=== PATIENT | female | born 1990 | race Caucasian/White ===

== ENCOUNTER 2018-09-30 19:17 | Emergency (ER) | payer MEDICAID, SELFPAY ==
[2018-09-30 19:18] VITALS: BP 129/87; PULSE 98; RESP 17; TEMP 36.6; O2SAT 98; BMI 21.2
--- NOTE | 2018-09-30 20:48 | EKG12_ITS ---
Test Reason : CP Blood Pressure : / mmHG Vent. Rate : 071 BPM Atrial Rate : 071 BPM P-R Int : 156 ms QRS Dur : 088 ms QT Int : 386 ms P-R-T Axes : 008 070 052 degrees QTc Int : 419 ms Normal sinus rhythm Normal ECG Confirmed by CHARLETTE AGUILAR, GIOVANA ([id number]), editor house organ ANA MARIA AGARWAL ([id number]) on 10/04/2018 2:07:14 PM Referred By: Confirmed By:ASHA OVALLES MD
--- NOTE | 2018-09-30 20:55 | RAD_ITS ---
STUDY: X-RAY CHEST REASON FOR EXAM: Female, 28 years old. Increased fatigue TECHNIQUE: Single frontal image. COMPARISON: June 29, 2015 FINDINGS: The lungs are clear and expanded. There is no demonstrated pleural abnormality. Normal size heart. Normal mediastinum and tiffani. Normal visualized pulmonary arteries. Normal visualized aortic arch and descending thoracic aorta. Normal visualized thoracic spine. Normal visualized ribs, clavicles, and shoulders. There is no demonstrated abnormality of the visualized soft tissue structures of the upper abdomen. RAD/Chest 1 View (Portable) IMPRESSION: Normal x-ray examination of the chest. Electronically Signed: Sofia Martel MD at 21:12 EDT Tel , Service support ,
[2018-09-30 21:01] LABS: Mucous, Urine 0 SEEN /hpf (<or=2+); Red Blood Cells-Urine 0 SEEN /hpf (0-5); White Blood Cells 0 SEEN /hpf (0-5)
[2018-09-30 21:06] LABS: Color, Urine Yellow (Yellow); Glucose, Dipstick Normal (Normal); Ketone-Dipstick 5 mg/dl (Negative); Leukocyte Esterase-Dipstick 25 /ul (Negative); Nitrite-Dipstick Negative (Negative); Occult Blood-Urine Negative /ul (Negative); Protein-Dipstick Negative (Negative); Urine Bilirubin Dipstick Negative (Negative); Urine Clarity Sl. Cloudy (Clear); Urine Urobilinogen Normal (Normal)
[2018-09-30 21:14] LABS: Absolute Lymphocyte Count 1.61 X10^3/uL (0.83-4.51); Absolute Neutrophil Count 3.3 X10^3/uL (2.0-7.7); Basophil# 0.02 X10^3/uL; Basophil% 0.4 % (0-1); Eosinophil# 0.05 X10^3/uL; Hematocrit 34.3 % (37-47); Hemoglobin 11.8 g/dL (12.0-15.0); Lymphocyte # 1.61 X10^3/ul (4.0); Lymphocyte % 30.6 % (19-41); Mean Corp Hgb Conc 34.4 g/dL (32-36); Mean Corpuscular Hgb 30.6 pg (27.0-32.0); Mean Corpuscular Volume 89.1 fL (81-99); Mean Platelet Vol. 9.2 fl (6.2-12.0); Monocyte# 0.31 X10^3/uL; Monocyte% 5.9 % (0-10); NRBC Flagged by Analyzer 0 % (0-5); Neutrophil # 3.25 X10^3/uL (2.7-7.7); Neutrophil % 61.7 % (47-70); Platelet Count 139 K/mm3 (150-450); RBC Distribution Width CV 12.3 % (11.6-14.6); RBC Distribution Width SD 40.1 fl (35.1-43.9); Red Blood Count 3.85 M/mm3 (4.2-5.4); White Blood Count 5.3 K/mm3 (4.4-11.0)
[2018-09-30 21:16] LABS: Bacteria 1+ /hpf (None Seen); Squamous Epithelial Cells - UA 5-10 SEEN /hpf (5-10)
[2018-09-30 21:18] VITALS: BP 124/86; PULSE 89; RESP 16; O2SAT 97
[2018-09-30 21:22] LABS: Internal QC Validated? YES +Cl - CLEAR BKGD; Pregnancy, Serum, hCG Quali. NEGATIVE Negative
[2018-09-30] MEDS: 0.9% Normal Saline 1,000 ML 1000 ML IV (21:33)
[2018-09-30 21:38] LABS: Anion Gap 5 (5-15); BUN 14 mg/dL (7-18); BUN/Creat Ratio 17.2 RATIO (10-20); Calcium,Total 9.2 mg/dL (8.5-10.1); Chloride 106 mmol/L (98-107); Creatinine, Serum 0.81 mg/dL (0.55-1.02); EST Glomerular Filtration Rate 89 mL/min (>60); Est Glom Filt Rate - Afr Amer 107 mL/min (>60); Estimated Creatinine Clearance 93.05 ml/min; Glucose 89 mg/dL (74-106); Potassium 3.9 mmol/L (3.5-5.1); Sodium Level 138 mmol/L (136-145); Thyroid Stim Hormone (TSH) 1.53 uIU/mL (0.358-3.74)
--- NOTE | 2018-09-30 22:08 | ED.DCSUM_ITS ---
- ER Visit Summary Date of Service: 09/30/18 Chief Complaint: Fatigue History of Present Illness: The patient is a 28 F presenting with fatigue. Patient states she has felt tired for the past couple of weeks. She states she fell asleep at work today. She denies passing out. She states she just feels very tired and fatigued. She denies fever. She denies chest pain or shortness of breath. Denies abdominal pain, nausea, vomiting, diarrhea. She denies urinary complaints. She denies weakness or numbness. She has a history of anemia while . She is unsure if she could be currently. Physical Examination: Vitals are stable. Patient is afebrile. Alert no acute distress. HEENT exam is unremarkable. Neck is supple. No meningismus Lungs are clear and equal bilaterally. Heart is regular rate and rhythm. Abdomen is soft nontender nondistended. Extremities are unremarkable. Skin is warm and dry. No focal neurologic deficit. Remainder of exam is unremarkable. Emergency Department Course and Treatment: EKG is sinus rhythm rate of 71 with no acute ischemic changes. Chest x-ray shows no acute process. CBC normal except hemoglobin 11.8, platelet 139. Chemistries unremarkable. TSH is normal. Urinalysis unremarkable. Troponin is negative. hCG negative. [place] negative. Patient given IV fluids. On reevaluation she is resting comfortably. She is advised to follow up with primary care physician. Advised return to ED for worsening complaints. Disposition: Discharge home Impression: Fatigue This note was generated with [employer] dictation software. It may contain incorrect words, spelling, and punctuation that were not noted in review of the chart prior to signing ED Disposition - Plan for ED Patient: Referrals: Kwasi Yan III, MD [STAFF PHYSICIAN] - Additional Instructions: You were seen in the ED today for fatigue. There was no emergent cause found. Follow-up with Dr. Yan, primary care physician
[2018-09-30 22:36] LABS: Internal QC Validated? YES +Cl - CLEAR BKGD; Monotest Negative (Negative)
[2018-09-30 23:00] VITALS: BP 128/85; PULSE 85; RESP 16; O2SAT 98
--- NOTE | 2018-09-30 23:14 | ED.DEP ---
ED Disposition - Plan for ED Patient: Referrals: Kwasi Yan III, MD [STAFF PHYSICIAN] - Additional Instructions: You were seen in the ED today for fatigue. There was no emergent cause found. Follow-up with Dr. Yan, primary care physician
--- NOTE | 2018-09-30 23:19 | ED.RN ---
bedside report given to leora mc
[2018-09-30 23:43] VITALS: BP 115/76; PULSE 68; RESP 16; O2SAT 100
== END 2018-09-30 23:44 | disposition home or self-care (01) ==
LOC: ED 20:46
PROVIDERS: Emergency Provider Emergency Medicine
DX: R53.83 Other fatigue (principal)
CPT/HCPCS: 71045; 80048; 81001; 84443; 84484; 84703; 85025; 86308; 93005; 99283; J7030; A4216

== ENCOUNTER 2019-10-06 19:57 | Emergency (ER) | payer MEDICAID, SELFPAY ==
[2019-10-06 19:58] VITALS: BP 150/88; PULSE 80; RESP 18; TEMP 36.3; O2SAT 97; BMI 20.9
--- NOTE | 2019-10-06 20:27 | CT_ITS ---
STUDY: CT BRAIN WITHOUT CONTRAST REASON FOR EXAM: Female, 29 years old. HEADACHE X 2 DAYS. NKI. Not =-pt. shielded RADIATION DOSAGE (If Supplied By Facility): CTDIvol = ( 44.99 ) mGy, DLP = ( 796.11 ) mGycm TECHNIQUE: Transaxial CT imaging of the brain was performed without administration of intravenous contrast material. Individualized dose optimization techniques were used for this CT. COMPARISON: No relevant priors. FINDINGS: Normal soft tissue structures. Normal calvarium. Normal size ventricles and extra-axial spaces for the patient''s age. Normal white matter tracts of the cerebral hemispheres. Normal basal ganglia and thalami. Normal brainstem. Normal cerebellum. There is no intracranial hemorrhage. There are no findings of an acute ischemic infarction. Normal visualized paranasal sinuses. CT/Brain/Head without Contrast IMPRESSION: Normal unenhanced CT scan of the brain. Electronically Signed: Madie Khanna MD at 21:03 EDT Tel , Service support ,
[2019-10-06 20:57] LABS: Absolute Neutrophil Count 2.2 X10^3/uL (2.0-7.7); Basophil# 0.02 X10^3/uL; Basophil% 0.4 % (0-1); Eosinophil# 0.07 X10^3/uL; Eosinophils% 1.6 % (0-5); Hemoglobin 11.7 g/dL (12.0-15.0); Lymphocyte % 40.3 % (19-41); Mean Corp Hgb Conc 33.4 g/dL (32-36); Mean Corpuscular Hgb 30.6 pg (27.0-32.0); Mean Corpuscular Volume 91.6 fL (81-99); Mean Platelet Vol. 9.7 fl (6.2-12.0); Monocyte# 0.39 X10^3/uL; Monocyte% 8.7 % (0-10); NRBC Flagged by Analyzer 0 % (0-5); Neutrophil # 2.18 X10^3/uL (2.7-7.7); Neutrophil % 48.8 % (47-70); Platelet Count 167 K/mm3 (150-450); RBC Distribution Width CV 11.9 % (11.6-14.6); RBC Distribution Width SD 39.5 fl (35.1-43.9); Red Blood Count 3.82 M/mm3 (4.2-5.4); White Blood Count 4.5 K/mm3 (4.4-11.0)
[2019-10-06 21:02] LABS: Internal QC Validated? YES +Cl - CLEAR BKGD; Pregnancy, Serum, hCG Quali. NEGATIVE Negative
[2019-10-06 21:04] LABS: Anion Gap 3 (5-15); BUN 17 mg/dL (7-18); BUN/Creat Ratio 19.3 RATIO (10-20); Calcium,Total 8.9 mg/dL (8.5-10.1); Chloride 111 mmol/L (98-107); Creatinine, Serum 0.88 mg/dL (0.55-1.02); EST Glomerular Filtration Rate 81 mL/min (>60); Est Glom Filt Rate - Afr Amer 97 mL/min (>60); Estimated Creatinine Clearance 81.45 ml/min; Glucose 120 mg/dL (74-106); Potassium 3.8 mmol/L (3.5-5.1); Sodium Level 140 mmol/L (136-145)
[2019-10-06] MEDS: Ketorolac 15 MG/ML Vial IV (21:12)
[2019-10-06] MEDS: 0.9% Normal Saline 1,000 ML 1000 ML IV (21:12)
--- NOTE | 2019-10-06 21:29 | ED.DCSUM_ITS ---
- ER Visit Summary Date of Service: 10/06/19 Chief Complaint: Headache History of Present Illness: The patient is a 29 F with no primary care physician. She reports that she has a headache that began 2 days ago. It began on the right side of her head and is gradually spread. She describes it as a sharp pain that feels like someone yanking my hair. 10 of 10 at worst and 7 out of 10 currently. Is worsened by touching her head. Is relieved by nothing. She denies any associated nausea, vomiting, photophobia, or change in her vision. She denies any recent injury to her head. Patient reports she is never had anything like this before. No family history of migraines or aneurysms. Her review of systems is otherwise negative. Physical Examination: Vitals: Stable. Afebrile. General: Well-nourished and well-developed. Head: Normocephalic atraumatic. Neck: Supple, no lymphadenopathy. No JVD. Nontender. Cardiovascular: Regular rate and rhythm. No murmurs. Respiratory: No respiratory distress. Clear to auscultation bilaterally. Abdominal: Soft, nontender, nondistended, normal bowel sounds. No guarding, rebound, or peritoneal signs. Back: Nontender. Extremities: Nontender, no edema. Skin: Normal color, no rash. Neurologic: Alert and oriented ?3. Cranial nerves II through XII are intact. Normal strength and sensation. Psych: Normal affect. Test Results: CBC shows an H&H of 11.7 and 35.0. Chem-7 shows a chloride of 111 and glucose 120. test is negative. Clinical Impression(s) from Imaging Studies Brain CT 10/06/19 20:27 IMPRESSION: Normal unenhanced CT scan of the brain. Electronically Signed: Madie Khanna MD at 21:03 EDT Tel , Service support , Emergency Department Course and Treatment: Patient had an IV placed. She was given a liter of normal saline and Toradol IV. She is resting comfortably. Treatment Plan: Had a prolonged discussion the patient this time I do not have an explanation for her headache. She is instructed on symptomatic care. Push fluids. Follow-up with Dr. Alejandre in 1 to 2 days if not improving. Return to t emergency department for any worsening symptoms. Disposition: To home in improved and stable condition. Impression: 1. Cephalgia. This note was generated with [employer] dictation software. It may contain incorrect words, spelling, and punctuation that were not noted in review of the chart prior to signing ED Disposition - Plan for ED Patient: Instructions: ED Headache Unspecified Prescriptions: Metoclopramide [Reglan] 10 mg PO 4X/DAY PRN #20 tab PRN Reason: Headache Prescription Printed Referrals: Kaye Alejandre MD [STAFF PHYSICIAN] - 1-2 Days if not improving
[2019-10-06 21:56] VITALS: PULSE 72; RESP 16; O2SAT 99
== END 2019-10-06 21:57 | disposition home or self-care (01) ==
LOC: ED 20:29
PROVIDERS: Emergency Provider Emergency Medicine
DX: R51 Headache (principal)
CPT/HCPCS: 70450; 80048; 84703; 85025; 96361; 96374; 99283; A4216

== ENCOUNTER 2023-03-06 17:54 | Emergency (ER) | payer MEDICAID, SELFPAY ==
[2023-03-06 17:55] VITALS: BP 116/72; PULSE 98; RESP 14; TEMP 36.2; O2SAT 100; BMI 22.9
--- NOTE | 2023-03-06 18:30 | EDS_ITS ---
HPI HPI - Female History of Present Illness Chief Complaint: Vag Bleeding PFSH PFSH Medical History (Updated 03/06/23 @ 18:21 by Dayana Olivares) Anemia Syncopal episodes Home Medications metoclopramide HCl 10 mg tablet 10 mg PO 4X/DAY PRN Headache #20 tabs 10/06/19 [Rx Last Taken Unknown] norethindrone acetate 1 mg-ethinyl estradiol 20 mcg tablet 1 tab PO DAILY 10/06/19 [History Last Taken Unknown] Allergy/AdvReac Type Severity Reaction Status Date / Time No Known Allergies Allergy Verified 03/06/23 17:54 Social History Smoking Status: Never smoker EXAM Physical Exam Const Vital Signs: 03/06/23 17:55 03/06/23 20:23 Temperature 97.2 F L Temperature Source Temporal Pulse Rate 98 82 Respiratory Rate 14 16 Blood Pressure 116/72 129/88 H Blood Pressure Mean 86 101 Pulse Ox 100 97 Oxygen Delivery Method Room Air MDM MDM MDM Narrative Medical decision making narrative: HISTORY OF PRESENT ILLNESS: 32-year-old female presents with vaginal bleeding. Notes she think she is on her period. Started menstrual cycle on Thursday. Notes things were normal . Then she developed heavier bleeding today soaking through 2 sets of pads prior to arrival. Denies any chest pain, shortness of breath, syncope, fatigue. D enies any abdominal pain. Denies blood thinners REVIEW OF SYSTEMS: Pertinent positives: Vaginal bleeding Pertinent negatives: Pain, chest pain, shortness breath, fatigue, lightheadedness, syncope PHYSICAL EXAM: Nursing triage notes reviewed, Vital signs reviewed Constitutional: please see mdm HENT: MMM Eyes: Pupils equal round and reactive to light, Extraocular muscles intact Neck: No stridor, no JVD, full neck ROM Lungs: Clear to auscultation, No wheezing or rales. No increased work of breathing, no conversational dyspnea, no accessory muscle use, no nasal flaring. No respiratory distress noted Heart: Regular rate and rhythm, No murmurs, No rubs and No gallops, 2+ distal pulses (radial, femoral, posterior tibial) in all extremities Abdomen: Soft, there is no tenderness, rigidity, rebound or guarding, no obvious peritoneal signs, no palpable pulsatile abdominal masses, no auscultated abdominal bruit : No CVAT Extremities: No edema Neuro: No focal neurological deficits, cranial nerves II through XII intact, 5/5 strength in all extremities. Intact sensation to light touch in all extremities, 2+ reflexes bilateral patella tendons. Normal gait. No ataxia. Skin: No rash or lesions noted MEDICAL DECISION MAKING: Chief Complaint: Vaginal bleeding External records reviewed: Prior labs reviewed: Baseline hemoglobin 1.7 from 2019 Factors affecting care: none, no blood thinners Social determinants of health: none History obtained from others: none Consults: none MDM Narrative: 32-year-old female presents with heavy vaginal bleeding. Abdominal exam is milind ign I considered the following differential diagnosis: Anemia, , ectopic , abnormal uterine bleeding I obtained a broad lab workup to further elucidate the etiology of the patient's complaints ALL IMAGES (IF OBTAINED) HAVE BEEN PERSONALLY REVIEWED AND INTERPRETED BY MYSELF. CBC shows no leukocytosis, mild stable anemia, noted mild thrombocytopenia similar to prior BMP without evidence of significant electrolyte abnormalities, no anion gap, no acute kidney injury. Urinalysis shows no evidence of urinary inflammation suggestive of UTI Urine test is negative The synthesis of the patient's history, physical exam labs suggest no life- threatening etiology likely abnormal uterine bleeding. Indication for transfusion or further ED evaluation or admission at this time. Patient is appropriate discharge home with close OB follow-up. The patient and/or family, caregivers express understanding. The patient and/or family, caregivers agrees with the plan. Shared decision making: I will have a discussion with the patient and or visitors regarding risk/benefits of further testing or admission. They will be made aware of of the risk/benefits inherent in this decision they will be given the opportunity to voice understanding. Total critical care time today provided was at least 0 minutes. This excludes separately billable procedures. Critical care time (if documented) is secondary to the patient having high probability of clinically significant/life threatening deterioration in the patient's condition which required my urgent intervention. Impression: 1. Heavy vaginal bleeding 2. Anemia 3. Thrombocytopenia Dispo: Discharge Lab Data Labs: Laboratory Results - last 24 hr 03/06/23 03/06/23 16:45 19:10 WBC 3.8 L RBC 3.45 L Hgb 10.7 L Hct 30.9 L MCV 89.6 MCH 31.0 MCHC 34.6 RDW Std Deviation 40.8 RDW Coeff of Yoseph 12.6 Plt Count 141 L MPV 8.9 Immature Gran % (Auto) 0.300 Neut % (Auto) 64.0 Lymph % (Auto) 28.9 Starke % (Auto) 5.8 Eos % (Auto) 0.5 Baso % (Auto) 0.5 Absolute Neuts (auto) 2.4 Absolute Lymphs (auto) 1.10 Nucleated RBC % 0 Sodium 140 Potassium 3.8 Chloride 108 H Carbon Dioxide 28.0 Anion Gap 4 L BUN 11 Creatinine 0.80 Estim Creat Clear Calc 87.18 Est GFR (MDRD) Af Amer 106 Est GFR (MDRD) Non-Af 88 BUN/Creatinine Ratio 13.8 Glucose 90 Calcium 9.5 Urine Color SEE COMMENT BELOW Urine Clarity Cloudy Urine pH 7.0 Ur Specific [place] 1.010 Urine Protein 100 H Urine Glucose (UA) Normal Urine Ketones Negative Urine Occult Blood 250 H Urine Nitrite Negative Urine Bilirubin Negative Urine Urobilinogen Normal Ur Leukocyte Esterase 25 H Urine Test Negative Blood Type A POSITIVE Discharge Plan Triage Chief Complaint: Vag Bleeding ED Provider: Dimitri Jerez Dx/Rx/DC Orders Instructions: ED Dysfunctional Uterine Bleeding Prescriptions: No Action norethindrone ac-eth estradiol 1 EACH tablet 1 tab PO DAILY metoclopramide HCl 10 MG tablet 10 mg PO 4X/DAY PRN (Reason: Headache) Qty: 20 0RF Primary Care Provider: Care Physician,No Primary Referrals: Renate East MD [Med Staff - Active Staff] - Activity Restrictions/Additional Instructions: Thank you for trusting us with your care today! Your hemoglobin level (the blood test we used to determine if you are anemic or have low blood counts) was 10.7 today. Downtrending slightly from prior hemoglobin in 2019 of 11.7. It is not at the significant level of 7. Did not require blood transfusion. You are okay to be discharged. You should follow-up with [facility] the next available appointment. Please return if you develop chest pain, shortness of breath, if you lose consciousness, you develop lightheadedness, excessive fatigue or pallor of your skin. Please take Tylenol (2 pills, 650 mg), ibuprofen (2 pills, 400 mg) every 6 hours as needed for pain and fever control. Please return to the emergency department if your symptoms change or worsen. Please follow with your primary care physician for further outpatient evaluation and management. Disposition Disposition: Home, Self Care Discharge Date/Time: 03/06/23 20:25
[2023-03-06 18:57] LABS: Absolute Neutrophil Count 2.4 X10^3/uL (2.0-7.7); Basophil# 0.02 X10^3/uL; Basophil% 0.5 % (0-1); Eosinophil# 0.02 X10^3/uL; Eosinophils% 0.5 % (0-5); Hematocrit 30.9 % (37-47); Hemoglobin 10.7 g/dL (12.0-15.0); Lymphocyte % 28.9 % (19-41); Mean Corp Hgb Conc 34.6 g/dL (32-36); Mean Corpuscular Volume 89.6 fL (81-99); Mean Platelet Vol. 8.9 fl (6.2-12.0); Monocyte# 0.22 X10^3/uL; Monocyte% 5.8 % (0-10); NRBC Flagged by Analyzer 0 % (0-5); Neutrophil # 2.44 X10^3/uL (2.7-7.7); Platelet Count 141 K/mm3 (150-450); RBC Distribution Width CV 12.6 % (11.6-14.6); RBC Distribution Width SD 40.8 fl (35.1-43.9); Red Blood Count 3.45 M/mm3 (4.2-5.4); White Blood Count 3.8 K/mm3 (4.4-11.0)
[2023-03-06] MEDS: 0.9% Normal Saline (1000mL) 1,000 ML 1000 ML IV (19:08)
[2023-03-06 19:09] LABS: Anion Gap 4 (5-15); BUN 11 mg/dL (7-18); BUN/Creat Ratio 13.8 RATIO (10-20); Calcium,Total 9.5 mg/dL (8.5-10.1); Chloride 108 mmol/L (98-107); EST Glomerular Filtration Rate 88 mL/min (>60); Est Glom Filt Rate - Afr Amer 106 mL/min (>60); Estimated Creatinine Clearance 87.18 ml/min; Glucose 90 mg/dL (74-106); Potassium 3.8 mmol/L (3.5-5.1); Sodium Level 140 mmol/L (136-145)
[2023-03-06 19:22] LABS: Glucose, Dipstick Normal (Normal); Ketone-Dipstick Negative (Negative); Leukocyte Esterase-Dipstick 25 /ul (Negative); Nitrite-Dipstick Negative (Negative); Occult Blood-Urine 250 /ul (Negative); Protein-Dipstick 100 mg/dl (Negative); Urine Bilirubin Dipstick Negative (Negative); Urine Clarity Cloudy (Clear); Urine Urobilinogen Normal (Normal)
[2023-03-06 20:04] LABS: Color, Urine SEE COMMENT BELOW (Yellow); Internal QC Validated? YES +Cl - CLEAR BKGD; Pregnancy, Urine Negative Negative
[2023-03-06 20:23] VITALS: BP 129/88; PULSE 82; RESP 16; O2SAT 97
== END 2023-03-06 20:25 | disposition home or self-care (01) ==
PROVIDERS: Emergency Provider Emergency Medicine; Visit Provider Emergency Medicine
DX: N93.9 Abnormal uterine and vaginal bleeding, unspecified (principal); D69.6 Thrombocytopenia, unspecified; D64.9 Anemia, unspecified
CPT/HCPCS: 80048; 81002; 81025; 85025; 86900; 86901; 96360; 99282; J7030

== ENCOUNTER → 2023-03-13 | Outpatient (CLI) | payer MEDICAID, SELFPAY ==
[2023-03-13 09:19] LABS: Absolute Lymphocyte Count 1.27 X10^3/uL (0.83-4.51); Absolute Neutrophil Count 1.8 X10^3/uL (2.0-7.7); Basophil# 0.03 X10^3/uL; Basophil% 0.8 % (0-1); Eosinophil# 0.07 X10^3/uL; Hematocrit 33.6 % (37-47); Lymphocyte # 1.27 X10^3/ul (0.83-4.51); Mean Corp Hgb Conc 32.7 g/dL (32-36); Mean Corpuscular Hgb 29.8 pg (27.0-32.0); Mean Corpuscular Volume 91.1 fL (81-99); Mean Platelet Vol. 9.6 fl (6.2-12.0); Monocyte# 0.36 X10^3/uL; Monocyte% 10.2 % (0-10); NRBC Flagged by Analyzer 0 % (0-5); Neutrophil # 1.79 X10^3/uL (2.7-7.7); Neutrophil % 50.7 % (47-70); Platelet Count 183 K/mm3 (150-450); RBC Distribution Width CV 12.2 % (11.6-14.6); RBC Distribution Width SD 40.5 fl (35.1-43.9); Red Blood Count 3.69 M/mm3 (4.2-5.4); White Blood Count 3.5 K/mm3 (4.4-11.0)
[2023-03-13 09:43] LABS: Ferritin 6 ng/mL (8-252); Iron 54 ug/dL (50-170); Iron Binding Capacity,Total 383 ug/dL (250-450); PERCENT IRON SATURATION 14.1 % (15.0-55.0)
== END | disposition home or self-care (01) ==
PROVIDERS: Referring Provider Obstetrics & Gynecology; Visit Provider Obstetrics & Gynecology
DX: D64.9 Anemia, unspecified (principal)
CPT/HCPCS: 36415; 82728; 83540; 83550; 85025

== ENCOUNTER → 2023-03-19 | Outpatient (CLI) | payer MEDICAID, SELFPAY ==
--- NOTE | 2023-03-19 16:18 | US_ITS ---
STUDY: ULTRASOUND OF THE FEMALE PELVIS - LIMITED REASON FOR EXAM: Female, 32 years old abnormal uterine bleeding TECHNIQUE: Transabdominal and Transvaginal TECHNICAL QUALITY: Adequate. COMPARISON: None. FINDINGS: The uterus is anteverted and is in a midline position. The uterus measures 10.9 x 7.1 x 5.6 cm. Normal uterine cervix. The endometrium measures 17.1 mm in thickness, and is heterogeneous (striated). There is no demonstrated endometrial mass. There is no demonstrated myometrial mass. The right ovary measures 3.8 x 2.6 x 2.1 cm. There is a septated 2.4 cm cyst. . There is normal arterial and normal venous vascularity. The left ovary measures 2.8 x 3.3 x 1.8 cm. There is no left ovarian cyst or ovarian mass. There is no visualized left adnexal mass or complex lesion. There is normal arterial and normal venous vascularity. There is no fluid in the cul-de-sac. Bladder is sonographically normal US/Pelvic w/ Transvaginal IMPRESSION: Endometrium is heterogeneous and thickened but still within normal range for a patient of this age. An underlying polyp could be present and overlooked due to the heterogeneity of the endometrium. Recommend a 3-4 week follow-up ultrasound to see if the endometrium remains abnormally thickened or returns to more normal expected thickness, or MRI could be performed for further evaluation of the uterus and endometrium. Septated right ovarian cyst, no specific follow-up needed Sonographically normal left ovary Electronically Signed: Cory Cuevas MD at 17:31 EST ,
--- OUTSIDE RECORDS SUMMARY | 2023-03-19 16:30 | XMS RPT_ITS | CCD ---
Author Name Unknown Address [address] [place] [address] Organization [facility] Care Team Providers Care Key Holder Name Role Phone Unavailable Primary Care Provider Unavailabl e Medications Current Medications Medication Drug Class(es) Dates Sig (Normalized) Sig (Original) cetirizine hydrochloride 10 mg oral tablet (1 source) Histamine-1 Receptor Antagonist Start: 06-14-2022 End: 07-14-2022 take 1 tablet by mouth once daily cetirizine (ZYRTEC) 10 mg tablet Take 1 tablet by mouth once daily. 30 tablet 0 06/14/2022 07/14/2022 Active Completed/Discontinued Medications Medication Drug Class(es) Dates Sig (Normalized) Sig (Original) benzonatate 100 mg oral capsule (1 source) Non-narcotic Antitussive Start: 08-28-2018 End: 10-30-2021 take 2 capsules by mouth every eight hours as needed benzonatate (TESSALON PERLE) 100 mg capsule Take 2 capsules by mouth three times daily as needed. 30 capsule 0 08/28/2018 10/30/2021 Discontinued (Course of therapy completed) Problems Active Problems Problem Classification Problem Date Documented Date Episodic/Chronic Administrative/social admission (1 source) Patient encounter status; Translations: [Encounter for other administrative examinations] Episodic Cardiac dysrhythmias (2 sources) Palpitations; Translations: [Palpitations] Episodic Other complications of (5 sources) Anemia of ; Translations: [Anemia complicating , unspecified trimester] Onset: 03-17-2014 03-17-2014 Chronic Other ear and sense organ disorders (1 source) Acute otitis externa of left ear; Translations: [Unspecified acute noninfective otitis externa, left ear] Episodic Other eye disorders (1 source) Vitreous floaters; Translations: [Other vitreous opacities, unspecified eye] Chronic Other upper respiratory infections (4 sources) Pharyngitis; Translations: [Acute pharyngitis, unspecified] Episodic Past or Other Problems Problem Classification Problem Date Documented Da te Episodic/Chronic Short gestation; low weight; and growth retardation (5 sources) growth restriction; Translations: [IUGR (intrauterine growth restriction)] Onset: 05-31-2014 03-04-2021 Episodic Results Test Name Value Interpretation Reference Range Facil ity Vital Signs Date Time Vital Sign Value Performing Clinician Desiree craig 01-13-2023 19:11-0500 Body temperature 97.59 [degF] Domenic Guo LEGAL OFFICE ADMINISTRATOR.DENTISTRY PROFESSOR Work Phone: [facility] 01-13-2023 19:11-0500 Body weight 59.33 kg Domenic Guo LEGAL OFFICE ADMINISTRATOR.DENTISTRY PROFESSOR Work Phone: [facility] 01-13-2023 19:11-0500 Diastolic blood pressure 74 mm[Hg] Domenic Guo LEGAL OFFICE ADMINISTRATOR.DENTISTRY PROFESSOR Work Phone: [facility] 01-13-2023 19:11-0500 Heart rate 82 /min Domenic Guo LEGAL OFFICE ADMINISTRATOR.DENTISTRY PROFESSOR Work Phone: [facility] 01-13-2023 19:11-0500 Respiratory rate 18 /min Domenic Guo LEGAL OFFICE ADMINISTRATOR.DENTISTRY PROFESSOR Work Phone: [facility] 01-13-2023 19:11-0500 SaO2% (BldA) [Mass fraction] 99 % Domenic Guo LEGAL OFFICE ADMINISTRATOR.DENTISTRY PROFESSOR Work Phone: [facility] 01-13-2023 19:11-0500 Systolic blood pressure 110 mm[Hg] Domenic Guo LEGAL OFFICE ADMINISTRATOR.DENTISTRY PROFESSOR Work Phone: [facility] 01-03-2023 09:37-0400 Body temperature 97.7 [degF] Thao Dash LEGAL OFFICE ADMINISTRATOR.DENTISTRY PROFESSOR Work Phone: [facility] 01-03-2023 09:37-0400 Body weight 59.42 kg Thao Linden LEGAL OFFICE ADMINISTRATOR.DENTISTRY PROFESSOR Work Phone: [facility] 01-03-2023 09:37-0400 Diastolic blood pressure 66 mm[Hg] Thao Linden LEGAL OFFICE ADMINISTRATOR.DENTISTRY PROFESSOR Work Phone: [facility] 01-03-2023 09:37-0400 Heart rate 97 /min Thao Linden LEGAL OFFICE ADMINISTRATOR.DENTISTRY PROFESSOR Work Phone: [facility] 01-03-2023 09:37-0400 Respiratory rate 16 /min Thao Dash LEGAL OFFICE ADMINISTRATOR.DENTISTRY PROFESSOR Work Phone: [facility] 01-03-2023 09:37-0400 SaO2% (BldA) [Mass fraction] 98 % Thao Linden LEGAL OFFICE ADMINISTRATOR.DENTISTRY PROFESSOR Work Phone: [facility] 01-03-2023 09:37-0400 Systolic blood pressure 110 mm[Hg] Thao Linden LEGAL OFFICE ADMINISTRATOR.DENTISTRY PROFESSOR Work Phone: [facility] 06-14-2022 10:58-0400 Body temperature 96.49 [degF] Rabia Athy PA-C Work Phone: [facility] 06-14-2022 10:58-0400 Body weight 60.06 kg Rabia Athy PA-C Work Phone: [facility] 06-14-2022 10:58-0400 Diastolic blood pressure 62 mm[Hg] Rabia Athy PA-C Work Phone: [facility] 06-14-2022 10:58-0400 Heart rate 81 /min Rabia Athy PA-C Work Phone: [facility] 06-14-2022 10:58-0400 Respiratory rate 18 /min Rabia Athy PA-C Work Phone: [facility] 06-14-2022 10:58-0400 SaO2% (BldA) [Mass fraction] 98 % Rabia Athy PA-C Work Phone: [facility] 06-14-2022 10:58-0400 Systolic blood pressure 110 mm[Hg] Rabia Athy PA-C Work Phone: [facility] 12-14-2021 12:13-0400 Body temperature 99.1 [degF] Dixie Tovar LEGAL OFFICE ADMINISTRATOR.DENTISTRY PROFESSOR Work Phone: [facility] 12-14-2021 12:13-0400 Body weight 58.51 kg Dixie Tovar LEGAL OFFICE ADMINISTRATOR.DENTISTRY PROFESSOR Work Phone: [facility] 12-14-2021 12:13-0400 Diastolic blood pressure 80 mm[Hg] Dixie Tovar LEGAL OFFICE ADMINISTRATOR.DENTISTRY PROFESSOR Work Phone: [facility] 12-14-2021 12:13-0400 Heart rate 97 /min Dixie Tovar LEGAL OFFICE ADMINISTRATOR.DENTISTRY PROFESSOR Work Phone: [facility] 12-14-2021 12:13-0400 Respiratory rate 16 /min Dixie Tovar LEGAL OFFICE ADMINISTRATOR.DENTISTRY PROFESSOR Work Phone: [facility] 12-14-2021 12:13-0400 SaO2% (BldA) [Mass fraction] 99 % Dixie Tovar LEGAL OFFICE ADMINISTRATOR.DENTISTRY PROFESSOR Work Phone: [facility] 12-14-2021 12:13-0400 Systolic blood pressure 128 mm[Hg] Dixie Tovar LEGAL OFFICE ADMINISTRATOR.DENTISTRY PROFESSOR Work Phone: [facility] 10-30-2021 11:24-0400 Body height 162.6 cm Ursula Older LEGAL OFFICE ADMINISTRATOR.DENTISTRY PROFESSOR Work Phone: [facility] 10-30-2021 11:24-0400 Body weight 57.15 kg Ursula Older LEGAL OFFICE ADMINISTRATOR.DENTISTRY PROFESSOR Work Phone: [facility] 10-30-2021 11:24-0400 Diastolic blood pressure 72 mm[Hg] Ursula Older LEGAL OFFICE ADMINISTRATOR.DENTISTRY PROFESSOR Work Phone: [facility] 10-30-2021 11:24-0400 Heart rate 102 /min Ursula Older LEGAL OFFICE ADMINISTRATOR.DENTISTRY PROFESSOR Work Phone: [facility] 10-30-2021 11:24-0400 Respiratory rate 16 /min Ursula Older LEGAL OFFICE ADMINISTRATOR.DENTISTRY PROFESSOR Work Phone: [facility] 10-30-2021 11:24-0400 Systolic blood pressure 122 mm[Hg] Ursula Older LEGAL OFFICE ADMINISTRATOR.DENTISTRY PROFESSOR Work Phone: [facility] Encounters Encounter Date Encounter Type Care Provider Facility Start: 01-13-2023 End: 01-13-2023 ambulatory Facility:[facility] Start: 01-13-2023 End: 01-13-2023 Patient encounter procedure Domenic Guo LEGAL OFFICE ADMINISTRATOR.DENTISTRY PROFESSOR Work Phone: [facility] Procedures Date Procedure Procedure Detail Performing Clinician Start: 01-03-2023 STREP A MOLECULAR (POC) [facility] Provider Start: 12-14-2021 STREP A MOLECULAR (POC) Dixie Tovar LEGAL OFFICE ADMINISTRATOR.DENTISTRY PROFESSOR Work Phone: Start: 10-30-2021 Ecg routine ecg w/le ast 12 lds w/i&r [facility] Provider Start: 10-28-2021 Adult depression screening assessment Ursula Older LEGAL OFFICE ADMINISTRATOR.DENTISTRY PROFESSOR Work Phone: Plan of Treatment Date Care Activity Detail Author Start: 10-24-2026 Urine microalbumin profile [facility] Start: 04-15-2024 PAP TESTING PAP TESTING [facility] Start: 11-07-2022 Influenza vaccination C [facility] Start: 10-30-2022 COVID-19 VACCINE (#1) COVID-19 VACCI NE (#1) [facility] Immunizations Immunization Date Immunization Notes Care Provider Fa cility 04-01-2019 influenza, injectabl e, quadrivalent, contains preservative Ursula Older LEGAL OFFICE ADMINISTRATOR.DENTISTRY PROFESSOR Work Phone: [facility] 04-01-2019 influenza virus vaccine, unspecified formulation Thao Linden LEGAL OFFICE ADMINISTRATOR.DENTISTRY PROFESSOR Work Phone: [facility] 10-24-2016 tetanus toxoid, redu noemy diphtheria toxoid, and acellular pertussis vaccine, adsorbed Ursula Older LEGAL OFFICE ADMINISTRATOR.DENTISTRY PROFESSOR Work Phone: [facility] 12-19-2013 influenza, seasonal, injectable Ursula Older LEGAL OFFICE ADMINISTRATOR.DENTISTRY PROFESSOR Work Phone: [facility] Work Phone: 01-02-2011 influenza virus vaccine, unspecified formulation Ursula Older LEGAL OFFICE ADMINISTRATOR.DENTISTRY PROFESSOR Work Phone: [facility] Payers Date Payer Category Payer Medicaid [id number] 2022 Medicaid [id number] 2012 Medicaid [id number] Social History Date Type Detail Facility Start: 10-30-2021 Tobacco smoking status NHIS Never smoked tobacco [facility] Start: 10-30-2021 Tobacco use and exposure Smokeless tobacco non-user [facility] Start: 10-30-2021 End: 01-13-2023 Alcohol intake Current non-drinker of alcohol (finding) [facility] Start: 10-29-2021 History SDOH Alcohol Frequency 2 [facility] Start: 10-29-2021 History SDOH Alcohol Std Drinks 1 [facility] Start: 10-29-2021 History SDOH Social Connections Phone 5 [facility] Start: 10-29-2021 History SDOH Social Connections Orthodoxy 3 [facility] Start: 10-29-2021 History SDOH Social Connections Living 7 [facility] Start: 10-29-2021 History SDOH Physical Activity MPS 98 [facility] Start: 10-29-2021 History SDOH Financial 4 [facility] Start: 1990 Sex Assigned At Not on file [facility] Start: 10-12-2021 End: 10-22-2021 Exposure to SARS-CoV-2 (event) Not sure [facility] Work Phone: Start: 10-28-2021 End: 04-04-2022 History of Social function [facility] Start: 10-28-2021 End: 04-04-2022 Social connection and isolation panel [facility] Do you belong to any clubs or organizations such as scientology groups, unions, fraternal or athletic groups, or school groups? No [facility] Are you now , , , , never or living with a partner? Never [facility] How often to you hav e a drink containing alcohol? Monthly or less [facility] How many standard dr inks containing alcohol do you have on a typical day? 1 or 2 [facility] How often do you hav e 6 or more drinks on 1 occasion? Never [facility] How hard is it for y ou to pay for the very basics like food, housing, medical care, and heating Not very hard [facility] Adult Depression Screening Assessment 0 [facility] Do you feel stress - tense, restless, nervous, or anxious, or unable to sleep at night because your mind is troubled all the time - these days [OSQ] Not at all [facility] (I/We) worried wheth er (my/our) food would run out before (I/we) got money to buy more. Never true [facility] Start: 04-01-2019 Gender identity Identifies as female gender (finding) [facility] Work Phone: Start: 04-01-2019 Sexual orientation Heterosexual (finding) [facility] Work Phone: Clinical Notes 05-01-2011 to 01-13-2023 Domenic Guo APRN.DENTISTRY PROFESSOR - 01/13/2023 7:16 PM Thao Lan APRN.DENTISTRY PROFESSOR - 01/03/2023 9:40 AM EDTCjose daniel Dumont PA-C - 06/14/2022 11:12 AM EDTPatijuan Umanzor Nm - 10/30/2021 12:54 PM EDT Note Date & Type Note Facility 01-13-2023 Note HNO ID: [id number] Author: Domenic Guo APRN.DENTISTRY PROFESSOR Service: ? Author Type: Nurse Practitioner Type: Progress Notes Filed: 01/13/2023 7:24 PM Note Text: Subjective HPI HPI Rosi Singleton is a 32 year old female who presents today for CC of nasal drainage, loss voice. This started 5 days ago. Has tried otc medication for relief. Symptoms are worsened by nothing. Risk factors no sick exposures known. .Patient presents with: drainage and loss of voice: X 5 days PAST MEDICAL HISTORY Diagnosis Date Anemia Fractured bone RIGHT WRIST Gestational thrombocytopenia (HCC) 05/01/2011 Ovarian cyst 2019 PAST SURGICAL HISTORY Procedure Laterality Date NONE ALLERGIES Patient has no known allergies. MEDICATIONS No prescriptions on file. FAMILY HISTORY Problem Relation Age of Onset No Known Problems Father No Known Problems Brother No Known Problems Brother Cancer Paternal Grandfather Heart Attack Paternal Grandfather No Known Problems Mother No Known Problems Half-sister Diabetes Daughter No Known Problems Daughter Social History Tobacco Use Smoking status: Never Smokeless tobacco: Never Vaping Use Vaping Use: Never used Substance Use Topics Alcohol use: No Drug use: No Review of Systems Constitutional: Negative for fever. HENT: Positive for congestion. Negative for ear pain, nosebleeds, sinus pain and sore throat. Respiratory: Negative for cough, shortness of breath and wheezing. Musculoskeletal: Negative for neck pain. Skin: Negative for itching and rash. Objective Blood pressure 110/74, pulse 82, temperature 36.4 ?C (97.6 ?F), temperature source Tympanic, resp. rate 18, weight 59.3 kg (130 lb 12.8 oz), last menstrual period 03/21/2019, SpO2 99 %. Physical Exam Constitutional: General: She is not in acute distress. Appearance: She is not toxic-appearing or diaphoretic. HENT: Head: Normocephalic and atraumatic. Right Ear: Hearing, tympanic membrane, ear canal and external ear normal. Left Ear: Hearing, tympanic membrane, ear canal and external ear normal. Nose: Nose normal. Mouth/Throat: Pharynx: Uvula midline. No pharyngeal swelling, oropharyngeal exudate, posterior oropharyngeal erythema or uvula swelling. Eyes: General: Lids are normal. No scleral icterus. Right eye: No discharge. Left eye: No discharge. Conjunctiva/sclera: Conjunctivae normal. Pupils: Pupils are equal, round, and reactive to light. Neck: Trachea: Trachea normal. Cardiovascular: Rate and Rhythm: Normal rate and regular rhythm. Heart sounds: Normal heart sounds. Pulmonary: Effort: Pulmonary effort is normal. Breath sounds: Normal breath sounds. Musculoskeletal: Cervical back: Normal range of motion and neck supple. Lymphadenopathy: Cervical: No cervical adenopathy. Right cervical: No superficial cervical adenopathy. Left cervical: No superficial cervical adenopathy. Skin: Findings: No rash. Neurological: Mental Status: She is alert and oriented to person, place, and time. ASSESSMENT/PLAN: 1. URI, acute - ICD9: 465.9, ICD10: J06.9 - Discussed viral etiology and rationale for treatment. - Symptomatic treatment with prn analgesia - Supportive care with fluids and rest - Follow up in 3-5 days if symptoms persist or sooner if worsening of symptoms - FLUTICASONE PROPIONATE 50 MCG/ACTUATION NASAL SPRAY,SUSPENSION - PREDNISONE 20 MG TABLET Domenic Guo APRN.TIAGO [facility] 01-13-2023 History of Present illness Narrative Subjective HPI HPI Rosi Singleton is a 32 year old female who presents today for CC of nasal drainage, loss voice. This started 5 days ago. Has tried otc medication for relief. Symptoms are worsened by nothing. Risk factors no sick exposures known. .Patient presents with: drainage and loss of voice: X 5 days PAST MEDICAL HISTORY Diagnosis Date Anemia Fractured bone RIGHT WRIST Gestational thrombocytopenia (HCC) 05/01/2011 Ovarian cyst 2019 PAST SURGICAL HISTORY Procedure Laterality Date NONE ALLERGIES Patient has no known allergies. MEDICATIONS No prescriptions on file. FAMILY HISTORY Problem Relation Age of Onset No Known Problems Father No Known Problems Brother No Known Problems Brother Cancer Paternal Grandfather Heart Attack Paternal Grandfather No Known Problems Mother No Known Problems Half-sister Diabetes Daughter No Known Problems Daughter Social History Tobacco Use Smoking status: Never Smokeless tobacco: Never Vaping Use Vaping Use: Never used Substance Use Topics Alcohol use: No Drug use: No Review of Systems Constitutional: Negative for fever. HENT: Positive for congestion. Negative for ear pain, nosebleeds, sinus pain and sore throat. Respiratory: Negative for cough, shortness of breath and wheezing. Musculoskeletal: Negative for neck pain. Skin: Negative for itching and rash. Objective Blood pressure 110/74, pulse 82, temperature 36.4 C (97.6 F), temperature source Tympanic, resp. rate 18, weight 59.3 kg (130 lb 12.8 oz), last menstrual period 03/21/2019, SpO2 99 %. Physical Exam Constitutional: General: She is not in acute distress. Appearance: She is not toxic-appearing or diaphoretic. HENT: Head: Normocephalic and atraumatic. Right Ear: Hearing, tympanic membrane, ear canal and external ear normal. Left Ear: Hearing, tympanic membrane, ear canal and external ear normal. Nose: Nose normal. Mouth/Throat: Pharynx: Uvula midline. No pharyngeal swelling, oropharyngeal exudate, posterior oropharyngeal erythema or uvula swelling. Eyes: General: Lids are normal. No scleral icterus. Right eye: No discharge. Left eye: No discharge. Conjunctiva/sclera: Conjunctivae normal. Pupils: Pupils are equal, round, and reactive to light. Neck: Trachea: Trachea normal. Cardiovascular: Rate and Rhythm: Normal rate and regular rhythm. Heart sounds: Normal heart sounds. Pulmonary: Effort: Pulmonary effort is normal. Breath sounds: Normal breath sounds. Musculoskeletal: Cervical back: Normal range of motion and neck supple. Lymphadenopathy: Cervical: No cervical adenopathy. Right cervical: No superficial cervical adenopathy. Left cervical: No superficial cervical adenopathy. Skin: Findings: No rash. Neurological: Mental Status: She is alert and oriented to person, place, and time. ASSESSMENT/PLAN: 1. URI, acute - ICD9: 465.9, ICD10: J06.9 - Discussed viral etiology and rationale for treatment. - Symptomatic treatment with prn analgesia - Supportive care with fluids and rest - Follow up in 3-5 days if symptoms persist or sooner if worsening of symptoms - FLUTICASONE PROPIONATE 50 MCG/ACTUATION NASAL SPRAY,SUSPENSION - PREDNISONE 20 MG TABLET Domenic Guo APRN.DENTISTRY PROFESSOR documented in this encounter [facility] 01-03-2023 Note HNO ID: [id number] Author: Thao Bowling APRN.DENTISTRY PROFESSOR Service: ? Author Type: Nurse Practitioner Type: Progress Notes Filed: 01/03/2023 10:18 AM Note Text: This note was created using Talkspaceriter. Subjective Rosi Singleton is a 32 year old female. HPI right sided throat pain started yesterday. She states that it feels really dry, she has been drinking water and using cough drops but that is not helping. She also states that last week she was having right index finger pain, then this week her right upper arm started to hurt and now the right side of her throat is. Denies any fever/chills or N/V. Review of Systems HENT: Positive for sore throat. Musculoskeletal: Right upper arm discomfort Objective BP 110/66 Pulse 97 Temp 36.5 ?C (97.7 ?F) Resp 16 Wt 59.4 kg (131 lb) LMP 03/21/2019 (Approximate) SpO2 98% BMI 22.49 kg/m? Physical Exam HENT: Mouth/Throat: Mouth: Mucous membranes are moist. Pharynx: Posterior oropharyngeal erythema (right side) present. Pulmonary: Effort: Pulmonary effort is normal. Neurological: Mental Status: She is alert. Assessment and Plan ASSESSMENT/PLAN: 1. Sore throat - ICD9: 462, ICD10: J02.9 - Rapid Strep negative in the office today - Discussed supportive care treatment with fluids, rest and analgesia. - The patient may also use OTC decongestants prn, OTC cough and cold meds as needed, warm salt water gargles, throat lozenges and/or OTC throat spray as needed, and nasal saline gtts and suction prn. - The patient should follow up in 3-5 days if symptoms persist or worsen - ALERE STREP A TEST (AG) Thao Bowling APRN.TIAGO Medical Decision Making: Problems: Low: Acute, uncomplicated illness or injury Data: Unique test(s) ordered: 1 Risk: Low: Low risk from testing/treatment Medical Decision Making Level: 3 - Low [facility] 01-03-2023 History of Present illness Narrative This note was created using Talkspaceriter. Subjective Rosi Singleton is a 32 year old female. HPI right sided throat pain started yesterday. She states that it feels really dry, she has been drinking water and using cough drops but that is not helping. She also states that last week she was having right index finger pain, then this week her right upper arm started to hurt and now the right side of her throat is. Denies any fever/chills or N/V. Review of Systems HENT: Positive for sore throat. Musculoskeletal: Right upper arm discomfort Objective BP 110/66 Pulse 97 Temp 36.5 C (97.7 F) Resp 16 Wt 59.4 kg (131 lb) LMP 03/21/2019 (Approximate) SpO2 98% BMI 22.49 kg/m Physical Exam HENT: Mouth/Throat: Mouth: Mucous membranes are moist. Pharynx: Posterior oropharyngeal erythema (right side) present. Pulmonary: Effort: Pulmonary effort is normal. Neurological: Mental Status: She is alert. Assessment and Plan ASSESSMENT/PLAN: 1. Sore throat - ICD9: 462, ICD10: J02.9 - Rapid Strep negative in the office today - Discussed supportive care treatment with fluids, rest and analgesia. - The patient may also use OTC decongestants prn, OTC cough and cold meds as needed, warm salt water gargles, throat lozenges and/or OTC throat spray as needed, and nasal saline gtts and suction prn. - The patient should follow up in 3-5 days if symptoms persist or worsen - ALERE STREP A TEST (AG) Thao Bowling APRN.CNP Medical Decision Making: Problems: Low: Acute, uncomplicated illness or injury Data: Unique test(s) ordered: 1 Risk: Low: Low risk from testing/treatment Medical Decision Making Level: 3 - Low documented in this encounter [facility] 11-18-2022 Note HNO ID: [id number] Author: Michelle Martines PA-C Service: ? Author Type: Physician Urgent Care Nurse Practitioner Type: Progress Notes Filed: 11/18/2022 2:01 PM Note Text: 11/18/2022 Patient presents with: Rash: right inner elbow x 5 days, itching and burning SUBJECTIVE: This is a 32 year old that is here today for Complaint(s) of rash on inner elbow x 5 days. Area is itching and burning at times. Tried OTC topical antihistamine without improvement. A child did try to bite her just above area and left some bruising, but did not penetrate the skin. Nonew exposure. No history of eczema or psoriasis. No other areas of rash. Denies fever/chills. PAST MEDICAL HISTORY Diagnosis Date Anemia Fractured bone RIGHT WRIST Gestational thrombocytopenia (HCC) 05/01/2011 Ovarian cyst 2019 ALLERGIES Patient has no known allergies. MEDICATIONS Current Outpatient Medications Medication Sig mupirocin (BACTROBAN) 2 % ointment Apply to affected area three times daily. triamcinolone acetonide (KENALOG) 0.1 % cream Apply 1 application to affected area three times daily. Apply sparingly to area for rash/itching. predniSONE (DELTASONE) 10 mg tablet Take 4 tabs daily for 3 days, then 2 tabs daily for 3 days, then 1 tab daily for 3 days with food. (Patient not taking: Reported on 06/14/2022) Current Facility-Administered Medications Medication Dose Route Frequency perflutren lipid microspheres 1.3 mL in NaCl (PF) 0.9% 10 mL injection (DEFINITY) INTRAVENOUS DIRECTED PRN sodium chloride 0.9 % (flush) 10 mL (BD POSIFLUSH) 10 mL INTRAVENOUS DIRECTED PRN SOCIAL HISTORY Social History Tobacco Use Smoking status: Never Smokeless tobacco: Never Vaping Use Vaping Use: Never used Substance Use Topics Alcohol use: No Drug use: No REVIEW OF SYSTEMS See HPI OBJECTIVE: BP 122/70 Pulse 92 Temp 37 ?C (98.6 ?F) Resp 16 Wt 59.9 kg (132 lb) LMP 03/21/2019 (Approximate) SpO2 98% BMI 22.66 kg/m? APPEARANCE Well appearing, alert, in no acute distress, well-hydrated, well nourished. SKIN slightly raised erythematous papular rash with a few satellite lesions. Slightly warm, no TTP. No vesicular lesions. No central clearing. No bite caballero penetrating skin. Small area of ecchymosis. ASSESSMENT/PLAN: 1. Rash - ICD9: 782.1, ICD10: R21 Possible contact dermatitis, cover with bactroban F/u in 5-7 days if not improving, sooner if worsening Reviewed red flags and when to seek care sooner. Hold on oral antibiotics. Bite did not penetrate skin. - MUPIROCIN 2 % TOPICAL OINTMENT - TRIAMCINOLONE ACETONIDE 0.1 % TOPICAL CREAM The patient indicates understanding of these issues and agrees with the plan. 11/18/2022 Michelle Martines PA-C [facility] 06-14-2022 Note HNO ID: [id number] Author: Rabia Dumont PA-C Service: ? Author Type: Physician Urgent Care Nurse Practitioner Type: Progress Notes Filed: 06/14/2022 11:14 AM Note Text: This note was created using [employer]pacer[employer]. Subjective Rosi Singleton is a 32 year old female. HPI Presents with postnasal drip, congestion in the back of the throat over the past month. Her ear started bothering her the past 2 days. The left worse than the right. She put some [id number] drops in the left ear but they still feel plugged. She denies fever or chills. No cough. No sinus pain or pressure. No other OTC meds used. Review of Systems Constitutional: Negative. HENT: Positive for ear pain and postnasal drip. Negative for ear discharge, sinus pressure and sinus pain. Respiratory: Negative. Cardiovascular: Negative. Gastrointestinal: Negative. Genitourinary: Negative. Musculoskeletal: Negative. All other systems reviewed and are negative. PAST MEDICAL HISTORY Diagnosis Date Anemia Fractured bone RIGHT WRIST Gestational thrombocytopenia (HCC) 05/01/2011 Ovarian cyst 2019 Current Outpatient Medications Medication Sig Dispense Refill ofloxacin (FLOXIN) 0.3 % otic solution Use 10 Drops in the left ear once daily for 7 days. 10 mL 0 cetirizine (ZYRTEC) 10 mg tablet Take 1 tablet by mouth once daily. 30 tablet 0 fluticasone (FLONASE) 50 mcg/actuation nasal spray Use 2 Sprays in each nostril once daily for 7 days. Rinse mouth after use. 1 Each 0 predniSONE (DELTASONE) 10 mg tablet Take 4 tabs daily for 3 days, then 2 tabs daily for 3 days, then 1 tab daily for 3 days with food. (Patient not taking: Reported on 06/14/2022) 21 tablet 0 Current Facility-Administered Medications Medication Dose Route Frequency Provider Last Rate Last Admin perflutren lipid microspheres 1.3 mL in NaCl (PF) 0.9% 10 mL injection (DEFINITY) INTRAVENOUS DIRECTED PRN Ursula Older, LEGAL OFFICE ADMINISTRATOR.DENTISTRY PROFESSOR sodium chloride 0.9 % (flush) 10 mL (BD POSIFLUSH) 10 mL INTRAVENOUS DIRECTED PRN Ursula Older, LEGAL OFFICE ADMINISTRATOR.DENTISTRY PROFESSOR PAST SURGICAL HISTORY Procedure Laterality Date NONE FAMILY HISTORY Problem Relation Age of Onset No Known Problems Father No Known Problems Brother No Known Problems Brother Cancer Paternal Grandfather Heart Attack Paternal Grandfather No Known Problems Mother No Known Problems Half-sister Diabetes Daughter No Known Problems Daughter Social History Tobacco Use Smoking status: Never Smokeless tobacco: Never Vaping Use Vaping Use: Never used Substance Use Topics Alcohol use: No Drug use: No Objective BP 110/62 Pulse 81 Temp (!) 35.8 ?C (96.5 ?F) Resp 18 Wt 60.1 kg (132 lb 6.4 oz) LMP 03/21/2019 (Approximate) SpO2 98% BMI 22.73 kg/m? Physical Exam Vitals reviewed. Constitutional: Appearance: Normal appearance. HENT: Head: Normocephalic and atraumatic. Right Ear: Tympanic membrane, ear canal and external ear normal. Left Ear: External ear normal. Ears: Comments: Erythema and mild swelling of the left EAC. TM intact, no middle ear effusion visualized. Nose: Nose normal. Mouth/Throat: Mouth: Mucous membranes are moist. Pharynx: Oropharynx is clear. Cardiovascular: Rate and Rhythm: Normal rate and regular rhythm. Heart sounds: Normal heart sounds. Pulmonary: Effort: Pulmonary effort is normal. Breath sounds: Normal breath sounds. Musculoskeletal: Cervical back: Neck supple. Skin: General: Skin is warm and dry. Neurological: Mental Status: She is alert. Assessment and Plan ASSESSMENT/PLAN: 1. Acute otitis externa of left ear, unspecified type - ICD9: 380.10, ICD10: H60.502 (primary diagnosis) Ofloxacin drops sent. 2. Post-nasal drip - ICD9: 784.91, ICD10: R09.82 Flonase and Zyrtec prescription sent. If not improving follow-up with PCP. Rabia Dumont PA-C [facility] 06-14-2022 History of Present illness Narrative This note was created using AYLIENter. Subjective Rosi Singleton is a 32 year old female. HPI Presents with postnasal drip, congestion in the back of the throat over the past month. Her ear started bothering her the past 2 days. The left worse than the right. She put some [id number] drops in the left ear but they still feel plugged. She denies fever or chills. No cough. No sinus pain or pressure. No other OTC meds used. Review of Systems Constitutional: Negative. HENT: Positive for ear pain and postnasal drip. Negative for ear discharge, sinus pressure and sinus pain. Respiratory: Negative. Cardiovascular: Negative. Gastrointestinal: Negative. Genitourinary: Negative. Musculoskeletal: Negative. All other systems reviewed and are negative. PAST MEDICAL HISTORY Diagnosis Date Anemia Fractured bone RIGHT WRIST Gestational thrombocytopenia (HCC) 05/01/2011 Ovarian cyst 2019 Current Outpatient Medications Medication Sig Dispense Refill ofloxacin (FLOXIN) 0.3 % otic solution Use 10 Drops in the left ear once daily for 7 days. 10 mL 0 cetirizine (ZYRTEC) 10 mg tablet Take 1 tablet by mouth once daily. 30 tablet 0 fluticasone (FLONASE) 50 mcg/actuation nasal spray Use 2 Sprays in each nostril once daily for 7 days. Rinse mouth after use. 1 Each 0 predniSONE (DELTASONE) 10 mg tablet Take 4 tabs daily for 3 days, then 2 tabs daily for 3 days, then 1 tab daily for 3 days with food. (Patient not taking: Reported on 06/14/2022) 21 tablet 0 Current Facility-Administered Medications Medication Dose Route Frequency Provider Last Rate Last Admin perflutren lipid microspheres 1.3 mL in NaCl (PF) 0.9% 10 mL injection (DEFINITY) INTRAVENOUS DIRECTED PRN Ursula Older, LEGAL OFFICE ADMINISTRATOR.DENTISTRY PROFESSOR sodium chloride 0.9 % (flush) 10 mL (BD POSIFLUSH) 10 mL INTRAVENOUS DIRECTED PRN Ursula Older, LEGAL OFFICE ADMINISTRATOR.DENTISTRY PROFESSOR PAST SURGICAL HISTORY Procedure Laterality Date NONE FAMILY HISTORY Problem Relation Age of Onset No Known Problems Father No Known Problems Brother No Known Problems Brother Cancer Paternal Grandfather Heart Attack Paternal Grandfather No Known Problems Mother No Known Problems Half-sister Diabetes Daughter No Known Problems Daughter Social History Tobacco Use Smoking status: Never Smokeless tobacco: Never Vaping Use Vaping Use: Never used Substance Use Topics Alcohol use: No Drug use: No Objective BP 110/62 Pulse 81 Temp (!) 35.8 C (96.5 F) Resp 18 Wt 60.1 kg (132 lb 6.4 oz) LMP 03/21/2019 (Approximate) SpO2 98% BMI 22.73 kg/m Physical Exam Vitals reviewed. Constitutional: Appearance: Normal appearance. HENT: Head: Normocephalic and atraumatic. Right Ear: Tympanic membrane, ear canal and external ear normal. Left Ear: External ear normal. Ears: Comments: Erythema and mild swelling of the left EAC. TM intact, no middle ear effusion visualized. Nose: Nose normal. Mouth/Throat: Mouth: Mucous membranes are moist. Pharynx: Oropharynx is clear. Cardiovascular: Rate and Rhythm: Normal rate and regular rhythm. Heart sounds: Normal heart sounds. Pulmonary: Effort: Pulmonary effort is normal. Breath sounds: Normal breath sounds. Musculoskeletal: Cervical back: Neck supple. Skin: General: Skin is warm and dry. Neurological: Mental Status: She is alert. Assessment and Plan ASSESSMENT/PLAN: 1. Acute otitis externa of left ear, unspecified type - ICD9: 380.10, ICD10: H60.502 (primary diagnosis) Ofloxacin drops sent. 2. Post-nasal drip - ICD9: 784.91, ICD10: R09.82 Flonase and Zyrtec prescription sent. If not improving follow-up with PCP. Rabia Dumont PA-C documented in this encounter [facility] 12-14-2021 Instructions Dixie Tovar APRN.[facility] - 12/14/2021 12:57 PM EDT [facility] PATIENT INFO PHARYNGITIS OVERVIEW A sore throat (pharyngitis) is a common problem, and usually is caused by a viral or bacterial infection. Sore throat usually resolves on its own without complications in adults, although it is important to know when to seek medical attention. Viruses can cause a sore throat and other upper respiratory infections, such as the common cold. Sore throat caused by a virus is not treated with antibiotics, but instead may be treated with rest, pain medication, and other therapies aimed at relieving symptoms. Strep throat is a particular kind of pharyngitis that is caused by a bacterium known as group A streptococcus (GAS). Strep throat is treated with a course of antibiotics. SORE THROAT SYMPTOMS Viral pharyngitis -- Most people with a sore throat have a virus. The most common viruses are those that cause upper respiratory infections, such as the common cold. Symptoms of a viral infection can include: A runny or congested nose Irritation or redness of the eyes Cough, hoarseness, or soreness in the roof of the mouth Some viruses cause a fever and can make you feel quite ill. Strep throat -- Approximately 10 percent of adults with a sore throat have strep throat. Signs and symptoms of strep throat include the following: Pain in the throat Fever (temperature greater than 100.4 F or 38 C) Enlarged lymph glands in the neck White patches of pus on the side or back of the throat No cough, runny nose, or irritation/redness of the eyes Other infections -- Many other less common but more serious infections can cause a sore throat, including mononucleosis (mono), influenza (the flu), N. gonococcus (gonorrhea), human immunodeficiency virus (HIV), and others. When to seek urgent help -- See your doctor or nurse immediately if you have a sore throat along with any of the following: Difficulty breathing Skin rash Drooling because you cannot swallow Swelling of the neck or tongue Stiff neck or difficulty opening the mouth SORE THROAT DIAGNOSIS Most people with a sore throat get better without treatment. There is no specific treatment for a sore throat caused by usual cold viruses. Is it strep or not? -- A combination of symptoms (fever, enlarged glands in the neck, white patches on your tonsils, and no cough) can help in determining if you have strep. If you have two or more symptoms, a rapid test or throat culture may be done. People with fewer than two symptoms usually do not need testing or treatment for strep throat. Rapid test -- The rapid test determines if there are streptococcus bacteria on a throat swab. The test can be done in a clinician's office and the results are available within a few minutes. The test is accurate in most cases, although a small percentage of tests are falsely negative (the bacteria are present but the test is negative). Throat culture -- A throat culture involves swabbing the throat, sending the swab to a laboratory, and waiting 24 to 48 hours for the results. Throat cultures are slightly more accurate than the rapid test. TREATMENT OF SORE THROAT Sore throat treatment -- Antibiotics do not help throat pain caused by a virus and are not recommended. Sore throat caused by viral infections usually lasts four to five days. During this time, treatments to reduce pain may be helpful. Several therapies can help to relieve throat pain. Pain medication -- You can treat your throat pain with a mild pain reliever such as acetaminophen (Tylenol ) or a non-steroidal anti-inflammatory agent such as ibuprofen or naproxen (Motrin or Aleve ). Oral rinses -- Salt-water gargles are an old stand-by for throat pain. It is not clear that salt water works to relieve pain, but it is unlikely to be harmful. Most recipes suggest 1/4 to 1/2 teaspoon of salt per one cup (8 ounces) of warm water. Sprays -- Sprays containing topical anesthetics (eg, benzocaine, phenol) are available to treat sore throat. However, such sprays are no more effective than sucking on hard candy. Lozenges -- A variety of lozenges (cough drops) are available to treat throat pain or relieve dryness. However, it is not clear that lozenges work any better than other forms of hard candy, which are generally less expensive. Other treatments -- Other treatments that may help with throat pain include sipping warm beverages (eg, honey or lemon tea, chicken soup), cold beverages, or eating cold or frozen desserts (eg, ice cream, popsicles). Alternative therapies -- [employer] food stores, vitamin outlets, and Internet Web sites offer alternative treatments for relief of sore throat pain. We do not recommend these type of treatments due to the risks of contamination with pesticides/herbicides, inaccurate labeling and dosing information, and a lack of studies showing that these treatments are safe and effective. Strep throat -- Although strep throat typically resolves on its own within two to five days, treatment with antibiotics is recommended for adults whose rapid test or throat culture is positive for strep throat. Penicillin, or an antibiotic related to penicillin, is the treatment of choice for strep throat. It is usually given in pill or liquid form two to four times per day for 10 days. A one time injection of penicillin is also available. People who are allergic to penicillin are given an alternate antibiotic. It is important to finish the entire course of treatment to completely eliminate the infection. If symptoms do not begin to improve or worsen by three days of antibiotic treatment, you should see your doctor or nurse again. Return to work/school -- If you have been diagnosed with strep throat, stay home from work or school until you have completed 24 hours of antibiotics. Within 24 hours of beginning antibiotic treatment, you will feel better and will be less contagious [1]. If you have a sore throat (not diagnosed as strep), you may participate in your usual activities as soon as you feel well. SORE THROAT PREVENTION Hand washing is an essential and highly effective way to prevent the spread of infection. Wet your hands with water and plain soap, and rub them together for 15 to 30 seconds. Pay special attention to the fingernails, between the fingers, and the wrists. Rinse your hands thoroughly, and dry them with a clean towel. Alcohol-based hand rubs are a good alternative for disinfecting hands if a sink is not available. Hand rubs should be spread over the entire surface of hands, fingers, and wrists until dry, and may be used several times. These rubs can be used repeatedly without skin irritation or loss of effectiveness. Hand rubs are available as a liquid or wipe in small, portable sizes that are easy to carry in a pocket or handbag. When a sink is available, visibly soiled hands should be washed with soap and water. Wash your hands after coughing, blowing the nose, or sneezing. While it is not always possible to avoid being near a person who is sick, avoiding touching your eyes, nose, or mouth to prevent the spread of infection. In addition, tissues should be used to cover the mouth when sneezing or coughing. These used tissues should be disposed of promptly. Sneezing/coughing into your sleeve (at the inner elbow) is another way to contain sprays of saliva and secretions and will not contaminate your hand documented in this encounter [facility] 12-14-2021 History of Present illness Narrative This note was created using [employer]YLI[employer]ter. Subjective Rosi Singleton is a 31 year old female. 31 year old female Acute onset yesterday +sore throat Scratchy Has utilized cough drops Denies fever or chills. 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 The history is provided by the patient. No speech language specialist was used. Sore Throat This is a new problem. The current episode started yesterday. The problem has been unchanged. Neither side of throat is experiencing more pain than the other. There has been no fever. The pain is at a severity of 4/10. The pain is mild. Pertinent negatives include no abdominal pain, congestion, coughing, diarrhea, drooling, ear discharge, ear pain, headaches, hoarse voice, plugged ear sensation, neck pain, shortness of breath, stridor, swollen glands, trouble swallowing or vomiting. She has had no exposure to strep or mono. Treatments tried: cough drops. The treatment provided no relief. PAST MEDICAL HISTORY Diagnosis Date Anemia Fractured bone RIGHT WRIST Gestational thrombocytopenia (HCC) 05/01/2011 Ovarian cyst 2019 PAST SURGICAL HISTORY Procedure Laterality Date NONE ALLERGIES Patient has no known allergies. MEDICATIONS predniSONE (DELTASONE) 10 mg tablet^Take 4 tabs daily for 3 days, then 2 tabs daily for 3 days, then 1 tab daily for 3 days with food.^Disp: 21 tablet^Rfl: 0 FAMILY HISTORY Problem Relation Age of Onset No Known Problems Father No Known Problems Brother No Known Problems Brother Cancer Paternal Grandfather Heart Attack Paternal Grandfather No Known Problems Mother No Known Problems Half-sister Diabetes Daughter No Known Problems Daughter Social History Tobacco Use Smoking status: Never Smokeless tobacco: Never Vaping Use Vaping Use: Never used Substance Use Topics Alcohol use: No Drug use: No Review of Systems Constitutional: Negative for activity change, appetite change, chills, diaphoresis, fatigue and fever. HENT: Positive for sore throat. Negative for congestion, drooling, ear discharge, ear pain, hoarse voice, postnasal drip, rhinorrhea, sinus pressure, sinus pain and trouble swallowing. Eyes: Negative for pain, discharge, redness and itching. Respiratory: Negative for cough, shortness of breath and stridor. Cardiovascular: Negative for chest pain, palpitations and leg swelling. Gastrointestinal: Negative for abdominal pain, diarrhea and vomiting. Musculoskeletal: Negative for arthralgias, back pain, gait problem and neck pain. Skin: Negative for color change, pallor, rash and wound. Allergic/Immunologic: Negative for environmental allergies, food allergies and immunocompromised state. Neurological: Negative for dizziness, facial asymmetry and headaches. Hematological: Negative for adenopathy. Does not bruise/bleed easily. Psychiatric/Behavioral: Negative for agitation and behavioral problems. Objective BP 128/80 Pulse 97 Temp 37.3 C (99.1 F) (Tympanic) Resp 16 Wt 58.5 kg (129 lb) LMP 03/21/2019 (Approximate) SpO2 99% BMI 22.14 kg/m Physical Exam Vitals and nursing note reviewed. Constitutional: General: She is not in acute distress. Appearance: Normal appearance. She is normal weight. She is not ill-appearing, toxic-appearing or diaphoretic. HENT: Head: Normocephalic and atraumatic. Right Ear: Ear canal and external ear normal. Left Ear: Ear canal and external ear normal. Nose: Nose normal. No congestion or rhinorrhea. Mouth/Throat: Mouth: Mucous membranes are moist. Pharynx: Posterior oropharyngeal erythema (posterior marked erythema. Uvula midline. Handling secretions) present. No oropharyngeal exudate. Eyes: General: Right eye: No discharge. Left eye: No discharge. Extraocular Movements: Extraocular movements intact. Conjunctiva/sclera: Conjunctivae normal. Pupils: Pupils are equal, round, and reactive to light. Cardiovascular: Rate and Rhythm: Normal rate and regular rhythm. Pulses: Normal pulses. Heart sounds: Normal heart sounds. No murmur heard. No friction rub. Pulmonary: Effort: Pulmonary effort is normal. No respiratory distress. Breath sounds: Normal breath sounds. No stridor. No wheezing, rhonchi or rales. Chest: Chest wall: No tenderness. Abdominal: General: Abdomen is flat. There is no distension. Palpations: Abdomen is soft. There is no mass. Tenderness: There is no abdominal tenderness. There is no right CVA tenderness, left CVA tenderness, guarding or rebound. Hernia: No hernia is present. Musculoskeletal: General: No swelling, tenderness, deformity or signs of injury. Normal range of motion. Cervical back: Normal range of motion and neck supple. No rigidity. Right lower leg: No edema. Left lower leg: No edema. Lymphadenopathy: Cervical: No cervical adenopathy. Skin: General: Skin is warm and dry. Capillary Refill: Capillary refill takes less than 2 seconds. Coloration: Skin is not jaundiced or pale. Findings: No bruising, erythema, lesion or rash. Neurological: General: No focal deficit present. Mental Status: She is alert and oriented to person, place, and time. Cranial Nerves: No cranial nerve deficit. Sensory: No sensory deficit. Motor: No weakness. Coordination: Coordination normal. Gait: Gait normal. Psychiatric: Mood and Affect: Mood normal. Behavior: Behavior normal. Thought Content: Thought content normal. Judgment: Judgment normal. Assessment and Plan ASSESSMENT/PLAN: 1. Pharyngitis, unspecified etiology - ICD9: 462, ICD10: J02.9 - suspect viral - Alere Strep Test NEGATIVE , no culture pending - Discussed supportive care treatment with fluids, rest and analgesia. - The patient may also use OTC cough and cold meds as needed, warm salt water gargles, throat lozenges and/or OTC throat spray as needed, nasal saline gtts and suction prn, and RX Prednisone provided . - Contagious dz precautions discussed- including considered contagious until on antibiotics for 24 hours - The patient should follow up in 3-5 days if symptoms persist or worsen - Call back if drooling, increased temperature, symptoms of dehydration and/or still sick in one week - STREP A MOLECULAR (POC) Declines COVID testing Dixie Tovar APRN.[facility] documented in this encounter [facility] 10-30-2021 Nurse Note EVENT MONITOR DISPOSABLE PATCH INSTRUCTIONS Patient Name: Rosi Singleton Clinic Number: [id number] Skin prepped and cleansed with alcohol Patch secured to prepped area Monitor Activated Serial #: [id number] Patient Instructed: Prescribed order timeframe Bathing guidelines Usage of event button and diary documentation Return of monitor at the end of prescribed order Call with problems [phone] or [phone] ext. [phone] Patient expresses a good understanding of instructions Dylan Umanzor Ma documented in this encounter [facility] 10-30-2021 History of Present illness Narrative CC: Patient presents with: Physical: Form for work HPI Rosi Singleton is a 31 year old female who presents today for above. 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 Patient is tachycardic today. This is a chronic issue for the past two years. Patient reports heart rate is anywhere from 100-150's. She only checks her rate when she feels it racing. Unsure how often this occurs, yesterday it was 150. Lasting less than 1-2 minutes. Episodes occur at rest. Occasionally with heavy exertion but not often. Denies any associated symptoms including dizziness, lightheadedness, syncope, feeling faint, chest pain/pressure, SOB. Does not drink caffeine or alcohol. Non-smoker. No personal history of heart disease. She had a syncopal event at work a couple years ago. Evaluated in ER, thinks she had an EKG but unsure. She was evaluated for tachycardia in this office two years with labs that were essentially unremarkable. REVIEW OF SYSTEMS General: no fevers, no chills, no night sweats, no change in appetite, no change in energy, and no significant changes in weight HEENT: occasional white floaters. Has never been evaluated by ophthalmology. no frequent or significant headaches, no changes in hearing Neck: no lumps, no pain , and no swelling Respiratory: no cough, no wheezing, no shortness of breath Cardiovascular: no swelling, no decrease in exercise tolerance, and See HPI GI: Negative for abdominal discomfort, blood in stools or black stools, change in bowel habit, diarrhea, heart burn, nausea, vomiting, problem swallowing : Negative for dysuria, frequency, incontinence, hesitancy, and nocturia >1 Musculoskeletal: Negative for joint pain or swelling, back pain or muscle pain Skin: Negative for lesions, rash, and itching Psych: Negative for sleep disturbance, mood disorder and recent psychosocial stressors Hematologic/Lymph: Negative for prolonged bleeding, bruising easily or swollen nodes Endocrine: no hair loss, no dry skin, no cold intolerance, no heat intolerance, menstrual cycles being irregular, no polyuria, no polyphagia, and no polydipsia PAST MEDICAL HISTORY Diagnosis Date Anemia Fractured bone RIGHT WRIST Gestational thrombocytopenia (HCC) 05/01/2011 Ovarian cyst 2019 PAST SURGICAL HISTORY Procedure Laterality Date NONE ALLERGIES Patient has no known allergies. MEDICATIONS Norethindrone Acet-Ethinyl Est (,) 1-20 mg-mcg per tablet Take 1 tablet by mouth once daily. cyclobenzaprine (FLEXERIL) 10 mg tablet Take 1 tablet by mouth three times daily as needed for Muscle Spasm. (Patient not taking: Reported on 04/15/2019 ) benzonatate (TESSALON PERLE) 100 mg capsule Take 2 capsules by mouth three times daily as needed. (Patient not taking: Reported on 03/26/2019 ) fluticasone (FLONASE) 50 mcg/actuation nasal spray Use 2 Sprays in each nostril once daily. Rinse mouth after use. (Patient not taking: Reported on 03/26/2019 ) FAMILY HISTORY Problem Relation Age of Onset No Known Problems Father No Known Problems Brother No Known Problems Brother Cancer Paternal Grandfather Heart Attack Paternal Grandfather No Known Problems Mother No Known Problems Half-sister Diabetes Daughter No Known Problems Daughter Social History Tobacco Use Smoking status: Never Smokeless tobacco: Never Vaping Use Vaping Use: Never used Substance Use Topics Alcohol use: No Drug use: No PHYSICAL EXAM BP 122/72 Pulse 102 Resp 16 Ht 162.6 cm (5' 4 ) Wt 57.2 kg (126 lb) LMP 03/21/2019 (Approximate) BMI 21.63 kg/m General Appearance: well appearing, in no acute distress, alert Pysch: mood and affect broad and appropriate Skin: Skin color, texture, turgor normal for age; Eyes: PERRLA, conjunctiva pink and moist, no icterus, sclera white, non-injected Neck: Thyroid normal size and symmetric without palpable nodules, Neck supple, No adenopathy Lymph nodes: No supraclavicular lymphadenopathy Lungs: Lungs clear to auscultation. No wheezing, rhonchi, rales. Heart: RRR without murmur, gallop, or rubs. No ectopy Ext: no edema in LE bilaterally, good distal pulses Health maintenance reviewed with patient: HEPATITIS B(1 of 3 - 3-dose series) Never done HEPATITIS C SCREENING Never done HPV TESTING Never done COVID-19 VACCINE(1) due on 10/30/2022 INFLUENZA(1) due on 11/07/2021 DEPRESSION SCREENING due on 10/28/2022 PAP TESTING due on 04/15/2024 DTAP,TDAP,TD(2 - Td or Tdap) due on 10/24/2026 HIV SCREENING Completed DATA REVIEWED: Most recent labs ASSESSMENT/PLAN: 1. Palpitations - ICD9: 785.1, ICD10: R00.2 (primary diagnosis) Tachycardia and palpitations for a few years. Possibly due to anxiety. Patient has not had been evaluated for this other than routine blood work. ECG COMPLETE today normal sinus rhythm Work-up with: - CBC + DIFF - TSH BLD - COMP METABOLIC PANEL - OUTSIDE VENDOR CARDIAC OUTPATIENT EXTENDED RHYTHM RECORDING (WITHOUT TELEMETRY) - ECHO - PERFLUTREN LIPID MICROSPHERES 1.1 MG/ML INJECTION IN NS 10 ML - SODIUM CHLORIDE 0.9 % (FLUSH) INJECTION SYRINGE Follow-up pending results 2. Vitreous floaters, unspecified laterality - ICD9: 379.24, ICD10: H43.399 - CONSULT TO OPHTHALMOLOGY 3. Tachycardia - ICD9: 785.0, ICD10: R00.0 See #1 - ECG COMPLETE - CBC + DIFF - TSH BLD - COMP METABOLIC PANEL - OUTSIDE VENDOR CARDIAC OUTPATIENT EXTENDED RHYTHM RECORDING (WITHOUT TELEMETRY) - ECHO - PERFLUTREN LIPID MICROSPHERES 1.1 MG/ML INJECTION IN NS 10 ML - SODIUM CHLORIDE 0.9 % (FLUSH) INJECTION SYRINGE 4. 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 Form completed and returned to patient Prescription instructions reviewed with patient as applicable. Potential red flag symptoms discussed with the patient. Reviewed appropriate action plan to take if red flag symptoms occur. Patient agreeable to treatment plan. Ursula Britton APRN.CNP documented in this encounter [facility] documented as of this encounter (statuses as of 10/30/2021) [facility]02-23-2012 History of Past illness Narrative* Problem Noted Date Resolved Date Gestational thrombocytopenia 05/01/201112/2011 Anemia during 05/01/2011 06/17/19 12 Unspecified high-risk 05/01/2011 06/17/2011 documented as of this encounter (statuses as of 12/14/2021) [facility]02-[facility]-2012 History of Past illness Narrative* Problem Noted Date Resolved Date Gestational thrombocytopenia 05/01/201112/2011 Anemia during 05/01/2011 06/17/19 12 Unspecified high-risk 05/01/2011 06/17/2011 documented as of this encounter (statuses as of 06/14/2022) [facility]2012 History of Past illness Narrative* Problem Noted Date Diagnosed Date Resolved Date Gestational thrombocytopenia 05/01/2011 06/17/2011 Anemia during 05/01/201106/07 Unspecified high-risk 05/01/2011 06/17/2011 documented as of this encounter (statuses as of 01/03/2023) [facility] History of Past illness Narrative* Problem Noted Date Diagnosed Date Resolved Date Gestational thrombocytopenia 05/01/2011 06/17/2011 Anemia during 05/01/201106/07 Unspecified high-risk 05/01/2011 06/17/2011 documented as of this encounter (statuses as of 01/14/2023) [facility] note* Diagnosis Palpitations- Primary Vitreous floaters, unspecified laterality Tachycardia Tachycardia, unspecified Encounter for physical examination related to employment documented in this encounter [facility] note* Diagnosis Pharyngitis, unspecified etiology- Primary documented in this encounter [facility] note* Diagnosis Acute otitis externa of left ear, unspecified type- Primary Post-nasal drip Postnasal drip documented in this encounter [facility] note* Diagnosis Sore throat- Primary Acute pharyngitis documented in this encounter [facility] note* Diagnosis URI, acute- Primary Acute upper respiratory infections of unspecified site [facility] Outpatient Procedure (Routine) - Authorized Specialty Diagnoses / Procedures Referred By Yamileth mejias Referred To Contact [facility] Diagnoses Palpitations Tachycardia Procedures ECHO ECHO TTHRC R-T 2D W/WOM-MODE COMPL SPEC&COLR D Ursula Britton APRN.CNP [address] [place] [address] [facility] [address] [address] Referral ID Status Reason Start Date Expiration Date Visits Requested Visits Authorized [id number] Authorized Auto-Generat ed Referral 10/30/2021 10/30/2022 1 1 * Outpatient Procedure (Routine) - Closed Specialty Diagnoses / Procedures Referred By Yamileth mejias Referred To Contact [facility] Diagnoses Palpitations Tachycardia Procedures ECG COMPLETE ECG ROUTINE ECG W/LEAST 12 LDS W/I&R Ursula Britton APRN.CNP [address] [place] [address] [facility] [address] [place] [address] Referral ID Status Reason Start Date Expiration Date V isits Requested Visits Authorized [id number] Closed Auto-Generate d Referral 10/30/2021 10/30/2022 1 1 * Consult, Test, Treat (Routine) - Authorized Specialty Diagnoses / Procedures Referred By Yamileth mejias Referred To Contact Ophthalmology Diagnoses Vitreous floaters, unspecified laterality Procedures CONSULT TO OPHTHALMOLOGY OFFICE/OUTPATIENT NEW HIGH MDM 60-74 MINUTES Ursula Britton APRN.CNP [address] [place] [address] Referral ID Status Reason Start Date Expiration Date Visits Requested Visits Authorized [id number] Authorized PCP Requested Referral 10/30/2021 10/30/2022 1 1 [facility] Summary Purpose Family History No Family History Records Found Advance Directives No Advanced Directives Records Found Additional Source Comments Source Comments (unrecognize d section and content) In the event this informatio n is protected by the Federal Confidentiality of Alcohol and Drug Abuse Patient Records regulations: The Federal rules restrict any use of the information to criminally investigate or prosecute any alcohol or drug abuse patient.[facility] the event this information is protected by the Federal Confidentiality of Alcohol and Drug Abuse Patient Records regulations: The Federal rules restrict any use of the information to criminally investigate or prosecute any alcohol or drug abuse patient.[facility] the event this information is protected by the Federal Confidentiality of Alcohol and Drug Abuse Patient Records regulations: The Federal rules restrict any use of the information to criminally investigate or prosecute any alcohol or drug abuse patient.[facility] the event this information is protected by the Federal Confidentiality of Alcohol and Drug Abuse Patient Records regulations: The Federal rules restrict any use of the information to criminally investigate or prosecute any alcohol or drug abuse patient.[facility] the event this information is protected by the Federal Confidentiality of Alcohol and Drug Abuse Patient Records regulations: The Federal rules restrict any use of the information to criminally investigate or prosecute any alcohol or drug abuse patient.[facility] Reason for Visit (unrecogniz ed section and content) Reason Comments scratcy and swollen throat X 1 day Reason Comments Ear Pain Bilateral ear pain x 2 days, congestion and drainage x1 month Reason Comments Pain Right side of neck d own right arm, discomfort more than pain. Throat feels like its burning. 1 day Reason Comments drainage and loss of voice X 5 days INFORMATION SOURCE (unrecogn ized section and content) FOR RECORDS PERTAINING TO PATIENTS WHO ARE OR HAVE BEEN ENROLLED IN A CHEMICAL DEPENDENCY/SUBSTANCEABUSE PROGRAM, SOME INFORMATION MAY BE OMITTED. This clinical summary was aggregated from multiple sources. Caution should be exercised in using it in the provision of clinical care. This summary normalizes information from multiple sources, and as a consequence, information in this document may materially change the coding, format and clinical context of patient data. In addition, data may be omitted in some cases. CLINICAL DECISIONS SHOULD BE BASED ON THE PRIMARY CLINICAL RECORDS. [employer] [facility]. provides no warranty or guarantee of the accuracy or completeness of information in this document.
== END | disposition home or self-care (01) ==
LOC: US 16:17
PROVIDERS: Referring Provider Obstetrics & Gynecology; Visit Provider Obstetrics & Gynecology
DX: N93.9 Abnormal uterine and vaginal bleeding, unspecified (principal); D64.9 Anemia, unspecified
CPT/HCPCS: 76830; 76856

== ENCOUNTER → 2023-04-03 | Outpatient (CLI) | payer MEDICAID, SELFPAY ==
[2023-04-03 15:51] LABS: Absolute Lymphocyte Count 1.34 X10^3/uL (0.83-4.51); Absolute Neutrophil Count 2.7 X10^3/uL (2.0-7.7); Basophil# 0.03 X10^3/uL; Basophil% 0.6 % (0-1); Eosinophil# 0.05 X10^3/uL; Eosinophils% 1.1 % (0-5); Hematocrit 32.5 % (37-47); Hemoglobin 10.8 g/dL (12.0-15.0); Lymphocyte # 1.34 X10^3/ul (0.83-4.51); Lymphocyte % 28.3 % (19-41); Mean Corp Hgb Conc 33.2 g/dL (32-36); Mean Corpuscular Hgb 29.8 pg (27.0-32.0); Mean Corpuscular Volume 89.8 fL (81-99); Monocyte# 0.57 X10^3/uL; NRBC Flagged by Analyzer 0 % (0-5); Neutrophil # 2.74 X10^3/uL (2.7-7.7); Neutrophil % 57.8 % (47-70); Platelet Count 161 K/mm3 (150-450); RBC Distribution Width SD 39.2 fl (35.1-43.9); Red Blood Count 3.62 M/mm3 (4.2-5.4); White Blood Count 4.7 K/mm3 (4.4-11.0)
--- OUTSIDE RECORDS SUMMARY | 2023-04-03 15:53 | XMS RPT_ITS | CCD ---
Author Name Unknown Address [id number] [place] [address] Organization [facility] Care Team Providers Care Bale Breaker Operator Name Role Phone Unavailable Primary Care Provider [...] 19:11-0500 Body temperature 97.59 [degF] Domenic Guo SUBWAY TRAIN OPERATOR.OUTSIDE INSTALLATION MACHINIST Work Phone: [facility] 01-13-2023 19:11-0500 Body weight 59.33 kg Domenic Guo SUBWAY TRAIN OPERATOR.OUTSIDE INSTALLATION MACHINIST Work Phone: [facility] 01-13-2023 19:11-0500 Diastolic blood pressure 74 mm[Hg] Domenic Guo SUBWAY TRAIN OPERATOR.OUTSIDE INSTALLATION MACHINIST Work Phone: [facility] 01-13-2023 19:11-0500 Heart rate 82 /min Domenic Guo SUBWAY TRAIN OPERATOR.OUTSIDE INSTALLATION MACHINIST Work Phone: [facility] 01-13-2023 19:11-0500 Respiratory rate 18 /min Domenic Guo SUBWAY TRAIN OPERATOR.OUTSIDE INSTALLATION MACHINIST Work Phone: [facility] 01-13-2023 19:11-0500 SaO2% (BldA) [Mass fraction] 99 % Domenic Guo SUBWAY TRAIN OPERATOR.OUTSIDE INSTALLATION MACHINIST Work Phone: [facility] 01-13-2023 19:11-0500 Systolic blood pressure 110 mm[Hg] Domenic Guo SUBWAY TRAIN OPERATOR.OUTSIDE INSTALLATION MACHINIST Work Phone: [facility] 01-03-2023 09:37-0400 Body temperature 97.7 [degF] Thao Dash SUBWAY TRAIN OPERATOR.OUTSIDE INSTALLATION MACHINIST Work Phone: [facility] 01-03-2023 09:37-0400 Body weight 59.42 kg Thao Weston SUBWAY TRAIN OPERATOR.OUTSIDE INSTALLATION MACHINIST Work Phone: [facility] 01-03-2023 09:37-0400 Diastolic blood pressure 66 mm[Hg] Thao Weston SUBWAY TRAIN OPERATOR.OUTSIDE INSTALLATION MACHINIST Work Phone: [facility] 01-03-2023 09:37-0400 Heart rate 97 /min Thao Weston SUBWAY TRAIN OPERATOR.OUTSIDE INSTALLATION MACHINIST Work Phone: [facility] 01-03-2023 09:37-0400 Respiratory rate 16 /min Thao Dash SUBWAY TRAIN OPERATOR.OUTSIDE INSTALLATION MACHINIST Work Phone: [facility] 01-03-2023 09:37-0400 SaO2% (BldA) [Mass fraction] 98 % Thao Weston SUBWAY TRAIN OPERATOR.OUTSIDE INSTALLATION MACHINIST Work Phone: [facility] 01-03-2023 09:37-0400 Systolic blood pressure 110 mm[Hg] Thao Weston SUBWAY TRAIN OPERATOR.OUTSIDE INSTALLATION MACHINIST Work Phone: [facility] 06-14-2022 10:58-0400 Body temperature 96.49 [degF] Rabia Athy PA-C Work Phone: [facility] 06-14-2022 10:58-0400 Body weight 60.06 kg Rabia Athy PA-C Work Phone: [facility] 06-14-2022 10:58-0400 Diastolic blood pressure 62 mm[Hg] Rabia Athy PA-C Work Phone: [facility] 06-14-2022 10:58-0400 Heart rate 81 /min Rabia Athy PA-C Work Phone: [facility] 06-14-2022 10:58-0400 Respiratory rate 18 /min Rabia Athy PA-C Work Phone: [facility] 06-14-2022 10:58-0400 SaO2% (BldA) [Mass fraction] 98 % Rabia Athy PA-C Work Phone: [facility] 06-14-2022 10:58-0400 Systolic blood pressure 110 mm[Hg] Rabia Athy PA-C Work Phone: [facility] 12-14-2021 12:13-0400 Body temperature 99.1 [degF] Dixie Tovar SUBWAY TRAIN OPERATOR.OUTSIDE INSTALLATION MACHINIST Work Phone: [facility] 12-14-2021 12:13-0400 Body weight 58.51 kg Dixie Tovar SUBWAY TRAIN OPERATOR.OUTSIDE INSTALLATION MACHINIST Work Phone: [facility] 12-14-2021 12:13-0400 Diastolic blood pressure 80 mm[Hg] Dixie Tovar SUBWAY TRAIN OPERATOR.OUTSIDE INSTALLATION MACHINIST Work Phone: [facility] 12-14-2021 12:13-0400 Heart rate 97 /min Dixie Tovar SUBWAY TRAIN OPERATOR.OUTSIDE INSTALLATION MACHINIST Work Phone: [facility] 12-14-2021 12:13-0400 Respiratory rate 16 /min Dixie Tovar SUBWAY TRAIN OPERATOR.OUTSIDE INSTALLATION MACHINIST Work Phone: [facility] 12-14-2021 12:13-0400 SaO2% (BldA) [Mass fraction] 99 % Dixie Tovar SUBWAY TRAIN OPERATOR.OUTSIDE INSTALLATION MACHINIST Work Phone: [facility] 12-14-2021 12:13-0400 Systolic blood pressure 128 mm[Hg] Dixie Tovar SUBWAY TRAIN OPERATOR.OUTSIDE INSTALLATION MACHINIST Work Phone: [facility] 10-30-2021 11:24-0400 Body height 162.6 cm Ursula Older SUBWAY TRAIN OPERATOR.OUTSIDE INSTALLATION MACHINIST Work Phone: [facility] 10-30-2021 11:24-0400 Body weight 57.15 kg Ursula Older SUBWAY TRAIN OPERATOR.OUTSIDE INSTALLATION MACHINIST Work Phone: [facility] 10-30-2021 11:24-0400 Diastolic blood pressure 72 mm[Hg] Ursula Older SUBWAY TRAIN OPERATOR.OUTSIDE INSTALLATION MACHINIST Work Phone: [facility] 10-30-2021 11:24-0400 Heart rate 102 /min Ursula Older SUBWAY TRAIN OPERATOR.OUTSIDE INSTALLATION MACHINIST Work Phone: [facility] 10-30-2021 11:24-0400 Respiratory rate 16 /min Ursula Older SUBWAY TRAIN OPERATOR.OUTSIDE INSTALLATION MACHINIST Work Phone: [facility] 10-30-2021 11:24-0400 Systolic blood pressure 122 mm[Hg] Ursula Older SUBWAY TRAIN OPERATOR.OUTSIDE INSTALLATION MACHINIST Work Phone: [facility] Encounters Encounter Date Encounter Type Care Provider Facility Start: 01-13-2023 End: 01-13-2023 ambulatory Facility:[facility] Start: 01-13-2023 End: 01-13-2023 Patient encounter procedure Domenic Guo SUBWAY TRAIN OPERATOR.OUTSIDE INSTALLATION MACHINIST Work Phone: [facility] Procedures Date Procedure Procedure Detail Performing Clinician Start: 01-03-2023 STREP A MOLECULAR (POC) [facility] Provider Start: 12-14-2021 STREP A MOLECULAR (POC) Dixie Tovar SUBWAY TRAIN OPERATOR.OUTSIDE INSTALLATION MACHINIST Work Phone: Start: 10-30-2021 Ecg routine ecg w/le ast 12 lds w/i&r [facility] Provider Start: 10-28-2021 Adult depression screening assessment Ursula Older SUBWAY TRAIN OPERATOR.OUTSIDE INSTALLATION MACHINIST Work Phone: Plan of Treatment Date Care Activity Detail Author Start: 10-24-2026 Urine microalbumin profile [facility] Start: 04-15-2024 PAP TESTING PAP TESTING [facility] Start: 11-07-2022 Influenza vaccination [facility] Start: 10-30-2022 COVID-19 VACCINE (#1) COVID-19 VACCI NE (#1) [facility] Immunizations Immunization Date Immunization Notes Care Provider Fa cility 04-01-2019 influenza, injectabl e, quadrivalent, contains preservative Ursula Older SUBWAY TRAIN OPERATOR.OUTSIDE INSTALLATION MACHINIST Work Phone: [facility] 04-01-2019 influenza virus vaccine, unspecified formulation Thao Weston SUBWAY TRAIN OPERATOR.OUTSIDE INSTALLATION MACHINIST Work Phone: [facility] 10-24-2016 tetanus toxoid, redu noemy diphtheria toxoid, and acellular pertussis vaccine, adsorbed Ursula Older SUBWAY TRAIN OPERATOR.OUTSIDE INSTALLATION MACHINIST Work Phone: [facility] 12-19-2013 influenza, seasonal, injectable Ursula Older SUBWAY TRAIN OPERATOR.OUTSIDE INSTALLATION MACHINIST Work Phone: [facility] Work Phone: 01-02-2011 influenza virus vaccine, unspecified formulation Ursula Older SUBWAY TRAIN OPERATOR.OUTSIDE INSTALLATION MACHINIST Work Phone: [facility] Payers Date Payer Category Payer Medicaid [id number] 2022 Medicaid [id number] 2012 Medicaid [id number] Social History Date Type Detail Facility Start: 10-30-2021 Tobacco smoking status NHIS Never smoked tobacco [facility] Start: 10-30-2021 Tobacco use and exposure Smokeless tobacco non-user [facility] Start: 10-30-2021 End: 01-13-2023 Alcohol intake Current non-drinker of alcohol (finding) [facility] Start: 10-29-2021 History SDOH Alcohol Frequency 2 [facility] Start: 10-29-2021 History SDOH Alcohol Std Drinks 1 [facility] Start: 10-29-2021 History SDOH Social Connections Phone 5 [facility] Start: 10-29-2021 History SDOH Social Connections [employer] 3 [facility] Start: 10-29-2021 History SDOH Social Connections Living 7 [facility] Start: 10-29-2021 History SDOH Physical Activity MPS 98 [facility] Start: 10-29-2021 History SDOH Financial 4 [facility] Start: 1990 Sex Assigned At Not on file [facility] Start: 10-12-2021 End: 10-22-2021 Exposure to SARS-CoV-2 (event) Not sure [facility] Work Phone: Start: 10-28-2021 End: 04-04-2022 History of Social function [facility] Start: 10-28-2021 End: 04-04-2022 Social connection and isolation panel [facility] Do you belong to any clubs or organizations such as faith groups, unions, fraternal or athletic groups, or school groups? No [facility] Are you now , , , , never or living with a partner? Never [facility] How often to you hav e a drink containing alcohol? Monthly or less [facility] How many standard dr inks containing alcohol do you have on a typical day? 1 or 2 [facility] How often do you hav e 6 or more drinks on 1 occasion? Never [facility] How hard is it for y ou to pay for the very basics like food, housing, medical care, and heating Not very hard [facility] Adult Depression Screening Assessment 0 [facility] Do you feel stress - tense, restless, nervous, or anxious, or unable to sleep at night because your mind is troubled all the time - these days [OSQ] Not at all [facility] (I/We) worried wheth er (my/our) food would run out before (I/we) got money to buy more. Never true [facility] Start: 04-01-2019 Gender identity Identifies as female gender (finding) [facility] Work Phone: Start: 04-01-2019 Sexual orientation Heterosexual (finding) [facility] Work Phone: Clinical Notes 05-01-2011 to 01-13-2023 Domenic Guo APRN.OUTSIDE INSTALLATION MACHINIST - 01/13/2023 7:16 PM Thao Lan APRN.OUTSIDE INSTALLATION MACHINIST - 01/03/2023 9:40 AM EDTCjose daniel Dumont PA-C - 06/14/2022 11:12 AM EDTPatijuan Umanzor Ut - 10/30/2021 12:54 PM EDT Note Date & Type Note Facility 01-13-2023 Note HNO ID: [id number] Author: Domenic Guo APRN.OUTSIDE INSTALLATION MACHINIST Service: ? Author Type: Nurse Practitioner Type: [...] PREDNISONE 20 MG TABLET Domenic Guo APRN.TIAGO [facility] 01-13-2023 History of Present illness [...] NASAL SPRAY,SUSPENSION - PREDNISONE 20 MG TABLET Domneic Guo APRN.OUTSIDE INSTALLATION MACHINIST documented in this encounter [facility] 01-03-2023 Note HNO ID: [id number] Author: Thao Bowling APRN.OUTSIDE INSTALLATION MACHINIST Service: ? Author Type: Nurse Practitioner Type: Progress Notes Filed: 01/03/2023 10:18 AM Note Text: This note was created using Spotieriter. Subjective Rosi Singleton is a 32 year [...] Medical Decision Making Level: 3 - Low [facility] 01-03-2023 History of Present illness Narrative This note was created using Spotieriter. Subjective Rosi Singleton is a 32 year [...] 3 - Low documented in this encounter [facility] 11-18-2022 Note HNO ID: [id number] Author: Michelle Martines PA-C Service: ? Author Type: Physician Pattern Chain Maker Supervisor Type: Progress Notes Filed: 11/18/2022 2:01 PM [...] with the plan. 11/18/2022 Michelle Martines PA-C [facility] 06-14-2022 Note HNO ID: [id number] Author: Rabia Dumont PA-C Service: ? Author Type: Physician Pattern Chain Maker Supervisor Type: Progress Notes Filed: 06/14/2022 11:14 AM Note Text: This note was created using Spotieriter. Subjective Rosi Singleton is a 32 year old female. HPI Presents with postnasal drip, congestion in the back of the throat over the past month. Her ear started bothering her the past 2 days. The left worse than the right. She put some rziu-pfr-hzqjatv drops in the left ear but they [...] injection (DEFINITY) INTRAVENOUS DIRECTED PRN Ursula Older, SUBWAY TRAIN OPERATOR.OUTSIDE INSTALLATION MACHINIST sodium chloride 0.9 % (flush) 10 mL (BD POSIFLUSH) 10 mL INTRAVENOUS DIRECTED PRN Ursula Older, SUBWAY TRAIN OPERATOR.OUTSIDE INSTALLATION MACHINIST PAST SURGICAL HISTORY Procedure Laterality Date NONE [...] improving follow-up with PCP. Rabia Dumont PA-C [facility] 06-14-2022 History of Present illness Narrative This note was created using RSP Toolingter. Subjective Rosi Singleton is a 32 year old female. HPI Presents with postnasal drip, congestion in the back of the throat over the past month. Her ear started bothering her the past 2 days. The left worse than the right. She put some nmkr-yiv-xkefjhc drops in the left ear but they [...] injection (DEFINITY) INTRAVENOUS DIRECTED PRN Ursula Older, SUBWAY TRAIN OPERATOR.OUTSIDE INSTALLATION MACHINIST sodium chloride 0.9 % (flush) 10 mL (BD POSIFLUSH) 10 mL INTRAVENOUS DIRECTED PRN Ursula Older, SUBWAY TRAIN OPERATOR.OUTSIDE INSTALLATION MACHINIST PAST SURGICAL HISTORY Procedure Laterality Date NONE [...] Rabia Dumont PA-C documented in this encounter [facility] 12-14-2021 Instructions Dixie Tovar APRN.[facility] - 12/14/2021 12:57 PM EDT [facility] [...] (eg, ice cream, popsicles). Alternative therapies -- [employer] food stores, vitamin outlets, and Internet Web [...] contaminate your hand documented in this encounter [facility] 12-14-2021 History of Present illness Narrative This note was created using [employer]SP Toolingter. Subjective Rosi Singleton is a 31 year [...] history is provided by the patient. No entry writer was used. Sore Throat This is a [...] Dixie Tovar APRN.TIAGO documented in this encounter [facility] 10-30-2021 Nurse Note EVENT MONITOR DISPOSABLE PATCH INSTRUCTIONS Patient Name: Rosi Singleton Clinic Number: [id number] Skin prepped and cleansed with alcohol Patch secured to prepped area Monitor Activated Serial #: [id number] Patient Instructed: Prescribed order timeframe Bathing guidelines Usage of event button and diary documentation Return of monitor at the end of prescribed order Call with problems [phone] or [phone]. [phone] Patient expresses a good understanding of instructions Dylan Umanzor Ma documented in this encounter [facility] 10-30-2021 History of Present illness Narrative CC: Patient presents with: Physical: Form for work HPI Rosi Singleton is a 31 year old female who presents today for above. She needs form filled out for [place] [employer] clearing her to work [...] Ursula Britton APRN.CNP documented in this encounter [facility] documented as of this encounter (statuses as of 10/30/2021) [facility] History of Past illness Narrative* Problem Noted Date Resolved Date Gestational thrombocytopenia 05/01/201112/2011 Anemia during 05/01/2011 06/17/19 12 Unspecified high-risk 05/01/2011 06/17/2011 documented as of this encounter (statuses as of 12/14/2021) [facility] History of Past illness Narrative* Problem Noted Date Resolved Date Gestational thrombocytopenia 05/01/201112/2011 Anemia during 05/01/2011 06/17/19 12 Unspecified high-risk 05/01/2011 06/17/2011 documented as of this encounter (statuses as of 06/14/2022) [facility] History of Past illness Narrative* Problem Noted Date Diagnosed Date Resolved Date Gestational thrombocytopenia 05/01/2011 06/17/2011 Anemia during 05/01/201106/07 Unspecified high-risk 05/01/2011 06/17/2011 documented as of this encounter (statuses as of 01/03/2023) [facility] History of Past illness Narrative* Problem Noted Date Diagnosed Date Resolved Date Gestational thrombocytopenia 05/01/2011 06/17/2011 Anemia during 05/01/201106/07 Unspecified high-risk 05/01/2011 06/17/2011 documented as of this encounter (statuses as of 01/14/2023) [facility] note* Diagnosis Palpitations- Primary Vitreous floaters, unspecified laterality Tachycardia Tachycardia, unspecified Encounter for physical examination related to employment documented in this encounter [facility] note* Diagnosis Pharyngitis, unspecified etiology- Primary documented in this encounter [facility] note* Diagnosis Acute otitis externa of left ear, unspecified type- Primary Post-nasal drip Postnasal drip documented in this encounter [facility] note* Diagnosis Sore throat- Primary Acute pharyngitis documented in this encounter [facility] note* Diagnosis URI, acute- Primary Acute upper respiratory infections of unspecified site [facility] Outpatient Procedure (Routine) - Authorized Specialty Diagnoses / Procedures Referred By Yamileth mejias Referred To Contact [facility] Diagnoses Palpitations Tachycardia Procedures ECHO ECHO TTHRC R-T 2D W/WOM-MODE COMPL SPEC&COLR D Ursula Britton APRN.CNP [address] [place] [address] [facility] [address] [address] Referral ID Status Reason Start Date Expiration Date Visits Requested Visits Authorized [id number] Authorized Auto-Generat ed Referral 10/30/2021 10/30/2022 1 1 * Outpatient Procedure (Routine) - Closed Specialty Diagnoses / Procedures Referred By Yamileth mejias Referred To Contact [facility] Diagnoses Palpitations Tachycardia Procedures ECG COMPLETE ECG ROUTINE ECG W/LEAST 12 LDS W/I&R Ursula Britton APRN.CNP [address] [place] [address] [facility] [place] [address] [place] [address] Referral ID Status Reason Start Date Expiration Date V isits Requested Visits Authorized [id number] Closed Auto-Generate d Referral 10/30/2021 10/30/2022 1 1 * Consult, Test, Treat (Routine) - Authorized Specialty Diagnoses / Procedures Referred By Yamileth mejias Referred To Contact Ophthalmology Diagnoses Vitreous floaters, unspecified laterality Procedures CONSULT TO OPHTHALMOLOGY OFFICE/OUTPATIENT NEW HIGH MDM 60-74 MINUTES Ursula Britton APRN.CNP [address] [place] [address] Referral ID Status Reason Start Date Expiration Date Visits Requested Visits Authorized [id number] Authorized PCP Requested Referral 10/30/2021 10/30/2022 1 1 [facility] Summary Purpose Family History No Family History [...] or prosecute any alcohol or drug abuse patient.[facility] the event this information is protected by the Federal Confidentiality of Alcohol and Drug Abuse Patient Records regulations: The Federal rules restrict any use of the information to criminally investigate or prosecute any alcohol or drug abuse patient.[facility] the event this information is protected by the Federal Confidentiality of Alcohol and Drug Abuse Patient Records regulations: The Federal rules restrict any use of the information to criminally investigate or prosecute any alcohol or drug abuse patient.[facility] the event this information is protected by the Federal Confidentiality of Alcohol and Drug Abuse Patient Records regulations: The Federal rules restrict any use of the information to criminally investigate or prosecute any alcohol or drug abuse patient.[facility] HospitalIn the event this information is protected by the Federal Confidentiality of Alcohol and Drug Abuse Patient Records regulations: The Federal rules restrict any use of the information to criminally investigate or prosecute any alcohol or drug abuse patient.[facility] Reason for Visit (unrecogniz ed section and [...] BE BASED ON THE PRIMARY CLINICAL RECORDS. [employer]. provides no warranty or guarantee of the accuracy or completeness of information in this document.
== END | disposition home or self-care (01) ==
LOC: LAB 15:30
PROVIDERS: Referring Provider Obstetrics & Gynecology; Visit Provider Obstetrics & Gynecology
DX: N93.9 Abnormal uterine and vaginal bleeding, unspecified (principal); D69.6 Thrombocytopenia, unspecified; D72.819 Decreased white blood cell count, unspecified; D64.9 Anemia, unspecified
CPT/HCPCS: 36415; 85025

== ENCOUNTER → 2023-04-24 | Outpatient (CLI) | payer MEDICAID, SELFPAY ==
--- NOTE | 2023-04-24 12:50 | US_ITS ---
STUDY: ULTRASOUND OF THE FEMALE PELVIS - COMPLETE REASON FOR EXAM: Female, 32 years old. Abnormal Uterine Bleeding LMP: April 03, 2023. TECHNIQUE: Transvaginal TECHNICAL QUALITY: Adequate. COMPARISON: Comparison is made with prior study dated March 19, 2023. FINDINGS: The uterus is retroflexed and is in a midline position. The uterus measures 10.1 cm x 7.7 cm x 6.4 cm. Normal uterine cervix. The endometrium measures 17 mm in thickness, and is hyperechoic. There is no demonstrated endometrial mass. There is no demonstrated myometrial mass. I.U.D. - The patient does not have an I.U.D. The right ovary is visualized. The right ovary measures 3.8 cm x 2.7 cm x 2.3 cm. There is no right ovarian cyst or ovarian mass. There is no visualized right adnexal mass or complex lesion. There is normal arterial and normal venous vascularity. The left ovary is visualized. The left ovary measures 3.9 cm x 2.1 cm x 2.7 cm. A dominant follicle is seen within it. There is no visualized left adnexal mass or complex lesion. There is normal arterial and normal venous vascularity. There is no fluid in the cul-de-sac. US/Transvaginal Non- IMPRESSION: Normal female pelvis. Dominant follicle is seen in the left ovary. Electronically Signed: Cliff Ferrera MD at 15:03 EST ,
== END | disposition home or self-care (01) ==
LOC: US 12:49
PROVIDERS: Referring Provider Obstetrics & Gynecology; Visit Provider Obstetrics & Gynecology
DX: N93.9 Abnormal uterine and vaginal bleeding, unspecified (principal)
CPT/HCPCS: 76830

== ENCOUNTER 2023-05-15 18:30 | Emergency (ER) | payer MEDICAID, SELFPAY ==
[2023-05-15 18:31] VITALS: BP 133/90; PULSE 76; RESP 16; TEMP 36.6; O2SAT 100; BMI 23.1
[2023-05-15 18:33] VITALS: BP 124/64; PULSE 88; RESP 14; O2SAT 97
--- NOTE | 2023-05-15 18:35 | RAD_ITS ---
EXAM: XR LEFT ANKLE COMPLETE, 3 OR MORE VIEWS CLINICAL INDICATION: PAIN AND SWELLING TECHNIQUE: Frontal, lateral and oblique views of the left ankle. COMPARISON: No relevant prior studies available. FINDINGS: BONES/JOINTS: Unremarkable. No acute fracture. No subluxation. Normal alignment. Preservation of the joint space. No sclerotic or destructive changes observed. SOFT TISSUES: Unremarkable. No soft tissue swelling or gas. No radiopaque foreign body. RAD/Ankle min 3 Views IMPRESSION: Negative left ankle x-rays. Electronically Signed: Naresh Goldstein MD at 18:56 EST ,
--- OUTSIDE RECORDS SUMMARY | 2023-05-15 19:21 | XMS RPT_ITS | CCD ---
Author Name Unknown Address [id number] [place] [address] Organization [facility] Care Team Providers Care Anatomic Pathology Manager Name Role Phone Unavailable Primary Care Provider [...] 19:11-0500 Body temperature 97.59 [degF] Domenic Guo SHAKER OUT.HACKSAW INSPECTOR Work Phone: [facility] 01-13-2023 19:11-0500 Body weight 59.33 kg Domenic Guo SHAKER OUT.HACKSAW INSPECTOR Work Phone: [facility] 01-13-2023 19:11-0500 Diastolic blood pressure 74 mm[Hg] Domenic Guo SHAKER OUT.HACKSAW INSPECTOR Work Phone: [facility] 01-13-2023 19:11-0500 Heart rate 82 /min Domenic Guo SHAKER OUT.HACKSAW INSPECTOR Work Phone: [facility] 01-13-2023 19:11-0500 Respiratory rate 18 /min Domenic Guo SHAKER OUT.HACKSAW INSPECTOR Work Phone: [facility] 01-13-2023 19:11-0500 SaO2% (BldA) [Mass fraction] 99 % Domenic Guo SHAKER OUT.HACKSAW INSPECTOR Work Phone: [facility] 01-13-2023 19:11-0500 Systolic blood pressure 110 mm[Hg] Domenic Guo SHAKER OUT.HACKSAW INSPECTOR Work Phone: [facility] 01-03-2023 09:37-0400 Body temperature 97.7 [degF] Thao Ledger SHAKER OUT.HACKSAW INSPECTOR Work Phone: [facility] 01-03-2023 09:37-0400 Body weight 59.42 kg Thao Ledger SHAKER OUT.HACKSAW INSPECTOR Work Phone: [facility] 01-03-2023 09:37-0400 Diastolic blood pressure 66 mm[Hg] Thao Ledger SHAKER OUT.HACKSAW INSPECTOR Work Phone: [facility] 01-03-2023 09:37-0400 Heart rate 97 /min Thao Ledger SHAKER OUT.HACKSAW INSPECTOR Work Phone: [facility] 01-03-2023 09:37-0400 Respiratory rate 16 /min Thao Ledger SHAKER OUT.HACKSAW INSPECTOR Work Phone: [facility] 01-03-2023 09:37-0400 SaO2% (BldA) [Mass fraction] 98 % Thao Dash SHAKER OUT.HACKSAW INSPECTOR Work Phone: [facility] 01-03-2023 09:37-0400 Systolic blood pressure 110 mm[Hg] Thao Ledger SHAKER OUT.HACKSAW INSPECTOR Work Phone: [facility] 06-14-2022 10:58-0400 Body temperature 96.49 [degF] Rabia Athy PA-C Work Phone: [facility] 06-14-2022 10:58-0400 Body weight 60.06 kg Rabia Athy PA-C Work Phone: [facility] 06-14-2022 10:58-0400 Diastolic blood pressure 62 mm[Hg] Rabia Athy PA-C Work Phone: [facility] 06-14-2022 10:58-0400 Heart rate 81 /min Rabia Athy PA-C Work Phone: [facility] 06-14-2022 10:58-0400 Respiratory rate 18 /min Rabia Athy PA-C Work Phone: [facility] 06-14-2022 10:58-0400 SaO2% (BldA) [Mass fraction] 98 % Rabia Athy PA-C Work Phone: [facility] 06-14-2022 10:58-0400 Systolic blood pressure 110 mm[Hg] Rabia Athy PA-C Work Phone: [facility] 12-14-2021 12:13-0400 Body temperature 99.1 [degF] Kelly Mari SHAKER OUT.HACKSAW INSPECTOR Work Phone: [facility] 12-14-2021 12:13-0400 Body weight 58.51 kg Kelly Mari SHAKER OUT.HACKSAW INSPECTOR Work Phone: [facility] 12-14-2021 12:13-0400 Diastolic blood pressure 80 mm[Hg] Kelly Mari SHAKER OUT.HACKSAW INSPECTOR Work Phone: [facility] 12-14-2021 12:13-0400 Heart rate 97 /min Kelly Mari SHAKER OUT.HACKSAW INSPECTOR Work Phone: [facility] 12-14-2021 12:13-0400 Respiratory rate 16 /min Kelly Mari SHAKER OUT.HACKSAW INSPECTOR Work Phone: [facility] 12-14-2021 12:13-0400 SaO2% (BldA) [Mass fraction] 99 % Kelly Mari SHAKER OUT.HACKSAW INSPECTOR Work Phone: [facility] 12-14-2021 12:13-0400 Systolic blood pressure 128 mm[Hg] Kelly Mari SHAKER OUT.HACKSAW INSPECTOR Work Phone: [facility] 10-30-2021 11:24-0400 Body height 162.6 cm Ursula Older SHAKER OUT.HACKSAW INSPECTOR Work Phone: [facility] 10-30-2021 11:24-0400 Body weight 57.15 kg Ursula Older SHAKER OUT.HACKSAW INSPECTOR Work Phone: [facility] 10-30-2021 11:24-0400 Diastolic blood pressure 72 mm[Hg] Ursula Older SHAKER OUT.HACKSAW INSPECTOR Work Phone: [facility] 10-30-2021 11:24-0400 Heart rate 102 /min Ursula Older SHAKER OUT.HACKSAW INSPECTOR Work Phone: [facility] 10-30-2021 11:24-0400 Respiratory rate 16 /min Ursula Older SHAKER OUT.HACKSAW INSPECTOR Work Phone: [facility] 10-30-2021 11:24-0400 Systolic blood pressure 122 mm[Hg] Ursula Older SHAKER OUT.HACKSAW INSPECTOR Work Phone: [facility] Encounters Encounter Date Encounter Type Care Provider Facility Start: 04-11-2023 End: 04-11-2023 ambulatory Facility:[facility] Start: 01-13-2023 End: 01-13-2023 ambulatory Facility:[facility] Start: 01-13-2023 End: 01-13-2023 Patient encounter procedure Domenic Guo SHAKER OUT.HACKSAW INSPECTOR Work Phone: [facility] Procedures Date Procedure Procedure Detail Performing Clinician Start: 01-03-2023 STREP A MOLECULAR (POC) [facility] Provider Start: 12-14-2021 STREP A MOLECULAR (POC) Kelly Mari SHAKER OUT.HACKSAW INSPECTOR Work Phone: Start: 10-30-2021 Ecg routine ecg w/le ast 12 lds w/i&r [facility] Provider Start: 10-28-2021 Adult depression screening assessment Ursula Older SHAKER OUT.HACKSAW INSPECTOR Work Phone: Plan of Treatment Date Care Activity Detail Author Start: 10-24-2026 Urine microalbumin profile [facility] Start: 04-15-2024 PAP TESTING PAP TESTING [facility] Start: 11-07-2022 Influenza vaccination [facility] Start: 10-30-2022 COVID-19 VACCINE (#1) COVID-19 VACCI NE (#1) [facility] Immunizations Immunization Date Immunization Notes Care Provider Fa cility 04-01-2019 influenza, injectabl e, quadrivalent, contains preservative Ursula Older SHAKER OUT.HACKSAW INSPECTOR Work Phone: [facility] 04-01-2019 influenza virus vaccine, unspecified formulation Thao Bowling SHAKER OUT.HACKSAW INSPECTOR Work Phone: [facility] 10-24-2016 tetanus toxoid, redu noemy diphtheria toxoid, and acellular pertussis vaccine, adsorbed Ursula Older SHAKER OUT.HACKSAW INSPECTOR Work Phone: [facility] 12-19-2013 influenza, seasonal, injectable Ursula Older SHAKER OUT.HACKSAW INSPECTOR Work Phone: [facility] Work Phone: 01-02-2011 influenza virus vaccine, unspecified formulation Ursula Older SHAKER OUT.HACKSAW INSPECTOR Work Phone: [facility] Payers Date Payer Category Payer Medicaid [id number] 2022 Medicaid [id number] 2012 Medicaid [id number] Social History Date Type Detail Facility Start: 10-30-2021 Tobacco smoking status NHIS Never smoked tobacco [facility] Start: 10-30-2021 Tobacco use and exposure Smokeless tobacco non-user [facility] Start: 10-30-2021 End: 01-13-2023 Alcohol intake Current non-drinker of alcohol (finding) [facility] Start: 10-29-2021 History SDOH Alcohol Frequency 2 [facility] Start: 10-29-2021 History SDOH Alcohol Std Drinks 1 [facility] Start: 10-29-2021 History SDOH Social Connections Phone 5 [facility] Start: 10-29-2021 History SDOH Social Connections Sikh 3 [facility] Start: 10-29-2021 History SDOH Social Connections Living 7 [facility] Start: 10-29-2021 History SDOH Physical Activity MPS 98 [facility] Start: 10-29-2021 History SDOH Financial 4 [facility] Start: 1990 Sex Assigned At Not on file [facility] Start: 10-12-2021 End: 10-22-2021 Exposure to SARS-CoV-2 (event) Not sure [facility] Work Phone: Start: 10-28-2021 End: 04-04-2022 History of Social function [facility] Start: 10-28-2021 End: 04-04-2022 Social connection and isolation panel [facility] Do you belong to any clubs or organizations such as anabaptist groups, unions, fraternal or athletic groups, or school groups? No [facility] Are you now , , , , never or living with a partner? Never [facility] How often to you hav e a drink containing alcohol? Monthly or less [facility] How many standard dr inks containing alcohol do you have on a typical day? 1 or 2 [facility] How often do you hav e 6 or more drinks on 1 occasion? Never [facility] How hard is it for y ou to pay for the very basics like food, housing, medical care, and heating Not very hard [facility] Adult Depression Screening Assessment 0 [facility] Do you feel stress - tense, restless, nervous, or anxious, or unable to sleep at night because your mind is troubled all the time - these days [OSQ] Not at all [facility] (I/We) worried wheth er (my/our) food would run out before (I/we) got money to buy more. Never true [facility] Start: 04-01-2019 Gender identity Identifies as female gender (finding) [facility] Work Phone: Start: 04-01-2019 Sexual orientation Heterosexual (finding) [facility] Work Phone: Clinical Notes 05-01-2011 to 04-11-2023 Domenic Guo APRN.HACKSAW INSPECTOR - 01/13/2023 7:16 PM Thao Lan APRN.HACKSAW INSPECTOR - 01/03/2023 9:40 AM EDTCjose daniel Dumont PA-C - 06/14/2022 11:12 AM EDTPterrence Umanzor Ma - 10/30/2021 12:54 PM EDT Note Date & Type Note Facility 04-11-2023 Note HNO ID: [id number] Author: KELLY MARI APRN.HACKSAW INSPECTOR Service: ? Author Type: Nurse Practitioner Type: Progress Notes Filed: 04/11/2023 12:23 Note Text: This note was created using NoteWriter. Subjective Rosi Singleton is a 32 year old female. 32 year old female with no PMH presents for illness. Acute onset one day ago + feels swollen with swelling, otherwise denies at baseline. +post nasal drainage Denies cough Denies fever or chills. Denies SOB or dyspnea Denies abdominal pain Denies N/V/D Denies tobacco usage Accompanied by child for similar symptoms Just want to make sure we are not contagious The history is provided by the patient. No speech and language assistant was used. Pharyngitis This is a new problem. The current episode started yesterday. The problem occurs constantly. The problem has been unchanged. Associated symptoms include a sore throat. Pertinent negatives include no abdominal pain, anorexia, arthralgias, change in bowel habit, chest pain, chills, congestion, coughing, diaphoresis, fatigue, fever, headaches, joint swelling, myalgias, nausea, neck pain, numbness, rash, swollen glands, urinary symptoms, vertigo, visual change, vomiting or weakness. Nothing aggravates the symptoms. She has tried nothing for the symptoms. The treatment provided no relief. PAST MEDICAL HISTORY Diagnosis Date Anemia Fractured bone RIGHT WRIST Gestational thrombocytopenia (HCC) 05/01/2011 Ovarian cyst 2019 PAST SURGICAL HISTORY Procedure Laterality Date NONE ALLERGIES Patient has no known allergies. MEDICATIONS predniSONE (DELTASONE) 10 mg tablet Take 4 tabs daily for 3 days, then 2 tabs daily for 3 days, then 1 tab daily for 3 days with food. fluticasone (FLONASE) 50 mcg/actuation nasal spray Use 2 Sprays in each nostril once daily. Rinse mouth after use. (Patient not taking: Reported on 04/11/2023) FAMILY HISTORY Problem Relation Age of Onset [...] No Review of Systems Constitutional: Negative for chills, diaphoresis, fatigue and fever. HENT: Positive for sore throat. Negative for congestion and ear pain. Eyes: Negative for pain, discharge, redness and itching. Respiratory: Negative for apnea, cough, choking and chest tightness. Cardiovascular: Negative for chest pain. Gastrointestinal: Negative for abdominal pain, anorexia, change in bowel habit, nausea and vomiting. Musculoskeletal: Negative for arthralgias, joint swelling, myalgias and neck pain. Skin: Negative for color change, pallor and rash. Allergic/Immunologic: Negative for environmental allergies, food allergies and immunocompromised state. Neurological: Negative for dizziness, vertigo, facial asymmetry, weakness, numbness and headaches. Hematological: Negative for adenopathy. Does not bruise/bleed easily. Psychiatric/Behavioral: Negative for agitation and behavioral problems. Objective BP 130/82 Pulse 68 Temp 36.4 ?C (97.6 ?F) (Tympanic) Resp 16 Wt 58.2 kg (128 lb 3.2 oz) LMP 03/21/2019 (Approximate) SpO2 100% BMI 22.01 kg/m? Physical Exam Vitals and nursing note reviewed. [...] membranes are moist. Pharynx: Posterior oropharyngeal erythema present. No oropharyngeal exudate. Comments: B/L tonsils 1 + enlarged bilateral Eyes: General: Right eye: No discharge. Left [...] rebound. Hernia: No hernia is present. Musculoskeletal: General (more content not included)... [facility] 01-13-2023 Note HNO ID: [id number] Author: Domenic Guo APRN.HACKSAW INSPECTOR Service: ? Author Type: Nurse Practitioner Type: [...] - PREDNISONE 20 MG TABLET Domenic Guo APRN.[facility] 01-13-2023 History of Present illness [...] - PREDNISONE 20 MG TABLET Domenic Guo APRN.HACKSAW INSPECTOR documented in this encounter [facility] 01-03-2023 Note HNO ID: [id number] Author: Thao Bowling APRN.HACKSAW INSPECTOR Service: ? Author Type: Nurse Practitioner Type: Progress Notes Filed: 01/03/2023 10:18 AM Note Text: This note was created using Obsorbriter. Subjective Rosi Singleton is a 32 year [...] Medical Decision Making Level: 3 - Low [facility] 01-03-2023 History of Present illness Narrative This note was created using NoteWriter. Subjective Rosi Singleton is a 32 year [...] 3 - Low documented in this encounter [facility] 11-18-2022 Note HNO ID: [id number] Author: Michelle Martines PA-C Service: ? Author Type: Physician Rn Dermatology Type: Progress Notes Filed: 11/18/2022 2:01 PM [...] with the plan. 11/18/2022 Michelle Martines PA-C [facility] 06-14-2022 Note HNO ID: [id number] Author: Rabia Dumont PA-C Service: ? Author Type: Physician Rn Dermatology Type: Progress Notes Filed: 06/14/2022 11:14 AM Note Text: This note was created using NoteWriter. Subjective Rosi Singleton is a 32 year old female. HPI Presents with postnasal drip, congestion in the back of the throat over the past month. Her ear started bothering her the past 2 days. The left worse than the right. She put some enec-vph-xxqnoyo drops in the left ear but they [...] injection (DEFINITY) INTRAVENOUS DIRECTED PRN Ursula Older, SHAKER OUT.HACKSAW INSPECTOR sodium chloride 0.9 % (flush) 10 mL (BD POSIFLUSH) 10 mL INTRAVENOUS DIRECTED PRN Ursula Older, SHAKER OUT.HACKSAW INSPECTOR PAST SURGICAL HISTORY Procedure Laterality Date NONE [...] improving follow-up with PCP. Rabia Dumont PA-C [facility] 06-14-2022 History of Present illness Narrative This note was created using Obsorbriter. Subjective Rosi Singleton is a 32 year old female. HPI Presents with postnasal drip, congestion in the back of the throat over the past month. Her ear started bothering her the past 2 days. The left worse than the right. She put some mgjg-jdh-pbyyhpu drops in the left ear but they [...] WRIST Gestational thrombocytopenia (HCC) 05/01/2011 Ovarian cyst 2018 Current Outpatient Medications Medication Sig Dispense Refill [...] injection (DEFINITY) INTRAVENOUS DIRECTED PRN Ursula Older, SHAKER OUT.HACKSAW INSPECTOR sodium chloride 0.9 % (flush) 10 mL (BD POSIFLUSH) 10 mL INTRAVENOUS DIRECTED PRN Ursula Older, SHAKER OUT.HACKSAW INSPECTOR PAST SURGICAL HISTORY Procedure Laterality Date NONE [...] Rabia Dumont PA-C documented in this encounter [facility] 12-14-2021 Instructions Kelly Mari APRN.[facility] - 12/14/2021 12:57 PM EDT EXPRESS [...] (eg, ice cream, popsicles). Alternative therapies -- [employer] food stores, vitamin outlets, and Internet Web [...] contaminate your hand documented in this encounter [facility] 12-14-2021 History of Present illness Narrative This note was created using Obsorbriter. Subjective Rosi Singleton is a 31 year [...] is provided by the patient. No speech and language assistant was used. Sore Throat This is a [...] STREP A MOLECULAR (POC) Declines COVID testing Kelly Mari APRN.[facility] documented in this encounter [facility] 10-30-2021 Nurse Note EVENT MONITOR DISPOSABLE PATCH INSTRUCTIONS Patient Name: Rosi Singleton Clinic Number: [id number] Skin prepped and cleansed with alcohol Patch secured to prepped area Monitor Activated Serial #: [id number] Patient Instructed: Prescribed order timeframe Bathing guidelines Usage of event button and diary documentation Return of monitor at the end of prescribed order Call with problems [phone] or [phone]. [phone] Patient expresses a good understanding of instructions Dylan Umanzor Ma documented in this encounter [facility] 10-30-2021 History of Present illness Narrative CC: Patient presents with: Physical: Form for work HPI Rosi Singleton is a 31 year old female who presents today for above. 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 Form completed and returned to patient Prescription instructions reviewed with patient as applicable. Potential red flag symptoms discussed with the patient. Reviewed appropriate action plan to take if red flag symptoms occur. Patient agreeable to treatment plan. Ursula Britton APRN.CNP documented in this encounter [facility] documented as of this encounter (statuses as of 10/30/2021) [facility]02-23[facility]2012 History of Past illness Narrative* Problem Noted Date Resolved Date Gestational thrombocytopenia 05/01/201112/2011 Anemia during 05/01/2011 06/17/19 12 Unspecified high-risk 05/01/2011 06/17/2011 documented as of this encounter (statuses as of 12/14/2021) [facility]02-23-2012 History of Past illness Narrative* Problem Noted Date Resolved Date Gestational thrombocytopenia 05/01/201112/2011 Anemia during 05/01/2011 06/17/19 12 Unspecified high-risk 05/01/2011 06/17/2011 documented as of this encounter (statuses as of 06/14/2022) [address]23-2012 History of Past illness Narrative* Problem Noted Date Diagnosed Date Resolved Date Gestational thrombocytopenia 05/01/2011 06/17/2011 Anemia during 05/01/201106/07 Unspecified high-risk 05/01/2011 06/17/2011 documented as of this encounter (statuses as of 01/03/2023) [facility]-23-2012 History of Past illness Narrative* Problem Noted Date Diagnosed Date Resolved Date Gestational thrombocytopenia 05/01/2011 06/17/2011 Anemia during 05/01/201106/07 Unspecified high-risk 05/01/2011 06/17/2011 documented as of this encounter (statuses as of 01/14/2023) [facility] note* Diagnosis Palpitations- Primary Vitreous floaters, unspecified laterality Tachycardia Tachycardia, unspecified Encounter for physical examination related to employment [facility] Diagnosis Pharyngitis, unspecified etiology- Primary documented in this encounter [facility] note* Diagnosis Acute otitis externa of left ear, unspecified type- Primary Post-nasal drip Postnasal drip [facility] Diagnosis Sore throat- Primary Acute pharyngitis [facility] Diagnosis URI, acute- Primary Acute upper respiratory infections of unspecified site [facility] Outpatient Procedure (Routine) - Authorized Specialty Diagnoses / Procedures Referred By Yamileth mejias [facility] Diagnoses Palpitations Tachycardia Procedures ECHO ECHO TTHRC R-T 2D W/WOM-MODE COMPL SPEC&COLR D Ursula Britton APRN.CNP [address] [place] [address] [facility] [address] [place] [id number] Referral ID Status Reason Start Date Expiration Date Visits Requested Visits Authorized [id number] Authorized Auto-Generat ed Referral 10/30/2021 10/30/2022 1 1 * Outpatient Procedure (Routine) - Closed Specialty Diagnoses / Procedures Referred By Yamileth mejias Ref[facility] Diagnoses Palpitations Tachycardia Procedures ECG COMPLETE ECG ROUTINE ECG W/LEAST 12 LDS W/I&R Ursula Britton APRN.CNP [address] [place] [address] [facility] [address] [place] [address] Referral ID Status Reason Start Date Expiration Date V isits Requested Visits Authorized [id number] Closed Auto-Generate d Referral 10/30/2021 10/30/2022 1 1 * Consult, Test, Treat (Routine) - Authorized Specialty Diagnoses / Procedures Referred By Contkendall mejias Referred To Contact Ophthalmology Diagnoses Vitreous floaters, unspecified laterality Procedures CONSULT TO OPHTHALMOLOGY OFFICE/OUTPATIENT [facility] MDM 60-74 MINUTES Ursula Britton APRN.CNP [address] [place] [address] Referral ID Status Reason Start Date Expiration Date Visits Requested Visits Authorized [id number] Authorized PCP Requested Referral 10/30/2021 10/30/2022 1 1 [facility] Summary Purpose Family History No Family History [...] or prosecute any alcohol or drug abuse patient.[facility] the event this information is protected by the Federal Confidentiality of Alcohol and Drug Abuse Patient Records regulations: The Federal rules restrict any use of the information to criminally investigate or prosecute any alcohol or drug abuse patient.[facility] the event this information is protected by the Federal Confidentiality of Alcohol and Drug Abuse Patient Records regulations: The Federal rules restrict any use of the information to criminally investigate or prosecute any alcohol or drug abuse patient.[facility] the event this information is protected by the Federal Confidentiality of Alcohol and Drug Abuse Patient Records regulations: The Federal rules restrict any use of the information to criminally investigate or prosecute any alcohol or drug abuse patient.[facility] the event this information is protected by the Federal Confidentiality of Alcohol and Drug Abuse Patient Records regulations: The Federal rules restrict any use of the information to criminally investigate or prosecute any alcohol or drug abuse patient.[facility] Reason for Visit (unrecogniz ed section and [...] BE BASED ON THE PRIMARY CLINICAL RECORDS. [employer] provides no warranty or guarantee of the accuracy or completeness of information in this document.
[2023-05-15 19:27] VITALS: BP 124/76; PULSE 64; RESP 16; TEMP 36.3; O2SAT 99
--- NOTE | 2023-05-15 19:36 | ED.VIS.LOWEX ---
HPI <ARMANDO Egan - Last Filed: 05/15/23 19:40> History of Present Illness Chief Complaint: Lower Extremity Injury Narrative Narrative: Patient presenting today due to pain to her left ankle that she has had since Thursday. She reports that her daughter was giving her a massage to her foot and she began to notice pain to her ankle with the massage. She reports that she was at work today and started to notice increased pain to the area and wanted to come in for an x-ray. She denies any trauma to the ankle, fevers, and chills. PFSH <ARMANDO Egan - Last Filed: 05/15/23 19:40> PFSH Medical History Anemia Syncopal episodes Home Medications tranexamic acid 650 mg tablet 1,300 mg (2 x 650 mg) PO TID 5 days #30 tabs 04/03/23 [Rx Last Taken Unknown] Allergy/AdvReac Type Severity Reaction Status Date / Time No Known Allergies Allergy Verified 05/15/23 18:32 Family History Father Pancreatic cancer Diabetes Blood clot in vein Daughter Type 1 diabetes Other Myocardial infarction Social History adopted: No household members: children housing: apartment number of children: 2 Smoking Status: Never smoker Electronic Cigarette Use: not used second hand exposure: No alcohol intake: never substance use type: does not use jaci/oriental orthodox: Seventh Day Yazidi seatbelt use: always do you feel safe at home: Yes ROS <ARMANDO Egan - Last Filed: 05/15/23 19:40> ROS ED Constitutional Constitutional ED: Denies chills or fever(s) Cardiovascular Cardiovascular: Denies chest pain Respiratory/Chest Respiratory/Chest: Denies cough or dyspnea Gastrointestinal Gastrointestinal: Denies abdominal pain, nausea or vomiting Musculoskeletal Musculoskeletal: Reports arthralgias Integumentary Denies rash Neurologic Neurologic: Denies paresthesias EXAM <ARMANDO Egan - Last Filed: 05/15/23 19:40> Physical Exam Const Vital Signs: 05/15/23 18:31 05/15/23 18:33 05/15/23 19:27 Temperature 98 F 97.3 F L Temperature Source Temporal Pulse Rate 76 88 64 Respiratory Rate 16 14 16 Blood Pressure 133/90 H 124/64 H 124/76 H Blood Pressure Mean 104 84 92 Pulse Ox 100 97 99 Oxygen Delivery Method Room Air Room Air Positive well nourished, well developed and no apparent distress General Appearance ED: well developed HEENT Reports normocephalic and head/scalp atraumatic Mouth ED: Yes moist mucous membranes normal Eyes PERRL and EOMs intact bilaterally Neck full ROM and supple Chest Wall inspection of chest normal Resp normal respiratory effort and clear to auscultation bilaterally Cardio regular rate and regular rhythm GI soft to palpation, non-tender, non-distended and no masses Back/Spine normal ROM and normal to inspection Extremity normal to inspection and full ROM Extremity Narrative: No pain to palpation to the lateral and medial malleolus, no swelling, no signs of septic joint, minimal pain to the ATFL, right DP pulse 2+, good capillary refill, sensation intact. Neuro oriented x3, CN's II-XII intact bilaterally, moves all extremities, no focal motor deficits and no sensory deficits noted Sensorium / Orientation: awake and alert Psych mental status grossly normal and thought process normal Skin no rashes or lesions noted and no wounds <Dr. Akash Simpson DO - Last Filed: 05/15/23 22:20> Physical Exam Const Vital Signs: 05/15/23 18:31 05/15/23 18:33 05/15/23 19:27 Temperature 98 F 97.3 F L Temperature Source Temporal Pulse Rate 76 88 64 Respiratory Rate 16 14 16 Blood Pressure 133/90 H 124/64 H 124/76 H Blood Pressure Mean 104 84 92 Pulse Ox 100 97 99 Oxygen Delivery Method Room Air Room Air [facility] <ARMANDO Egan - Last Filed: 05/15/23 19:40> [facility] Narrative Medical decision making narrative: Patient presenting today with pain to her left ankle that she has had since Thursday after her daughter gave her a foot massage and put pressure on the area. No injury. She is able to ambulate without difficulty. Examination is unremarkable, she does not have any significant pain to palpation, no swelling, full range of motion to the ankle, no signs of septic joint, no cellulitis. X-ray was obtained and is negative for any acute findings. RICE instructions given, she can alternate Tylenol and ibuprofen for pain as needed. She was given an Abelardo wrap, she is to follow-up with her PCP and will be discharged home in stable condition. She is comfortable with plan. Radiography X-Ray: Read by ED Physician Diagnostic Testing: Clinical Impression(s) from Imaging Studies Ankle X-Ray 05/15/23 18:35 IMPRESSION: Negative left ankle x-rays. Electronically Signed: Naresh Goldstein MD at 18:56 EST , <Dr. Akash Simpson, DO - Last Filed: 05/15/23 22:20> [facility] MDM Narrative Medical decision making narrative: Patient presenting today with pain to her left ankle that she has had since Thursday after her daughter gave her a foot massage and put pressure on the area. No injury. She is able to ambulate without difficulty. Examination is unremarkable, she does not have any significant pain to palpation, no swelling, full range of motion to the ankle, no signs of septic joint, no cellulitis. X-ray was obtained and is negative for any acute findings. RICE instructions given, she can alternate Tylenol and ibuprofen for pain as needed. She was given an Abelardo wrap, she is to follow-up with her PCP and will be discharged home in stable condition. She is comfortable with plan. Attending note: Patient seen and evaluated with single ending machine operator. I perform my own [id number] evaluation. I agree with the plan of work-up. Pain to anterior ankle. States he was getting massage by her daughter. Denies any specific trauma. Exam tender palpation is anterior to medial malleolus. There is no erythema no swelling no clinical septic joint. Skin intact. Three-view x-ray of left ankle interpreted myself read by radiology shows no acute process. Abelardo wrap provided. Outpatient follow-up. Radiography Diagnostic Testing: Clinical Impression(s) from Imaging Studies Ankle X-Ray 05/15/23 18:35 IMPRESSION: Negative left ankle x-rays. Electronically Signed: Naresh Goldstein MD at 18:56 EST , Discharge Plan Triage Chief Complaint: Lower Extremity Injury ED Midlevel Provider: Carmita Lyon ED Provider: Akash Simpson Dx/Rx/DC Orders Clinical Impression: Ankle pain, left Instructions: ED Ankle Sprain (Adult) Prescriptions: No Action tranexamic acid 650 mg tablet 1,300 mg PO TID 5 Days Qty: 30 4RF Rx Instructions: begin at onset of menstrual bleeding Primary Care Provider: Care Physician,No Primary Referrals: Care Physician,No Primary [Primary Care Provider] - Activity Restrictions/Additional Instructions: Alternate Tylenol and ibuprofen as needed for your pain. Follow-up with PCP in 1 week if no improvement. Disposition Disposition: Home, Self Care Discharge Date/Time: 05/15/23 19:28
== END 2023-05-15 19:28 | disposition home or self-care (01) ==
PROVIDERS: Emergency Provider Emergency Medicine; Visit Provider Emergency Medicine
DX: M25.572 Pain in left ankle and joints of left foot (principal); X58.XXXA Exposure to other specified factors, initial encounter
CPT/HCPCS: 73610; 99282

== ENCOUNTER → 2023-05-22 | Outpatient (CLI) | payer MEDICAID, SELFPAY ==
--- NOTE | 2023-05-22 14:59 | VDLE_ITS ---
Reason For Study: Left leg edema Procedure LEFT This is a venous duplex using B-mode, color GSV is normal. flow and spectral Doppler. CFV is compressible, spontaneous, phasic, Exam performed in department. competent, and demonstrates normal A preliminary report was called and/or faxed augmentation. to Dr. East. FV is compressible, spontaneous, phasic, competent and demonstrates normal augmentation. POP V is compressible, spontaneous, phasic, competent and demonstrates normal augmentation. T/P Trunk is compressible. PTV is compressible. LT PerV is compressible. VL/Venous Duplex US, Unilateral Interpretation Summary There is no evidence of left lower extremity deep vein thrombosis. Left great s aphenous vein appears patent and compressible segmentally. Ordering Physician: Renate East Performed By: Valentina Mulligan RVT
== END | disposition home or self-care (01) ==
LOC: CVS 14:59
PROVIDERS: Referring Provider Obstetrics & Gynecology; Visit Provider Obstetrics & Gynecology
DX: R60.0 Localized edema (principal)
CPT/HCPCS: 93971

== ENCOUNTER → 2023-11-27 | Outpatient (CLI) | payer MEDICAID, SELFPAY ==
[2023-12-03 10:09] LABS: HPV APTIMA, High Risk Positive (Negative)
== END | disposition home or self-care (01) ==
LOC: LABSPEC 16:43
PROVIDERS: Referring Provider Obstetrics & Gynecology; Visit Provider Obstetrics & Gynecology
DX: Z12.4 Encounter for screening for malignant neoplasm of cervix (principal)
CPT/HCPCS: 87624; 88175; G0145

== ENCOUNTER 2024-10-18 03:19 | Emergency (ER) | payer MEDICAID, SELFPAY ==
[2024-10-18 03:20] VITALS: BP 123/71; PULSE 92; RESP 16; TEMP 36.6; O2SAT 100; BMI 23.5
--- NOTE | 2024-10-18 03:42 | EDS_ITS ---
HPI History of Present Illness Chief Complaint: Abd Pain Informant: patient and spouse/S.O. Narrative Narrative: Patient is a 34-year-old female with past medical history of thrombocytopenia iron deficiency anemia and HPV. She states she went to bed normally and then awoke roughly 20 to 30 minutes prior to arrival with pain in the midepigastric region. She states that she does not have a history of gastritis/GERD nor does she have a history of gallbladder disease or alcohol abuse or previous pancreatitis. She states there is no concern for and she denies any dysuria or hematuria. The pain is only been present a short time but based on its sudden onset and severity she was concerned about potential infection and therefore comes in for evaluation. [facility] Medical History Syncopal episodes Anemia Home Medications ?Medication ?Instructions ?Recorded ?Last Taken ?Type ferrous sulfate 27 mg iron tablet 27 mg PO DAILY 05/21 Unknown History ondansetron 4 mg disintegrating 4 mg PO TID PRN nausea and 10/18/24 Unknown Rx tablet vomiting #21 tabs oxycodone-acetaminophen 5 mg-325 1 tab PO Q6H PRN pain 3 days #12 10/18/24 Unknown Rx mg tablet (Percocet) tabs tranexamic acid 650 mg tablet 1,300 mg PO TID 10/18/24 Unknown History Allergy/AdvReac Type Severity Reaction Status Date / Time No Known Allergies Allergy Verified 10/18/24 03:19 Family History Father Pancreatic cancer Diabetes Blood clot in vein Daughter Type 1 diabetes Other Myocardial infarction Social History adopted: No household members: children housing: apartment number of children: 2 Smoking Status: Never smoker Electronic Cigarette Use: not used second hand exposure: No alcohol intake: never substance use type: does not use jaci/judaism: Seventh Day Zoroastrian seatbelt use: always do you feel safe at home: Yes additional social history: single ROS ROS ED Constitutional Constitutional ED: Denies chills or fever(s) Eyes Eyes: Denies change in vision ENT ENT ED: Denies sore throat Cardiovascular Cardiovascular: Denies chest pain Respiratory/Chest Respiratory/Chest: Denies cough or dyspnea Gastrointestinal Gastrointestinal: Reports abdominal pain; Denies constipation, diarrhea, melena, nausea or vomiting Genitourinary Genitourinary ED: Denies dysuria or hematuria Musculoskeletal Musculoskeletal: Denies back pain Integumentary Denies rash Neurologic Neurologic: Denies headache(s) Hematologic/Lymphatic Hematologic/Lymphatic: Reports easy bleeding and easy bruising EXAM Physical Exam Const Vital Signs: 10/18/24 03:20 10/18/24 05:00 Temperature 97.9 F Temperature Source Oral Pulse Rate 92 73 Respiratory Rate 16 16 Blood Pressure 123/71 H 116/75 Blood Pressure Mean 88 88 Pulse Ox 100 100 Oxygen Delivery Method Room Air Room Air Positive well nourished and well developed General Appearance ED: well developed; Negative for pallor HEENT Reports moist mucous membranes HEENT Narrative: Normocephalic atraumatic No tongue or lip swelling no oral lesions no airway edema or compromise; no secondary findings in the posterior pharynx to suggest infection Eyes PERRL and EOMs intact bilaterally General Eye ED: Negative for scleral icterus Neck supple Neck Narrative: No nuchal rigidity or meningeal signs Resp normal respiratory effort and clear to auscultation bilaterally Cardio regular rate and regular rhythm Rate: other Other Details: Heart is regular rate and rhythm without murmurs rubs or gallop Radial and carotid pulses are equal and symmetric GI non-distended and no masses GI Narrative: Abdomen is soft and nondistended with hyperactive bowel sounds. There is mild diffuse pain on palpation but greatest in the midepigastric and right upper quadrant region. Negative Hu sign. No voluntary guarding or rigidity. No pulsatile mass or fluid wave. No peritoneal signs Auscultation: hyperactive bowel sounds Palpation: soft Back/Spine no CVA tenderness Extremity normal to inspection Neuro oriented x3, CN's II-XII intact bilaterally and no sensory deficits noted Sensorium / Orientation: alert Motor Exam: strength 5/5 throughout Psych mental status grossly normal Skin no rashes or lesions noted General Skin Exam: Negative for jaundice or pallor MDM MDM MDM Narrative Medical decision making narrative: Patient arrived to the ER with stable vital. She reported that she went to bed normally and awoke with sharp sudden onset of pain. Differential diagnosis is for pancreatitis versus biliary colic versus acute cholecystitis versus UTI versus kidney stone versus ovarian pathology such as a cyst. Secondary to her sudden onset of pain I did elect to perform basic laboratory studies and a urine sample. test is negative going against complication. Lipase is normal going against pancreatitis. Urine shows no blood or sign of infection going against kidney stone or UTI/pyelonephritis. CT scan revealed a recently ruptured ovarian cyst which would correlate with her sudden onset of pain but was otherwise normal without findings of colitis/diverticulitis or appendicitis or obstruction or perforation. On reevaluation the patient is resting comfortably and her abdomen remains soft and nonsurgical. Therefore with a CT scan showing findings consistent with her sudden onset of pain but no sign of secondary infection or obstruction and patient having improved pain control in the ER do not feel the need for emergent TREASURY REPRESENTATIVE consultation and patient is otherwise safe for discharge with outpatient follow-up. History & Record Review Discussion w/independent historian: Patient Lab Data Attestation: I reviewed the patient's lab results. Labs: Laboratory Results - last 24 hr 10/18/24 10/18/24 03:25 03:40 WBC 5.8 RBC 4.02 L Hgb 12.5 Hct 35.6 L MCV 88.6 MCH 31.1 MCHC 35.1 RDW Std Deviation 37.8 RDW Coeff of Yoseph 11.7 Plt Count 171 MPV 9.0 Immature Gran % (Auto) 0.200 Neut % (Auto) 41.1 L Lymph % (Auto) 47.4 H [place] % (Auto) 9.4 Eos % (Auto) 1.4 Baso % (Auto) 0.5 Absolute Neuts (auto) 2.4 Absolute Lymphs (auto) 2.73 Nucleated RBC % 0 Sodium 138 Potassium 3.5 Chloride 105 Carbon Dioxide 18.4 L Anion Gap 15 BUN 11 Creatinine 0.81 Estim Creat Clear Calc 84.51 Est GFR (MDRD) Non-Af 98 BUN/Creatinine Ratio 13.5 Glucose 79 Calcium 9.0 Total Bilirubin 0.23 Direct Bilirubin 0.10 AST 19 ALT 14 Alkaline Phosphatase 42 Total Protein 7.2 Albumin 4.3 Globulin 2.9 Lipase 65 Urine Color Yellow Urine Clarity Clear Urine pH 6.0 Ur Specific [place] 1.030 Urine Protein 30 H Urine Glucose (UA) Normal Urine Ketones Negative Urine Occult Blood Negative Urine Nitrite Negative Urine Bilirubin Negative Urine Urobilinogen Normal Ur Leukocyte Esterase Negative Urine RBC 0-5 SEEN Urine WBC 0-5 SEEN Ur Squamous Epith Cells 5-10 SEEN Urine Bacteria 1+ Urine Mucus 0 SEEN Urine Test Negative Radiography Diagnostic Testing: Clinical Impression(s) from Imaging Studies Abdomen/Pelvis CT 10/18/24 04:55 IMPRESSION: Recent left ovarian cyst rupture with pelvic fluid, this can be a cause of pain. Reading Location: [place] [id number] Discharge Plan Triage Chief Complaint: Abd Pain ED Provider: Jovan Henry Dx/Rx/DC Orders Clinical Impression: Ruptured cyst of left ovary, Iron deficiency anemia Instructions: ED Ovarian Cyst Prescriptions: New ondansetron 4 mg tablet,disintegrating 4 mg PO TID PRN (Reason: nausea and vomiting) Qty: 21 0RF oxycodone-acetaminophen [Percocet] 5-325 mg tablet 1 tab PO Q6H PRN (Reason: pain) 3 Days Qty: 12 0RF No Action ferrous sulfate 27 mg iron tablet 27 mg PO DAILY tranexamic acid 650 mg tablet 1,300 mg PO TID Patient Comments: FOR 5 DAYS DURING MENSTRUAL BLEEDING Primary Care Provider: Care Physician,No Primary Referrals: Mayra Damian DO [Med Staff - Active Staff] - (Ruptured ovarian cyst) Care Physician,No Primary [Primary Care Provider] - Activity Restrictions/Additional Instructions: Please follow-up with your TREASURY REPRESENTATIVE for repeat evaluation regarding your ruptured ovarian cyst. Take the prescribed medications as directed to help control pain and return to the ER should you have any further concerns Print Language: Malaysian Disposition Disposition: Home, Self Care
[2024-10-18] MEDS: Pantoprazole Sodium 40 MG in 0.9% Normal Saline (100mL MB+) 100 ML 300 MG IV (03:48)
[2024-10-18] MEDS: Lidocaine 2% Viscous15 ML UDC 15 ML PO (03:48)
[2024-10-18] MEDS: 0.9% Normal Saline (1000mL) 1,000 ML 999 ML IV (03:48)
[2024-10-18 03:49] LABS: Hematocrit 35.6 % (37-47); Hemoglobin 12.5 g/dL (12.0-15.0); Immature Granulocytes Count 0.010 X10^3/uL (0.0-0.0); Mean Corp Hgb Conc 35.1 g/dL (32-36); Mean Corpuscular Volume 88.6 fL (81-99); Mean Platelet Vol. 9.0 fl (6.2-12.0); NRBC Flagged by Analyzer 0 % (0-5); Platelet Count 171 K/mm3 (150-450); RBC Distribution Width CV 11.7 % (11.6-14.6); RBC Distribution Width SD 37.8 fl (35.1-43.9); Red Blood Count 4.02 M/mm3 (4.2-5.4); White Blood Count 5.8 K/mm3 (4.4-11.0)
[2024-10-18 03:49] LABS: Mucous, Urine 0 SEEN /hpf (<or=2+)
[2024-10-18 03:51] LABS: Color, Urine Yellow (Yellow); Glucose, Dipstick Normal (Normal); Ketone-Dipstick Negative (Negative); Leukocyte Esterase-Dipstick Negative /ul (Negative); Nitrite-Dipstick Negative (Negative); Occult Blood-Urine Negative /ul (Negative); Protein-Dipstick 30 mg/dl (Negative); Specific Gravity, Urine 1.030 (1.002-1.030); Urine Bilirubin Dipstick Negative (Negative)
--- OUTSIDE RECORDS SUMMARY | 2024-10-18 03:52 | XMS RPT_ITS | CCD ---
Author Organization [facility] Care Team Providers Care Equity Analyst Name Role Phone Unavailable Primary Care Provider Unavailabl e Care Physician, No Primary Primary Care Provider Unavailable Care Physician, No Primary Referring Provider Un available Dr. Renate East Attending Provider Dr. Stanislav Cervantes Attending Provider [phone] Renate East Referring Provider [phone] Unavailable Primary Care Provider Unavailabl e Care Physician, No Primary Primary Care Provider Unavailable Care Physician, No Primary Referring Provider Un available Dr. Renate East Attending Provider Dr. Stanislav Cervantes Attending Provider Dr. Renate East Referring Provider [phone] Dr. Donovan Yan Attending Provider [phone] Care Physician, No Primary Primary Care Unava ilable Care Physician, No Primary Referring Unava ilRenate Aldana Attending Unavailable Care Physician, No Primary Primary Care Unava ilable Care Physician, No Primary Referring Unava ilable Renate East Attending Unavailable Care Physician, No Primary Primary Care Unava ilable Care Physician, No Primary Referring Unava ilable Stanislav Cervantes Attending Unavailable Renate East Referring Unavailable Donovan Yan Attending Unavailable Care Physician, No Primary Primary Care Unava ilable Care Physician, No Primary Primary Care Unava ilable Stanislav Cervantes Attending Unavailable Renate East Referring Unavailable Care Physician, No Primary Primary Care Unava ilable Care Physician, No Primary Referring Unava ilable Renate East Attending Unavailable Care Physician, No Primary Primary Care Unava ilable Care Physician, No Primary Referring Unava ilable Stanislav Cervantes Attending Unavailable Care Physician, No Primary Primary Care Unava ilable Care Physician, No Primary Referring Unava ilable Marcanthony, Renate Attending Unavailable Care Physician, No Primary Primary Care Unava ilable Care Physician, No Primary Referring Unava ilable Prarandy, Stanislav Attending Unavailable Care Physician, No Primary Primary Care Unava ilable Marcanthony, Renate Attending Unavailable Marcanthony, Renate Referring Unavailable Care Physician, No Primary Primary Care Unava ilable Marcanthony, Renate Attending Unavailable Marcanthony, Renate Referring Unavailable Care Physician, No Primary Primary Care Unava ilable Marcanthony, Renate Attending Unavailable Marcanthony, Renate Referring Unavailable Care Physician, No Primary Primary Care Unava ilable Le, Akash Attending Unavailable Meri, Dimitri Attending Unavailable Care Physician, No Primary Primary Care Unava ilable Marcanthony, Renate Referring Unavailable Care Physician, No Primary Primary Care Unava ilable Marcanthony, Renate Attending Unavailable Care Physician, No Primary Primary Care Unava ilable Marcanthony, Renate Referring Unavailable Marcanthony, Renate Attending Unavailable Care Physician, No Primary Primary Care Unava ilable Prah, Stanislav Referring Unavailable Prarandy, Stanislav Attending Unavailable Care Physician, No Primary Primary Care Unava ilable Marcanthony, Renate Attending Unavailable Marcanthony, Renate Referring Unavailable Unavailable Primary Care Provider UnavailEMMANUEL Urban Attending Unavailable Medications Current Medications Medication Drug Class(es) Dates Sig (Normalized) Sig (Original) amoxicillin 875 mg / clavulanate 125 mg oral tablet (1 source) Penicillin-class Antibacterial Start: 03-26-2024 End: 04-02-2024 take 1 tablet by mouth twice daily amoxicillin-clavu lanate potassium (AUGMENTIN) 875-125 mg per tablet Take 1 tablet by mouth two times a day for 7 days. 14 tablet 03/26/2024 04/02/2024 Active cetirizine hydrochloride 10 mg oral tablet (1 source) Histamine-1 Receptor Antagonist Start: 06-14-2022 End: 07-14-2022 take 1 tablet by mouth once daily cetirizine (ZYRTEC) 10 mg tablet Take 1 tablet by mouth once daily. 30 tablet 0 06/14/2022 07/14/2022 Active Comment on above: Take 1 tablet by albina once daily. ferrous bis-glycinate chelate (IRON BISGLYCINATE CHELATE) 28 mg iron cap (2 sources) take 1 capsule by mouth once daily ferrous bis-glycinate chelate (IRON BISGLYCINATE CHELATE) 28 mg iron cap Take 28 mg by mouth once daily. Active ferrous sulfate 134 mg oral tablet (1 source) Start: 05-22-2023 take 27 mg by mouth three times daily Ferrous Sulfate Active 27 MG PO THREE TIMES A DAY May 22, 2023 12:00am fluticasone propionate 0.05 mg/actuat metered dose nasal spray (7 sources) Corticosteroid Start: 01-13-2023 take 2 spray(s) by mouth once daily fluticasone (FLONASE) 50 mcg/actuation nasal spray Indications: URI, acute Use 2 Sprays in each nostril once daily. Rinse mouth after use. 1 Each 01/13/2023 Active Start: 06-14-2022 End: 06-21-2022 take 2 spray(s) by mouth once daily fluticasone (FLONASE) 50 mcg/actuation nasal spray Use 2 Sprays in each nostril once daily for 7 days. Rinse mouth after use. 1 Each 0 06/14/2022 06/21/2022 Active Start: 08-28-2018 End: 10-30-2021 take 2 spray(s) by mouth once daily fluticasone (FLONASE) 50 mcg/actuation nasal spray Use 2 Sprays in each nostril once daily. Rinse mouth after use. 1 Bottle 0 08/28/2018 10/30/2021 Discontinued (Course of therapy completed) Comment on above: Use 2 Sprays in each nostril once daily. Rinse mouth after use. Use 2 Sprays in each nostril once daily for 7 days. Rinse mouth after use. [place] (Nk) (1 source) Start: 04-03-2023 [place] (Nk) Active April 03, 2023 12:00am ofloxacin 3 mg/ml otic solution (1 source) Quinolone Antimicrobial Start: 06-14-2022 End: 06-21-2022 ofloxacin (FLOXIN) 0.3 % otic solution Use 10 Drops in the left ear once daily for 7 days. 10 mL 0 06/14/2022 06/21/2022 Active Comment on above: Use 10 Drops in the left ear once daily for 7 days. perflutren lipid microspheres 1.3 mL in NaCl (PF) 0.9% 10 mL injection (DEFINITY) (5 sources) Start: 10-30-2021 End: 01-29-2023 perflutren lipid microspheres 1.3 mL in NaCl (PF) 0.9% 10 mL injection (DEFINITY) predniSONE 10 mg oral tablet (7 sources) Start: 04-11-2023 predniSONE (DELTASONE) 10 mg tablet Indications: Pharyngitis, unspecified etiology Take 4 tabs daily for 3 days, then 2 tabs daily for 3 days, then 1 tab daily for 3 days with food. 21 tablet 04/11/2023 Active Start: 01-13-2023 End: 01-18-2023 take 2 tablets by mouth once daily predniSONE (DELTASONE) 20 mg tablet Indications: URI, acute Take 2 tablets by mouth once daily for 5 days. 10 tablet 0 01/13/2023 01/18/2023 Active Start: 12-14-2021 End: 01-03-2023 predniSONE (DELTASONE) 10 mg tablet Take 4 tabs daily for 3 days, then 2 tabs daily for 3 days, then 1 tab daily for 3 days with food. 21 tablet 0 12/14/2021 01/03/2023 Discontinued Comment on above: Take 4 tabs daily fo r 3 days, then 2 tabs daily for 3 days, then 1 tab daily for 3 days with food. Take 2 tablets by mo uth once daily for 5 days. 125 ml sodium chloride 9 mg/ml prefilled syringe (5 sources) Start: 10-30-2021 End: 01-29-2023 sodium chloride 0.9 % (flush) 10 mL (BD POSIFLUSH) tranexamic acid 650 mg oral tablet (5 sources) Antifibrinolytic Agent Start: 04-03-2023 tranexamic acid (LYSTEDA) 650 mg tablet Take 1,300 mg by mouth one time only. Use for 5 days during menstrual cycle 04/03/2023 Active Start: 04-03-2023 take 1300 mg by mout h three times daily Tranexamic Acid Active 1300 MG PO THREE TIMES A DAY 30 April 03, 2023 1:00am begin at onset of menstrual bleeding Completed/Discontinued Medications Medication Drug Class(es) Dates Sig (Normalized) Sig (Original) benzonatate 100 mg oral capsule (1 source) Non-narcotic Antitussive Start: 08-28-2018 End: 10-30-2021 take 2 capsules by mouth every eight hours as needed benzonatate (TESSALON PERLE) 100 mg capsule Take 2 capsules by mouth three times daily as needed. 30 capsule 0 08/28/2018 10/30/2021 Discontinued (Course of therapy completed) Comment on above: Take 2 capsules by m out three times daily as needed. cyclobenzaprine hydrochloride 10 mg oral tablet (1 source) Muscle Relaxant Start: 03-26-2019 End: 10-30-2021 take 1 tablet by mouth three times daily as needed for muscle spasms cyclobenzaprine (FLEXERIL) 10 mg tablet Indications: Neck muscle spasm , Pain in both lower extremities Take 1 tablet by mouth three times daily as needed for Muscle Spasm. 21 tablet 0 03/26/2019 10/30/2021 Discontinued (Course of therapy completed) Comment on above: Take 1 tablet by albina th three times daily as needed for Muscle Spasm. Norethindrone Ac-Eth Estradiol (8 sources) Estrogen Start: 10-06-2019 End: 04-03-2023 take 1 tablet by mouth once daily Norethindrone Ac-Eth Estradiol Discontinued 1 TABLET PO DAILY October 06, 2019 12:00am April 03, 2023 3:20pm Start: 10-06-2019 End: 04-03-2023 take 1 tablet by mouth once daily Norethindrone Ac-Eth Estradiol Discontinued 1 TABLET PO DAILY October 05, 2019 11:00pm April 03, 2023 2:20pm Start: 10-06-2019 take 1 tablet by albina th once daily Norethindrone Ac-Eth Estradiol Active 1 TABLET PO DAILY October 05, 2019 11:00pm Start: 04-15-2019 End: 10-30-2021 take 1 tablet by mouth once daily, then take 0.05 tablet by mouth once Norethindrone Acet-Ethinyl Est (,) 1-20 mg-mcg per tablet Indications: control counseling , Encounter for initial prescription of contraceptive pills Take 1 tablet by mouth once daily. 1 Package 11 04/15/2019 10/30/2021 Discontinued (Course of therapy completed) Comment on above: Take 1 tablet by albina th once daily. metoclopramide 10 mg oral tablet (7 sources) Dopamine-2 Receptor Antagonist Start: 10-06-19 End: 04-03-19 take 10 mg by mouth four times daily Metoclopramide Hcl Discontinued 10 MG PO 4 TIMES DAILY October 06, 2019 12:00am April 03, 2023 3:20pm mupirocin 0.02 mg/mg topical ointment (1 source) RNA Synthetase Inhibitor Antibacterial Start: 11-19-19 End: 01-04-20 mupirocin (BACTROBAN) 2 % ointment Indications: Rash Apply to affected area three times daily. 30 g 0 11/18/2022 01/03/2023 Discontinued Comment on above: Apply to affected ar ea three times daily. triamcinolone acetonide 1 mg/ml topical cream (1 source) Corticosteroid Start: 11-19-19 End: 01-04-20 triamcinolone acetonide (KENALOG) 0.1 % cream Indications: Rash Apply 1 application to affected area three times daily. Apply sparingly to area for rash/itching. 30 g 0 11/18/2022 01/03/2023 Discontinued Comment on above: Apply 1 application to affected area three times daily. Apply sparingly to area for rash/itching. Problems Active Problems Problem Classification Problem Date Documented Date Episodic/Chronic Administrative/socia l admission (1 source) Patient encounter status; Translations: [Encounter for other administrative examinations] Episodic Blindness and vision defects (1 source) Bilateral myopia of eyes; Translations: [Myopia, bilateral] 10-10-2024 Episodic Cardiac dysrhythmias (2 sources) Palpitations; Translations: [Palpitations] Episodic Coagulation and hemorrhagic disorders (11 sources) Thrombocytopenic disorder; Translations: [Thrombocytopenia, unspecified] Onset: 05-04-2023 04-03-2023 Chronic Deficiency and other anemia (3 sources) Pancytopenia; Translations: [Other pancytopenia] 04-27-2023 Chronic Deficiency and other anemia (4 sources) Other pancytopenia; Translations: [Other pancytopenia] Onset: 05-05-2023 04-27-2023 Chronic Deficiency and other anemia (6 sources) Anemia; Translations: [Anemia, unspecified] 03-12-2023 Episodic Deficiency and other anemia (6 sources) Anemia, unspecified; Translations: [Anemia, unspecified] Onset: 04-03-2023 04-03-2023 Episodic Deficiency and other anemia (3 sources) Iron deficiency anemia; Translations: [Iron deficiency anemia, unspecified] 04-27-2023 Episodic Deficiency and other anemia (8 sources) Iron deficiency anemia, unspecified; Translations: [Iron deficiency anemia, unspecified] Onset: 02-03-2024 04-27-2023 Episodic Diseases of white blood cells (11 sources) Leukopenia; Translations: [Decreased white blood cell count, unspecified] Onset: 05-04-2023 04-03-2023 Chronic Other complications of (8 sources) Anemia of ; Translations: [Anemia complicating , unspecified trimester] Onset: 03-17-2014 03-17-2014 Chronic Other ear and sense organ disorders (1 source) Acute otitis externa of left ear; Translations: [Unspecified acute noninfective otitis externa, left ear] Episodic Other eye disorders (1 source) Vitreous floaters; Translations: [Other vitreous opacities, unspecified eye] Chronic Other eye disorders (1 source) Bilateral vitreous floaters; Translations: [Other vitreous opacities, bilateral] 10-10-2024 Chronic Other eye disorders (1 source) Other vitreous opacities, bilateral; Translations: [Vitreous floaters of both eyes] Onset: 10-10-2024 Chronic Other female genital disorders (4 sources) Abnormal uterine bleeding; Translations: [Abnormal uterine and vaginal bleeding, unspecified] 04-03-2023 Chronic Other female genital disorders (6 sources) Abnormal uterine and vaginal bleeding, unspecified; Translations: [Unspecified disorders of menstruation and other abnormal bleeding from female genital tract] Onset: 11-27-2023 04-03-2023 Chronic Other non-traumatic joint disorders (2 sources) Ankle pain; Translations: [Pain in left ankle and joints of left foot] 05-15-2023 Episodic Other screening for suspected conditions (not mental disorders or infectious disease) (1 source) Encounter for screening for malignant neoplasm of cervix; Translations: [Encounter for screening for malignant neoplasm of cervix] Onset: 12-21-2023 Episodic Other upper respiratory infections (5 sources) Pharyngitis; Translations: [Acute pharyngitis, unspecified] Episodic Otitis media and related conditions (1 source) Acute right otitis media; Translations: [Otitis media, unspecified, right ear] 03-26-2024 Episodic Residual codes; unclassified (1 source) Procedure not done; Translations: [Procedure and treatment not carried out, unspecified reason] 05-15-2023 Episodic Residual codes; unclassified (1 source) Edema of left lower limb; Translations: [Localized edema] 05-22-2023 Episodic Past or Other Problems Problem Classification Problem Date Documented Da te Episodic/Chronic Other complications of (2 sources) Anemia; Translations: [Anemia complicating , unspecified trimester] Onset: 05-01-2011 Resolved: 06-17-2011 06-17-2011 Chronic Other complications of (2 sources) Benign gestational thrombocytopenia; Translations: [Other diseases of the blood and blood-forming organs and certain disorders involving the immune mechanism complicating , unspecified trimester] Onset: 05-01-2011 Resolved: 06-17-2011 06-17-2011 Episodic Other complications of (2 sources) High risk ; Translations: [Supervision of high risk , unspecified, unspecified trimester] Onset: 05-01-2011 Resolved: 06-17-2011 06-17-2011 Episodic Other non-traumatic joint disorders (1 source) Pain in left ankle and joints of left foot; Translations: [Pain in left ankle and joints of left foot] Onset: 05-20-2023 Episodic Residual codes; unclassified (2 sources) Localized edema; Translations: [Edema] Onset: 05-27-2023 05-22-2023 Episodic Short gestation; low weight; and growth retardation (8 sources) growth restriction; Translations: [IUGR (intrauterine growth restriction)] Onset: 05-31-2014 03-04-2021 Episodic Results Test Name Value Interpretation Reference Range [facility] ([facility] ) ROSI [id number]) 1990 F Date Time Provider Department 03/26/24 12:00 PM DIXIE MARIWSTR During your visit today, we recorded the following information about you: Temperature Pulse Respiration Blood pressure 98.9 degrees 82/minute 18/minute 121/75 Weight Last Period 58 kg 03/02/24 Dixie Mari APRN.[employer] 03/26/2024 12:28 PM Signed This note was created using NoteWriter. Subjective Rosi Singleton is a 33 year old female. 33 year old female with PMH anemia presetns for illness Acute onset one week ago +scrathcy throat +hoarse voice +cough +non productive Increased feelings of feeling winded and short of breath +post nasal drainage Yesterday developed +right ear pain Denies tobacco usage Mucinex OTC Cough drops Denies relief + ill contacts The history is provided by the patient. No typesetting supervisor was used. Sinus Problem This is a new problem. The current episode started 1 to 4 weeks ago. The problem occurs constantly. The problem has been gradually worsening. Associated symptoms include chills, congestion, coughing, fatigue, headaches and a sore throat. Pertinent negatives include no abdominal pain, anorexia, arthralgias, change in bowel habit, chest pain, diaphoresis, fever, joint swelling, myalgias, nausea, neck pain, numbness, rash, swollen glands, urinary symptoms, vertigo, visual change, vomiting or weakness. Nothing aggravates the symptoms. Treatments tried: see HPI. Ear Pain This is a new problem. The current episode started in the past 7 days. The problem occurs constantly. The problem has been unchanged. Associated symptoms include chills, congestion, coughing, fatigue, headaches and a sore throat. Pertinent negatives include no abdominal pain, anorexia, arthralgias, change in bowel habit, chest pain, diaphoresis, fever, joint swelling, myalgias, nausea, neck pain, numbness, rash, swollen glands, urinary symptoms, vertigo, visual change, vomiting or weakness. Nothing aggravates the symptoms. The treatment provided no relief. PAST MEDICAL HISTORY Diagnosis Date Anemia Fractured bone RIGHT WRIST Gestational thrombocytopenia (HCC) 05/01/2011 Ovarian cyst 2019 PAST SURGICAL HISTORY Procedure Laterality Date NONE ALLERGIES Patient has no known allergies. MEDICATIONS ferrous bis-glycinate chelate (IRON BISGLYCINATE CHELATE) 28 mg iron cap Take 28 mg by mouth once daily. amoxicillin-clavulanat e potassium (AUGMENTIN) 875-125 mg per tablet Take 1 tablet by mouth two times a day for 7 days. predniSONE (DELTASONE) 10 mg tablet Take 4 tabs daily for 3 days, then 2 tabs daily for 3 days, then 1 tab daily for 3 days with food. (Patient not taking: Reported on 03/26/2024) fluticasone (FLONASE) 50 mcg/actuation nasal spray Use [...] Never Smokeless tobacco: Never Vaping Use Vaping status: Never Used Substance Use Topics Alcohol use: No Drug use: No Review of Systems Constitutional: Positive for chills and fatigue. Negative for diaphoresis and fever. HENT: Positive for congestion and sore throat. Eyes: Negative for photophobia, pain, discharge, redness, itching and visual disturbance. Respiratory: Positive for cough. Negative for apnea, choking and chest tightness. Cardiovascular: Negative for chest pain. Gastrointestinal: Negative for abdominal pain, anorexia, change in bowel habit, nausea and vomiting. Musculoskeletal: Negative for arthralgias, joint swelling, myalgias and neck pain. Skin: Negative for rash. Allergic/Immunologic: Negative for environmental allergies, food allergies and immunocompromised state. Neurological: Positive for headaches. Negative for dizziness, vertigo, facial asymmetry, weakness and numbness. Hematological: Negative for adenopathy. Does not bruise/bleed easily. Psychiatric/Behavioral : Negative for agitation and behavioral problems. Objective BP 121/75 Pulse 82 Temp 37.2 ?C (98.9 ?F) Resp 18 Wt 58 kg (127 lb 13.9 oz) LMP 03/02/2024 (Exact Date) SpO2 99% BMI 21.95 kg/m? Physical Exam Vitals and nursing note reviewed. Constitutional: General: She is not in acute distress. Appearance: Normal appearance. She is normal weight. She is not ill-appearing, toxic-appearing or diaphoretic. HENT: Head: Normocephalic and atraumatic. Right Ear: Ear canal and external ear normal. Left Ear: Ear maycol (more content not included)... Normal [facility] Celiac AB,Comprehensiveon ANTIGLIADIN IGA 4 units Normal 0-19 [facility] Comment on above: Result Comment: Nega tive 0 - 19 Weak Positive 20 - 30 Moderate to Strong Positive >30 Performed By: #### L [id number], L100.0100, [id number] #### [facility] [address] [place], [address] ANTIGLIADIN IGG 3 units Normal 0-19 [facility] Comment on above: Result Comment: Nega tive 0 - 19 Weak Positive 20 - 30 Moderate to Strong Positive >30 Performed By: #### L [id number], L100.0100, [id number] #### [facility] [address] [place], [address] ENDOMYSIAL IGA Negative Normal Negative [facility] Comment on above: Performed By: #### L [id number], L100.0100, [id number] #### [facility] [address] [place], [address] IMMUNOGLOB A QN 165 mg/dL Normal 87-352 [facility] Comment on above: Result Comment: Perf ormed at: - [facility] [address] [id number] Block Sorter: Mark Anthony Ley PhD, Phone: [phone] Performed By: #### L [id number], L100.0100, [id number] #### [facility] [address] [place], [address] tTG IGA <2 Normal 0-3 [facility] Comment on above: Result Comment: Nega tive 0 - 3 Weak Positive 4 - 10 Positive >10 Tissue Transglutaminase (tTG) has been identified as the endomysial antigen. Studies have demonstr- ated that endomysial IgA antibodies have over 99% specificity for gluten sensitive enteropathy. Performed By: #### L [id number], L100.0100, [id number] #### [facility] [address] [place], [address] tTG IGG 12 U/mL Abnormal 0-5 [facility] Comment on above: Result Comment: Nega tive 0 - 5 Weak Positive 6 - 9 Positive >9 Performed By: #### L [id number], L100.0100, [id number] #### [facility] [address] [place], [address] CBC W/Diff, Automatedon 11-2 -2023 Absolute Lymph 1.51 X10 3/uL Normal 0.83-4.51 [facility] Comment on above: Performed By: #### L [id number], L100.0100, [id number] #### [facility] [address] [place], [address] Absolute Neut 2.3 X10 3/uL Normal 2.0-7.7 [facility] Comment on above: Performed By: #### L [id number], L100.0100, [id number] #### [facility] [address] [place], [address] Basophils/100 WBC (Bld) 0.5 % Normal 0-1 [facility] Comment on above: Performed By: #### L [id number], L100.0100, [id number] #### [facility] [address] [place], [address] Eosinophils/100 WBC (Bld) 1.2 % Normal 0-5 [facility] Comment on above: Performed By: #### L [id number], L100.0100, [id number] #### [facility] [address] [place], [address] Erythrocyte distribution width (RBC) [Ratio] 11.9 % Normal 11.6-14.6 [facility] Comment on above: Performed By: #### L [id number], L100.0100, [id number] #### [facility] [address] [place], [address] Hematocrit (Bld) [Volume fraction] 35.3 % Low 37-47 [facility] Comment on above: Performed By: #### L [id number], L100.0100, [id number] #### [facility] [address] [place], [address] Hemoglobin (Bld) [Mass/Vol] 11.9 g/dL Low 12.0-15.0 [facility] Comment on above: Performed By: #### L [id number], L100.0100, [id number] #### [facility] [address] [place], [address] IG% 0.200 Normal 0.0-0.9 [facility] Comment on above: Result Comment: IG% - Immature Granulocytes (promyelocytes, myelocytes and metamyelocytes) > 1% indicates that a LEFT SHIFT is Present. Performed By: #### L [id number], L100.0100, [id number] #### [facility] [address] [place], [address] Lymphocytes/100 WBC (Bld) 35.5 % Normal 19-41 [facility] Comment on above: Performed By: #### L [id number], L100.0100, [id number] #### [facility] [address] [place], [address] MCH (RBC) [Entitic mass] 30.5 pg Normal 27.0-32.0 [facility] Comment on above: Performed By: #### L [id number], L100.0100, [id number] #### [facility] [address] [place], [address] MCHC (RBC) [Mass/Vol] 33.7 g/dL Normal 32-36 [facility] Comment on above: Performed By: #### L [id number], L100.0100, [id number] #### [facility] [facility] [address] [place], [address] MCV (RBC) [Entitic vol] 90.5 fL Normal 81-99 [facility] Comment on above: Performed By: #### L 503.6550, L100.0100, L503.6030 #### [facility] [address] [place], [address] Monocytes/100 WBC (Bld) 9.2 % Normal 0-10 [facility] Comment on above: Performed By: #### L 503.6550, L100.0100, L503.6030 #### [facility] [address] [place], [address] Neutrophils/100 WBC (Bld) 53.4 % Normal 47-70 [facility] Comment on above: Performed By: #### L 503.6550, L100.0100, L503.6030 #### [facility] [address] [place], [address] Nucleated RBC (Bld) [#/Vol] 0 10*3/uL Normal 0-5 [facility] Comment on above: Performed By: #### L 503.6550, L100.0100, L503.6030 #### [facility] [address] [place], [address] Platelet mean volume (Bld) [Entitic vol] 8.7 fL Normal 6.2-12.0 [facility] Comment on above: Performed By: #### L 503.6550, L100.0100, L503.6030 #### [facility] [address] [place], [address] Platelets (Bld) [#/Vol] 171 10*3/uL Normal 150-450 [facility] Comment on above: Performed By: #### L 503.6550, L100.0100, L503.6030 #### [facility] [address] [place], [address] RBC (Bld) [#/Vol] 3.90 10*6/uL Low 4.2-5.4 [facility] Comment on above: Performed By: #### L 503.6550, L100.0100, L503.6030 #### [facility] [address] [place], [address] RDW SD 39.4 fl Normal 35.1-43.9 [facility] Comment on above: Performed By: #### L 503.6550, L100.0100, L503.6030 #### [facility] [address] [place], [address] WBC (Bld) [#/Vol] 4.3 10*3/uL Low 4.4-11.0 [facility] Comment on above: Performed By: #### L 503.6550, L100.0100, L503.6030 #### [facility] [address] [place], [address] Comprehensive Metabolic Prof [facility] 02-03-2024 Albumin [Mass/Vol] 4.0 g/dL Normal 3.2-5.0 [facility] Comment on above: Order Comment: 1 Performed By: #### L 503.6550, L100.0100, L503.6030 #### [facility] [address] [place], [address] Albumin/Globulin [Mass ratio] 1.1 {ratio} Normal 0.9-2.4 [facility] Comment on above: Order Comment: 1 Performed By: #### L 503.6550, L100.0100, L503.6030 #### [facility] [address] [place], [address] ALK P 49 U/L Normal 45-117 [facility] Comment on above: Order Comment: 1 Performed By: #### L 503.6550, L100.0100, L503.6030 #### [facility] [address] [place], [address] ALT [Catalytic activity/Vol] 16 U/L Normal 13-56 [facility] Comment on above: Order Comment: 1 Performed By: #### L 503.6550, L100.0100, L503.6030 #### [facility] [address] [place], [address] AST [Catalytic activity/Vol] 13 U/L Low 15-37 [facility] Comment on above: Order Comment: 1 Performed By: #### L 503.6550, L100.0100, L503.6030 #### [facility] [address] [place], [address] Bilirubin [Mass/Vol] 0.40 mg/dL Normal 0.20-1.00 [facility] Comment on above: Order Comment: 1 Result Comment: For patients on eltrombopag therapy, use of Dimension [place] TBIL is not recommended. Performed By: #### L 503.6550, L100.0100, L503.6030 #### [facility] [address] [place], [address] BUN/CRE 15.9 RATIO Normal 10-20 [facility] Comment on above: Order Comment: 1 Performed By: #### L 503.6550, L100.0100, L503.6030 #### [facility] [address] [place], [address] CA,Total 9.1 mg/dL Normal 8.5-10.1 [facility] Comment on above: Order Comment: 1 Performed By: #### L 503.6550, L100.0100, L503.6030 #### [facility] [address] [place], [address] Chloride [Moles/Vol] 107 mmol/L Normal 98-107 [facility] Comment on above: Order Comment: 1 Performed By: #### L 503.6550, L100.0100, L503.6030 #### [facility] [address] [place], [address] CO2 [Moles/Vol] 25.0 mmol/L Normal 21.0-32.0 [facility] Comment on above: Order Comment: 1 Performed By: #### L 503.6550, L100.0100, L503.6030 #### [facility] [address] [place], [address] Creatinine [Mass/Vol] 0.75 mg/dL Normal 0.55-1.02 [facility] Comment on above: Order Comment: 1 Result Comment: The validity of the calculated GFR GFRAA in patients over 70 years has not been determined. Clinical correlation is essential. Performed By: #### L 503.6550, L100.0100, L503.6030 #### [facility] [address] [place], [address] ECRCL 92.13 ml/min Normal [facility] Comment on above: Order Comment: 1 Performed By: #### L 503.6550, L100.0100, L503.6030 #### [facility] [address] [place], [address] EST GFR - AA 113 mL/min Normal >60 [facility] Comment on above: Order Comment: 1 Result Comment: Afri can Tristanian GFR Calc Performed By: #### L 503.6550, L100.0100, L503.6030 #### [facility] [address] [place], [address] GAP 6 Normal 5-15 [facility] Comment on above: Order Comment: 1 Performed By: #### L 503.6550, L100.0100, L503.6030 #### [facility] [address] [place], [address] GFR/1.73 sq M.predicted among non-blacks MDRD (S/P/Bld) [Vol rate/Area] 94 mL/min/{1.73_m2} Normal >60 [facility] Comment on above: Order Comment: 1 Result Comment: Non- GFR Calc Performed By: #### L 503.6550, L100.0100, L503.6030 #### [facility] [address] [place], [address] Globulin (S) [Mass/Vol] 3.5 g/dL Normal 2.2-4.2 [facility] Comment on above: Order Comment: 1 Performed By: #### L 503.6550, L100.0100, L503.6030 #### [facility] [address] [place], [address] Glucose [Mass/Vol] 100 mg/dL Normal 74-106 [facility] Comment on above: Order Comment: 1 Result Comment: Fast ing Glucose result from 100 to 125 mg/dL suggests IMPAIRED HOMEOSTASIS per A.D.A. criteria. Performed By: #### L 503.6550, L100.0100, L503.6030 #### [facility] [address] [place], [address] Potassium [Moles/Vol] 3.7 mmol/L Normal 3.5-5.1 [facility] Comment on above: Order Comment: 1 Performed By: #### L 503.6550, L100.0100, L503.6030 #### [facility] [address] [place], [address] Sodium [Moles/Vol] 137 mmol/L Normal 136-145 [facility] Comment on above: Order Comment: 1 Performed By: #### L 503.6550, L100.0100, L503.6030 #### [facility] [address] [place], [address] T PROT 7.5 g/dL Normal 6.4-8.2 [facility] Comment on above: Order Comment: 1 Performed By: #### L 503.6550, L100.0100, L503.6030 #### [facility] [address] [place], [address] Urea nitrogen [Mass/Vol] 12 mg/dL Normal 7-18 [facility] Comment on above: Order Comment: 1 Performed By: #### L 503.6550, L100.0100, L503.6030 #### [facility] [address] [place], [address] Ferritinon 02-03-2024 Ferritin [Mass/Vol] 13 ng/mL Normal 8-252 [facility] Comment on above: Order Comment: 1 Performed By: #### L 503.6550, L100.0100, L503.6030 #### [facility] [address] [place], [address] Iron+Iron Binding Capacityon 02-03-2024 Iron [Mass/Vol] 265 ug/dL High 50-170 [facility] Comment on above: Order Comment: 1 Performed By: #### L 503.6550, L100.0100, L503.6030 #### [facility] [address] [place], [address] IRON SATURATION 86.3 High 15.0-55.0 [facility] Comment on above: Order Comment: 1 Performed By: #### L 503.6550, L100.0100, L503.6030 #### [facility] [address] [place], [address] TIBC 307 ug/dL Normal 250-450 [facility] Comment on above: Order Comment: 1 Performed By: #### L 503.6550, L100.0100, L503.6030 #### [facility] [address] [place], [address] LDHon 02-03-2024 LDH 141 U/L Normal 84-246 [facility] Comment on above: Order Comment: 1 Performed By: #### L 503.6550, L100.0100, L503.6030 #### [facility] [address] [place], [address] Oncology Visit Reporton 01-08 Oncology Visit Report [facility] [place] [facility] [address] [place] [address] OFFICE VISIT Date of Service: 02/03/24 1606 MR#: [id number] Acct: [id number] Name: ROSI SINGLETON Rep #: [id number] : 1990 From: Stanislav Cervantes MD Age/Sex: 33/F [place] [facility] [place] Status: Signed HPI Subjective Date of Service 02/03/24 Chief Complaint F/u for Iron deficiency. History of Present Illness 33-year-old woman with history of menorrhagia was found to have fluctuating WBC, platelets and low hemoglobin hence referred for further evaluation and management. She is now taking iron supplement tid. She had blood work done and comes for follow up. [facility] Medical History Syncopal episodes Anemia Family History Father Pancreatic cancer Diabetes Blood clot in vein Daughter Type 1 diabetes Other Myocardial infarction Social History adopted: No household members: children housing: apartment number of children: 2 Smoking Status: Never smoker Electronic Cigarette Use: not used second hand exposure: No alcohol intake: never substance use type: does not use jaci/jain: Seventh Day Nondenominational seatbelt use: always do you feel safe at home: Yes additional social history: single Female Reproductive History Menstrual Ab induced: 0 Ab spontaneous: 0 Ectopics: 0 Intake Vital Signs 07/27/23 15:58 02/03/24 16:06 Height 5 ft 4 in 5 ft 4 in Weight: 57.238 kg BMI 21.7 BP 119/76 Blood Pressure Location Lt brachial Position Sitting Respiration 18 Pulse 77 Pulse Source Monitor Temp 98.7 F Temperature Source Temporal Artery Pulse Oximetry (%) 99 Oxygen Delivery Method room air Intake Is patient in pain?: No Allergies No Known Allergies Allergy (Verified 02/03/24 16:09) Medications ???Medication ???Instructions ???Recorded ???Confirmed ???Type ferrous sulfate 27 mg iron tablet 27 mg PO TID 05/22/23 02/03/24 History tranexamic acid 650 mg tablet 1,300 mg (2 x 650 mg) PO TID 5 01/28/24 02/03/24 Rx days #30 tabs Central Venous Access Central Venous Access: No Laboratory Results 02/03/24 07/27/23 04/27/23 15:10 15:05 16:50 WBC 4.3 L 5.2 5.2 Hgb 11.9 L 12.0 10.4 L Hct 35.3 L 34.6 L 32.7 L Plt Count 171 142 L 157 Iron 265 H 93 73 TIBC 307 329 329 Iron Saturation 86.3 H 28.3 22.2 Ferritin 13 15 6 L Exam Physical Exam Const alert, oriented x3 and no apparent distress Coding Level of Care Code Off vis,est,level 3 Exam Problem Focused Diagnoses Iron deficiency anemia, unspecified iron deficiency anemia type D50.9 Iron deficiency anemia type: unspecified iron deficiency Assessment and Plan Assessment and Plan (1) Iron deficiency anemia: Status: Resolved Qualifiers: Iron deficiency anemia type: unspecified iron deficiency Qualified Code(s): D50.9 - Iron deficiency anemia, unspecified Comment: Ferritin was 13 today, Hgb 12. Anemia resolved. On Oral iron 27mg tid, iron level 265 today. Since she has improved, she can decrease Iron supplements. Plan: To change to Iron tabs 27mg daily with vitamin C, on empty stomach. RTC 12 months with iron profile. Plan Details Follow Up: 12 Months 02/03/24 1626 Date Stanislav Rahman Signature: Date (if applicable) CC: Normal [facility] Vitamin B12on 02-03-2024 Cobalamin (Vitamin B12) [Mass/Vol] 494 pg/mL Normal 211-911 [facility] Comment on above: Performed By: #### L 503.6550, L100.0100, L503.6030 #### [facility] [address] [place], [address] Color Paste Mixing Supervisor Office Visit Reporton 12-29-2023 Color Paste Mixing Supervisor Office Visit Report [facility] [address], [address] [place] [address] OFFICE VISIT Date of Service: 12/29/23 MR#: [id number] Acct: [id number] Name: ROSI SINGLETON Rep #: [id number] : 1990 Provider: Dr. Renate segura MD Age/Sex: 33/F Location: [facility] Status: Signed Intake Vital Signs 11/27/23 12:00 12/29/23 14:48 Height 5 ft 4 in 5 ft 4 in Weight: 127 lb BMI 21.8 BP 136/78 H Intake Visit Reasons: Colposcopy Chief Complaint: colposcopy Cost Specialist Required: No Is patient in pain?: Yes (some lower left abdominal pain - comes and goes) Pain scale (1-10): 4 Allergies No Known Allergies Allergy (Verified 12/29/23 14:50) Medications ???Medication ???Instructions ???Recorded ???Confirmed ???Type ferrous sulfate 27 mg iron tablet 27 mg PO TID 05/22/23 12/29/23 History tranexamic acid 650 mg tablet 1,300 mg (2 x 650 mg) PO TID 5 11/27/23 12/29/23 Rx days #30 tabs Is last menstrual period known: Yes Last Menstrual Period: 12/18/23 Post menopausal: No Patient : No : No PFSH PFSH Medical History Syncopal episodes Anemia Family History Father Pancreatic cancer Diabetes Blood clot in vein Daughter Type 1 diabetes Other Myocardial infarction Social History adopted: No household members: children housing: apartment number of children: 2 Smoking Status: Never smoker Electronic Cigarette Use: not used second hand exposure: No alcohol intake: never substance use type: does not use jaci/jain: Seventh Day Nondenominational seatbelt use: always do you feel safe at home: Yes additional social history: single History 2 Elective abortions 0 Hx Para 2 Spontaneous abortions 0 Hx # Term Pregnancies 1 Ectopic pregnancies 0 Hx # Pregnancies 1 Multiple births 0 # of living children 2 Past Pregnancies Del. Date Name GA/Weeks Outcome Route Bth Weight Infant Gen Labor Lgth Anesthesia Del Locatn Provider FOB Unknown Angela Unknown Brenda HPI Colposcopy Details: ROSI SINGLETON is a 33 year old who presents for follow up colposcopy. Female Reproductive History Last Menstrual Period: 12/18/23 ROS Const Constitutional: Reports system reviewed and no additional complaints, except as documented; Denies chills, fever(s), weight gain or weight loss GI GI: Reports as per HPI; Denies abdominal pain, bloating, constipation, cramping, nausea or vomiting : Reports as per HPI; Denies urinary frequency, urinary incontinence, urinary urgency, vaginal discharge or vaginal dryness Exam Const General: cooperative, healthy appearing, comfortable and well developed Orientation: alert HENMT Head: normal to inspection Resp Effort Inspection: normal respiratory effort GI Inspection: normal to inspection and non-distended Palpation: soft, no hepatosplenomegaly and no guarding External Female Exam: normal external appearance and normal appearance of the urethra Urethra: normal appearance of the urethra Speculum Exam - Vagina: normal appearance of the vagina, normal vaginal discharge and no lesions Office Procedures Colposcopy Colposcopy Reason for colposcopy: positive HR HPV types Consent Signed: Yes Time out performed: Yes Time: 15:19 Acetowhite epithelium (cervix): 3 o'clock, 4 o'clock, 7 o'clock, 8 o'clock and 9 o'clock Mosaicism (cervix): none Abnormal vessels (cervix): none Biopsies (cervix): none Acetowhite epithelium (vagina): none Punctation (vagina): none Mosaicism (vagina): none Biopsies (vagina): none Cervix+upper/adj vagina: Yes biopsy Details: adequate colposcopy dilute acetic acid applied and entire SCJ visualized with above noted findings seen. patient tolerated procedure well without complications. Coding Level of Care Code Attention Sales And Marketing Representative Diagnoses HPV test positive CPT Codes Colposcopy - Cervix+upper/adj vagina: Yes (79443) Assessment and Plan Assessment and Plan (1) HPV test positive: Status: Acute Comment: unsatisfactory pap, gagan I on colp, repeat pap hpv in 1 year 12/31 Orders: Orders Colposcopy Today R87.619 - Unspecified abnormal cytological findings in specimens from cervix uteri 12/29/23 1521 Date Renate De La Torre Signature: Date (if applicable) CC: Normal [facility] PAP IG HPV APTIMA 16/18,45on 12-03-2023 ADEQ Comment Normal . [facility] Comment on above: Order Comment: Speci men Comment: [id number] Comment: No. of containers..01 ThinPrep Vial Result Comment: Spec imen processed and examined, but unsatisfactory for evaluation of epithelial abnormality because of excessive lubricant. Performed By: #### L 503.6550, L100.0100, L503.6030 #### [facility] [address] [place], [place], [id number] COMM . Normal . [facility] Comment on above: Order Comment: Speci men Comment: [id number] Comment: No. of containers..01 ThinPrep Vial Performed By: #### L 503.6550, L100.0100, L503.6030 #### [facility] [address] [place], [place], [address] COMMENT Comment Normal . [facility] Comment on above: Order Comment: Speci men Comment: [id number] Comment: No. of containers..01 ThinPrep Vial Result Comment: This liquid based ThinPrep(R) pap test was screened with the use of an image guided system. Performed By: #### L 503.6550, L100.0100, L503.6030 #### [facility] [address] [place], [place], [address] DIAG Comment Normal . [facility] Comment on above: Order Comment: Speci men Comment: [id number] Comment: No. of containers..01 ThinPrep Vial Result Comment: UNSA TISFACTORY FOR EVALUATION. Performed By: #### L 503.6550, L100.0100, L503.6030 #### [facility] [address] [place], [address] HPV APTIMA, HR Positive Abnormal Negative [facility] Comment on above: Order Comment: Speci men Comment: [id number] Comment: No. of containers..01 ThinPrep Vial Result Comment: This nucleic acid amplification test detects fourteen high- risk HPV types (16,18,31,33,35,39,45,51,52,56,58,59,66,68) without differentiation. Performed By: #### L 503.6550, L100.0100, L503.6030 #### [facility] [address] [place], [place], [address] HPV Amber Rfx Comment Normal . [facility] Comment on above: Order Comment: Speci men Comment: [id number] Comment: No. of containers..01 ThinPrep Vial Result Comment: Crit erdeidra not met, HPV Genotype not performed. Performed at: [facility] - [facility] [id number] Block Sorter: Yaima Edmonds MD, Phone: [phone] Performed at: [facility] [address] [place] [id number] Block Sorter: Chidi Connell MD, Phone: [phone] Performed at: =[facility] - [facility] [address] [id number] Block Sorter: Yaima Edmonds MD, Phone: [phone] Performed By: #### L 503.6550, L100.0100, L503.6030 #### [facility] [address] [place], [place], [address] PAPSMR Comment Normal . [facility] Comment on above: Order Comment: Speci men Comment: [id number] Comment: No. of containers..01 ThinPrep Vial Result Comment: The Pap smear is a screening test designed to aid in the detection of premalignant and malignant conditions of the uterine cervix. It is not a diagnostic procedure and should not be used as the sole means of detecting cervical cancer. Both false-positive and false-negative reports do occur. Performed By: #### L 503.6550, L100.0100, L503.6030 #### [facility] [address] [place], [place], [id number] PERFORM Comment Normal . [facility] Comment on above: Order Comment: Speci men Comment: [id number] Comment: No. of containers..01 ThinPrep Vial Result Comment: Jayda Vega, Parts Counter Representative (ASCP) Performed By: #### L 503.6550, L100.0100, L503.6030 #### [facility] [address] [place], [place], [address] QC REV Comment Normal . [facility] Comment on above: Order Comment: Speci men Comment: [id number] Comment: No. of containers..01 ThinPrep Vial Result Comment: Luciano Bailey, Supervisory Parts Counter Representative (ASCP) Performed By: #### L 503.6550, L100.0100, L503.6030 #### [facility] [address] [place], [address] RECOMM Comment Normal . [facility] Comment on above: Order Comment: Speci men Comment: [id number] Comment: No. of containers..01 ThinPrep Vial Result Comment: Sugg est follow up as clinically appropriate. Performed By: #### L 503.6550, L100.0100, L503.6030 #### [facility] [address] [place], [address] Color Paste Mixing Supervisor Office Visit Reporton 11-27-2023 Color Paste Mixing Supervisor Office Visit Report [facility] [address], [address] [place] [address] OFFICE VISIT Date of Service: 11/27/23 MR#: [id number] Acct: [id number] Name: ROSI SINGLETON Rep #: [id number] : 1990 Provider: Dr. 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) Cost Specialist Required: No Is patient in pain?: No Feel stressed/tense/nervous /anxious/difficulty sleeping: not at all Allergies No Known Allergies Allergy (Verified 11/27/23 11:52) Medications ???Medication ???Instructions ???Recorded ???Confirmed ???Type ferrous sulfate 27 mg iron tablet 27 mg PO TID 05/22/23 11/27/23 History tranexamic acid 650 mg tablet 1,300 mg (2 x 650 mg) PO TID 5 05/28/23 11/27/23 Rx days #30 tabs Is last menstrual period known: Yes Last Menstrual Period: 11/21/23 Post menopausal: No Patient : No : No PFSH Medical History Syncopal episodes Anemia Family History Father Pancreatic cancer Diabetes Blood clot in vein Daughter Type 1 diabetes Other Myocardial infarction Social History adopted: No household members: children housing: apartment number of children: 2 Smoking Status: Never smoker Electronic Cigarette Use: not used second hand exposure: No alcohol intake: never substance use type: does not use jaci/jain: Seventh Day Nondenominational seatbelt use: always do you feel safe at home: Yes additional social history: single History 2 Elective abortions 0 Hx Para 2 Spontaneous abortions 0 Hx # Term Pregnancies 1 Ectopic pregnancies 0 Hx # Pregnancies 1 Multiple births 0 # of living children 2 Past Pregnancies Del. Date Name GA/Weeks Outcome Route Bth Weight Gen Labor Lgth Anesthesia Del Locatn Provider FOB Unknown Angela Unknown Brenda HPI Encounter for routine gynecological examination Details: ROSI SINGLETON is a 33 year old who presents for annual exam. Last PAP: Unsure of last PAP History of abnormal PAP: no severe Other preventative health care screenings: [facility] for PCP. Has been getting routine bloodwork done ordered by Dr. Cervantes. Female Reproductive History Last Menstrual Period: 11/21/23 Cycle Length: 21-35 Bleeding Duration: 5 Frequency of changing protection: every few hours Questions: metorrhagia: No, sexually active: Yes, dyspareunia: No and PCB: No Menopausal Symptoms: No hot flashes, No night sweats, No weight change, No mood changes, No difficulty concentrating, No sleep problems and No change in libido ROS Const Constitutional: Reports as per HPI; Denies fatigue, increased appetite, poor appetite, night sweats, weight gain or weight loss Cardio Card: Denies chest pain Resp Resp: Denies cough or dyspnea GI GI: Reports as per HPI; Denies abdominal pain, bloating, constipation, nausea or vomiting : Reports as per HPI and other; Denies difficulty voiding, dysuria, hematuria, hot flashes, nipple discharge, pelvic pain, prolapse symptoms, urinary frequency, urinary incontinence, urinary urgency, vaginal discharge, vaginal dryness, vaginal odor or vaginal pruritus Skin Skin/Breast: Denies changing lesions, breast mass, breast pain, breast skin changes or nipple discharge Psych Psych: Denies anxiety, change in libido, depression or difficulty concentrating Exam Const General: cooperative, healthy appearing, comfortable, no acute distress, well developed and well groomed HENMT Head: normal to inspection and normocephalic Ears: hearing grossly normal bilaterally and external ears normal Nose: external nose normal Face and sinus: normal facial exam Neck Neck: normal visual inspection, full ROM and no lymphadenopathy Thyroid: thyroid normal Chest Chest palpation inspection: normal inspection of the chest Breast inspection: normal inspection of the breasts and normal inspection of the axillae Breast palpation: normal palpation of the breasts, normal palpation of the axillae and no axillary lymphadenopathy Resp Effort Inspection: normal respiratory effort GI Inspection: normal to inspection and non-distended Palpation: sof (more content not included)... Normal [facility] CBC W/Diff, Automatedon 05-2 0-2023 Absolute Lymph 1.77 X10 3/uL Normal 0.83-4.51 [facility] Comment on above: Performed By: #### L 503.6550, L100.0100, L503.6030 #### [facility] [address] [place], [place], [id number] Absolute Neut 2.9 X10 3/uL Normal 2.0-7.7 [facility] Comment on above: Performed By: #### L 503.6550, L100.0100, L503.6030 #### [facility] [address] [place], [address] Basophils/100 WBC (Bld) 0.6 % Normal 0-1 [facility] Comment on above: Performed By: #### L 503.6550, L100.0100, L503.6030 #### [facility] [address] [place], [address] Eosinophils/100 WBC (Bld) 1.3 % Normal 0-5 [facility] Comment on above: Performed By: #### L 503.6550, L100.0100, L503.6030 #### [facility] [address] [place], [address] Erythrocyte distribution width (RBC) [Ratio] 12.3 % Normal 11.6-14.6 [facility] Comment on above: Performed By: #### L 503.6550, L100.0100, L503.6030 #### [facility] [address] [place], [address] Hematocrit (Bld) [Volume fraction] 34.6 % Low 37-47 [facility] Comment on above: Performed By: #### L 503.6550, L100.0100, L503.6030 #### [facility] [address] [place], [address] Hemoglobin (Bld) [Mass/Vol] 12.0 g/dL Normal 12.0-15.0 [facility] Comment on above: Performed By: #### L 503.6550, L100.0100, L503.6030 #### [facility] [address] [place], [address] IG% 0.200 Normal 0.0-0.9 [facility] Comment on above: Result Comment: IG% - Immature Granulocytes (promyelocytes, myelocytes and metamyelocytes) > 1% indicates that a LEFT SHIFT is Present. Performed By: #### L 503.6550, L100.0100, L503.6030 #### [facility] [address] [place], [address] Lymphocytes/100 WBC (Bld) 34.0 % Normal 19-41 [facility] Comment on above: Performed By: #### L 503.6550, L100.0100, L503.6030 #### [facility] [address] [place], [address] MCH (RBC) [Entitic mass] 30.6 pg Normal 27.0-32.0 [facility] Comment on above: Performed By: #### L 503.6550, L100.0100, L503.6030 #### [facility] [address] [place], [address] MCHC (RBC) [Mass/Vol] 34.7 g/dL Normal 32-36 [facility] Comment on above: Performed By: #### L 503.6550, L100.0100, L503.6030 #### [facility] [address] [place], [address] MCV (RBC) [Entitic vol] 88.3 fL Normal 81-99 [facility] Comment on above: Performed By: #### L 503.6550, L100.0100, L503.6030 #### [facility] [address] [place], [address] Monocytes/100 WBC (Bld) 8.1 % Normal 0-10 [facility] Comment on above: Performed By: #### L 503.6550, L100.0100, L503.6030 #### [facility] [address] [place], [address] Neutrophils/100 WBC (Bld) 55.8 % Normal 47-70 [facility] Comment on above: Performed By: #### L 503.6550, L100.0100, L503.6030 #### [facility] [address] [place], [address] Nucleated RBC (Bld) [#/Vol] 0 10*3/uL Normal 0-5 [facility] Comment on above: Performed By: #### L 503.6550, L100.0100, L503.6030 #### [facility] [address] [place], [address] Platelet mean volume (Bld) [Entitic vol] 9.3 fL Normal 6.2-12.0 [facility] Comment on above: Performed By: #### L 503.6550, L100.0100, L503.6030 #### [facility] [address] [place], [address] Platelets (Bld) [#/Vol] 142 10*3/uL Low 150-450 [facility] Comment on above: Performed By: #### L 503.6550, L100.0100, L503.6030 #### [facility] [address] [place], [address] RBC (Bld) [#/Vol] 3.92 10*6/uL Low 4.2-5.4 [facility] Comment on above: Performed By: #### L 503.6550, L100.0100, L503.6030 #### [facility] [address] [place], [address] RDW SD 39.5 fl Normal 35.1-43.9 [facility] Comment on above: Performed By: #### L 503.6550, L100.0100, L503.6030 #### [facility] [address] [place], [address] WBC (Bld) [#/Vol] 5.2 10*3/uL Normal 4.4-11.0 [facility] Comment on above: Performed By: #### L 503.6550, L100.0100, L503.6030 #### [facility] [address] [place], [address] CRPon 07-27-2023 C-REACTIVE PROT < 2.90 Normal 0.0-3.0 [facility] Comment on above: Order Comment: 1 Result Comment: C-Re active Protein (CRP) provides useful information for the diagnosis, therapy and monitoring of inflammatory processes and associated diseases. For the evaluation of Relative Risk for Cardiovascular Disease, a High Sensitivity CRP (HSCRP) should be ordered. Performed By: #### L 100.0100, L101.9900, L503.0105, L500.4050, L501.2300, L501.5200, L501.6710, L503.6030, L503.6550, L504.2610, L506.0250, L3410.2400 #### [facility] [address] [place], [address] Comprehensive Metabolic Prof ilon 07-27-2023 Albumin [Mass/Vol] 4.2 g/dL Normal 3.2-5.0 [facility] Comment on above: Order Comment: 1 Performed By: #### L 503.6550, L100.0100, L503.6030 #### [facility] [address] [place], [address] Albumin/Globulin [Mass ratio] 1.2 {ratio} Normal 0.9-2.4 [facility] Comment on above: Order Comment: 1 Performed By: #### L 503.6550, L100.0100, L503.6030 #### [facility] [address] [place], [address] ALK P 47 U/L Normal 45-117 [facility] Comment on above: Order Comment: 1 Performed By: #### L 503.6550, L100.0100, L503.6030 #### [facility] [address] [place], [address] ALT [Catalytic activity/Vol] 23 U/L Normal 13-56 [facility] Comment on above: Order Comment: 1 Performed By: #### L 503.6550, L100.0100, L503.6030 #### [facility] [address] [place], [address] AST [Catalytic activity/Vol] 19 U/L Normal 15-37 [facility] Comment on above: Order Comment: 1 Performed By: #### L 503.6550, L100.0100, L503.6030 #### [facility] [address] [place], [address] Bilirubin [Mass/Vol] 0.30 mg/dL Normal 0.20-1.00 [facility] Comment on above: Order Comment: 1 Result Comment: For patients on eltrombopag therapy, use of Dimension [place] TBIL is not recommended. Performed By: #### L 503.6550, L100.0100, L503.6030 #### [facility] [address] [place], [address] BUN/CRE 12.0 RATIO Normal 10-20 [facility] Comment on above: Order Comment: 1 Performed By: #### L 503.6550, L100.0100, L503.6030 #### [facility] [address] [place], [address] CA,Total 9.2 mg/dL Normal 8.5-10.1 [facility] Comment on above: Order Comment: 1 Performed By: #### L 503.6550, L100.0100, L503.6030 #### [facility] [address] [place], [address] Chloride [Moles/Vol] 104 mmol/L Normal 98-107 [facility] Comment on above: Order Comment: 1 Performed By: #### L 503.6550, L100.0100, L503.6030 #### [facility] [address] [place], [address] CO2 [Moles/Vol] 28.0 mmol/L Normal 21.0-32.0 [facility] Comment on above: Order Comment: 1 Performed By: #### L 503.6550, L100.0100, L503.6030 #### [facility] [address] [place], [address] Creatinine [Mass/Vol] 0.83 mg/dL Normal 0.55-1.02 [facility] Comment on above: Order Comment: 1 Result Comment: The validity of the calculated GFR GFRAA in patients over 70 years has not been determined. Clinical correlation is essential. Performed By: #### L 503.6550, L100.0100, L503.6030 #### [facility] [address] [place], [address] ECRCL 83.25 ml/min Normal [facility] Comment on above: Order Comment: 1 Performed By: #### L 503.6550, L100.0100, L503.6030 #### [facility] [address] [place], [address] EST GFR - AA 102 mL/min Normal >60 [facility] Comment on above: Order Comment: 1 Result Comment: Afri can Tristanian GFR Calc Performed By: #### L 503.6550, L100.0100, L503.6030 #### [facility] [address] [place], [address] GAP 4 Low 5-15 [facility] Comment on above: Order Comment: 1 Performed By: #### L 503.6550, L100.0100, L503.6030 #### [facility] [address] [place], [address] GFR/1.73 sq M.predicted among non-blacks MDRD (S/P/Bld) [Vol rate/Area] 84 mL/min/{1.73_m2} Normal >60 [facility] Comment on above: Order Comment: 1 Result Comment: Non- GFR Calc Performed By: #### L 503.6550, L100.0100, L503.6030 #### [facility] [address] [place], [address] Globulin (S) [Mass/Vol] 3.5 g/dL Normal 2.2-4.2 [facility] Comment on above: Order Comment: 1 Performed By: #### L 503.6550, L100.0100, L503.6030 #### [facility] [address] [place], [address] Glucose [Mass/Vol] 87 mg/dL Normal 74-106 [facility] Comment on above: Order Comment: 1 Performed By: #### L 503.6550, L100.0100, L503.6030 #### [facility] [address] [place], [address] Potassium [Moles/Vol] 3.6 mmol/L Normal 3.5-5.1 [facility] Comment on above: Order Comment: 1 Performed By: #### L 503.6550, L100.0100, L503.6030 #### [facility] [address] [place], [address] Sodium [Moles/Vol] 136 mmol/L Normal 136-145 [facility] Comment on above: Order Comment: 1 Performed By: #### L 503.6550, L100.0100, L503.6030 #### [facility] [address] [place], [address] T PROT 7.7 g/dL Normal 6.4-8.2 [facility] Comment on above: Order Comment: 1 Performed By: #### L 503.6550, L100.0100, L503.6030 #### [facility] [address] [place], [address] Urea nitrogen [Mass/Vol] 10 mg/dL Normal 7-18 [facility] Comment on above: Order Comment: 1 Performed By: #### L 503.6550, L100.0100, L503.6030 #### [facility] [address] [place], [place], [id number] Erythrocyte Sed Rateon 07-26 SED RATE 2 mm/hr Normal 0-30 [facility] Comment on above: Performed By: #### L 503.6550, L100.0100, L503.6030 #### [facility] [address] [place], [address] (593) Ferritinon 07-27-2023 Ferritin [Mass/Vol] 15 ng/mL Normal 8-252 [facility] Comment on above: Order Comment: 1 Performed By: #### L 100.0100, L101.9900, L503.0105, L500.4050, L501.2300, L501.5200, L501.6710, L503.6030, L503.6550, L504.2610, L506.0250, L3410.2400 #### [facility] [address] [place], [address] Iron+Iron Binding Capacityon 07-27-2023 Iron [Mass/Vol] 93 ug/dL Normal 50-170 [facility] Comment on above: Order Comment: 1 Performed By: #### L 100.0100, L101.9900, L503.0105, L500.4050, L501.2300, L501.5200, L501.6710, L503.6030, L503.6550, L504.2610, L506.0250, L3410.2400 #### [facility] [address] [place], [address] IRON SATURATION 28.3 Normal 15.0-55.0 [facility] Comment on above: Order Comment: 1 Performed By: #### L 100.0100, L101.9900, L503.0105, L500.4050, L501.2300, L501.5200, L501.6710, L503.6030, L503.6550, L504.2610, L506.0250, L3410.2400 #### [facility] [address] [place], [address] TIBC 329 ug/dL Normal 250-450 [facility] Comment on above: Order Comment: 1 Performed By: #### L 100.0100, L101.9900, L503.0105, L500.4050, L501.2300, L501.5200, L501.6710, L503.6030, L503.6550, L504.2610, L506.0250, L3410.2400 #### [facility] [address] [place], [place], [id number] (439) LDHon 07-27-2023 LDH 148 U/L Normal 84-246 [facility] Comment on above: Order Comment: 1 Performed By: #### L 100.0100, L101.9900, L503.0105, L500.4050, L501.2300, L501.5200, L501.6710, L503.6030, L503.6550, L504.2610, L506.0250, L3410.2400 #### [facility] [address] [place], [place], [id number] ([phone]) Magnesiumon 07-27-2023 Magnesium [Mass/Vol] 2.0 mg/dL Normal 1.6-2.6 [facility] Comment on above: Order Comment: 1 Performed By: #### L 100.0100, L101.9900, L503.0105, L500.4050, L501.2300, L501.5200, L501.6710, L503.6030, L503.6550, L504.2610, L506.0250, L3410.2400 #### [facility] [address] [place], [address] Oncology Visit Reporton 07-08 Oncology Visit Report [facility] [place] [address] OFFICE VISIT Date of Service: 07/27/23 1554 MR#: [id number] Acct: [id number] Name: ROSI SINGLETON Rep #: [id number] : 1990 From: Stanislav Cervantes MD Age/Sex: 33/F [place] [facility] [place]: Signed HPI Subjective Date of Service 07/27/23 Chief Complaint F/u for Iron deficiency anemia. History of Present Illness 33-year-old woman with history of menorrhagia was found to have fluctuating WBC, platelets and low hemoglobin hence referred for further evaluation and management. She is now taking iron supplement. She had blood work done and comes for follow up. [facility] Medical History Syncopal episodes Anemia Family History Father Pancreatic cancer Diabetes Blood clot in vein Daughter Type 1 diabetes Other Myocardial infarction Social History adopted: No household members: children housing: apartment number of children: 2 Smoking Status: Never smoker Electronic Cigarette Use: not used second hand exposure: No alcohol intake: never substance use type: does not use jaci/jain: Seventh Day Nondenominational seatbelt use: always do you feel safe at home: Yes Female Reproductive History Menstrual Ab induced: 0 Ab spontaneous: 0 Ectopics: 0 Intake Vital Signs 05/04/23 15:57 07/27/23 15:55 07/27/23 15:58 Height 5 ft 4 in 5 ft 4 in 5 ft 4 in Weight: 58.769 kg BMI 22.2 BP 112/76 Blood Pressure Location Lt brachial Position Sitting Respiration 18 Pulse 71 Pulse Source Monitor Temp 98.4 F Temperature Source Temporal Artery Pulse Oximetry (%) 100 Oxygen Delivery Method room air Intake Is patient in pain?: No Allergies No Known Allergies Allergy (Verified 07/27/23 15:58) Medications ???Medication ???Instructions ???Recorded ???Confirmed ???Type ferrous sulfate 27 mg iron tablet 27 mg PO TID 05/22/23 07/27/23 History tranexamic acid 650 mg tablet 1,300 mg (2 x 650 mg) PO TID 5 05/28/23 07/27/23 Rx days #30 tabs Central Venous Access Central Venous Access: No Laboratory Results 07/27/23 04/27/23 15:05 16:50 WBC 5.2 5.2 Hgb 12.0 10.4 L Hct 34.6 L 32.7 L Plt Count 142 L 157 Iron 93 73 TIBC 329 329 Iron Saturation 28.3 22.2 Ferritin 15 6 L Exam Physical Exam Const alert, oriented x3 and no apparent distress Coding Level of Care Code Off vis,est,level 3 Exam Problem Focused Diagnoses Iron deficiency anemia, unspecified iron deficiency anemia type D50.9 Iron deficiency anemia type: unspecified iron deficiency Assessment and Plan Assessment and Plan (1) Iron deficiency anemia: Status: Resolved Qualifiers: Iron deficiency anemia type: unspecified iron deficiency Qualified Code(s): D50.9 - Iron deficiency anemia, unspecified Comment: Ferritin was 15 today, Hgb 12. Anemia resolved. On Oral iron 27mg daily Plan: To continue Iron tabs 27mg tid with vitamin C, on empty stomach. RTC 6 months with iron profile. Plan Details Follow Up: 6 Months 07/27/23 1618 Date Stanislav Rahman Signature: Date (if applicable) CC: Normal [facility] Phosphoruson 07-27-2023 Phosphate [Mass/Vol] 3.5 mg/dL Normal 2.5-4.9 [facility] Comment on above: Order Comment: 1 Performed By: #### L 100.0100, L101.9900, L503.0105, L500.4050, L501.2300, L501.5200, L501.6710, L503.6030, L503.6550, L504.2610, L506.0250, L3410.2400 #### [facility] [address] [place], [address] Retic Panelon 07-27-2023 IM RET FRACTION 7.60 Normal 3.00-15.90 [facility] Comment on above: Performed By: #### L 503.6550, L100.0100, L503.6030 #### [facility] [address] [place], [address] RET-HE 36.3 pg High 30-35 [facility] Comment on above: Performed By: #### L 503.6550, L100.0100, L503.6030 #### [facility] [address] [place], [address] Retic Count 1.17 Normal 0.5-1.5 [facility] Comment on above: Performed By: #### L 503.6550, L100.0100, L503.6030 #### [facility] [address] [place], [address] Vitamin B12on 07-27-2023 Cobalamin (Vitamin B12) [Mass/Vol] 484 pg/mL Normal 211-911 [facility] Comment on above: Performed By: #### L 503.6550, L100.0100, L503.6030 #### [facility] [address] [place], [address] Color Paste Mixing Supervisor Office Visit Reporton 05-22-2023 Color Paste Mixing Supervisor Office Visit Report [facility] [address] [place] [id number] OFFICE VISIT Date of Service: 05/22/23 MR#: [id number] Acct: [id number] Name: ROSI SINGLETON Rep #: [id number] : 1990 Provider: Dr. Renate segura MD Age/Sex: 33/F Location: [place] Status: Signed Intake Vital Signs 04/03/23 14:27 05/15/23 18:31 05/22/23 11:12 05/22/23 11:17 Height 5 ft 4 in 5 ft 4 in 5 ft 4 in 5 ft 4 in Weight: 131 lb 4 oz BMI 22.5 BP 110/74 Intake Visit Reasons: 6 wk FU Chief Complaint: 6 Week F/u Cost Specialist Required: No Is patient in pain?: No Allergies No Known Allergies Allergy (Verified 05/22/23 11:11) Medications tranexamic acid 650 mg tablet 1,300 mg (2 x 650 mg) PO TID 5 days #30 tabs 04/03/23 [Rx Confirmed 05/22/23] ferrous sulfate 27 mg iron tablet 27 mg PO TID 05/22/23 [History Confirmed 05/22/23] Is last menstrual period known: Yes Last Menstrual Period: 05/07/23 Post menopausal: No Patient : No : No PFSH Medical History Anemia Syncopal episodes Family History Father Pancreatic cancer Diabetes Blood clot in vein Daughter Type 1 diabetes Other Myocardial infarction Social History adopted: No household members: children housing: apartment number of children: 2 Smoking Status: Never smoker Electronic Cigarette Use: not used second hand exposure: No alcohol intake: never substance use type: does not use jaci/jain: Seventh Day Nondenominational seatbelt use: always do you feel safe at home: Yes HPI 6 wk FU Details: ROSI SINGLETON is a 33 year old who presents for follow up. she had an reduction in bleeding she didn't have any crmaping or pain with bleeding. she has repeat blood work ordered soon for anemia. she is fine taking the medicine and wants to stay on it. she does ahve new edema in her left lower leg, ankle only no calf tenderness Female Reproductive History Last Menstrual Period: 05/07/23 History 2 Elective abortions 0 Hx Para 2 Spontaneous abortions 0 Hx # Term Pregnancies 1 Ectopic pregnancies 0 Hx # Pregnancies 1 Multiple births 0 # of living children 2 ROS Const Constitutional: Reports fatigue; Denies fever(s), headache(s), increased appetite, poor appetite, weight gain or weight loss GI GI: Reports as per HPI; Denies abdominal pain, constipation, nausea or vomiting : Reports as per HPI; Denies difficulty voiding, dysuria, hematuria, pelvic pain, urinary frequency, urinary incontinence, urinary hesitancy, urinary urgency, vaginal discharge, vaginal dryness, vaginal odor, vaginal pruritus or other Exam Const General: cooperative, healthy appearing, comfortable, no acute distress and well developed Orientation: alert HENMT Head: normal to inspection and normocephalic Ears: hearing grossly normal bilaterally and external ears normal Nose: external nose normal and nares normal Face and sinus: normal facial exam Neck Neck: normal visual inspection, no lymphadenopathy and trachea midline Thyroid: thyroid normal Resp Effort Inspection: normal respiratory effort Musc Other: gross motor intact no deficits, full bilateral strength Skin General: no rashes or lesions noted Neuro Motor: muscle tone normal throughout Coding Level of Care Code Off vis,est,level 3 Diagnoses Leg edema, left R60.0 Iron deficiency anemia, unspecified iron deficiency anemia type D50.9 Iron deficiency anemia type: unspecified iron deficiency Abnormal uterine bleeding N93.9 Assessment and Plan Assessment and Plan (1) Leg edema, left: Status: Acute Comment: doppler ordered (2) Iron deficiency anemia: Status: Acute Qualifiers: Iron deficiency anemia type: unspecified iron deficiency Qualified Code(s): D50.9 - Iron deficiency anemia, unspecified Comment: Ferritin was 6 on 04/27/2023. On Oral iron 27mg daily (3) Abnormal uterine bleeding: Status: Acute Comment: lysteda. Plan Problem list updated and treatment plans were reviewed with the patient and relevant educational handouts given. See problem list details for specific plan information. 05/22/23 1135 Date Renate East MD Cosigncarlos Signature: Date (if applicable) CC: Normal [facility] Venous Duplex US, Unilateral on 05-22-2023 Venous Duplex US, Unilateral [facility] [address] [place] [address] Venous Duplex US, Unilateral 05/22/23 1506 MR#: [id number] Acct: [id number] Name: ROSI SINGLETON Rep #: [id number] : 1990 33 From: Donovan Yan MD Attending Dr: Dr. Renate East MD Status: REG CLI Ordering Dr: Renate East MD Date: 05/22/23 Location: [facility] Sex: F C Admitted: Reason For Study: Left leg edema Procedure LEFT This is a venous duplex using B-mode, color GSV is normal. flow and spectral Doppler. CFV is compressible, spontaneous, phasic, Exam performed in department. competent, and demonstrates normal A preliminary report was called and/or faxed augmentation. to Dr. East. FV is compressible, spontaneous, phasic, competent and demonstrates normal augmentation. POP V is compressible, spontaneous, phasic, competent and demonstrates normal augmentation. T/P Trunk is compressible. PTV is compressible. LT PerV is compressible. VL/Venous Duplex US, Unilateral Interpretation Summary There is no evidence of left lower extremity deep vein thrombosis. Left great saphenous vein appears patent and compressible segmentally. Ordering Physician: Renate East Performed By: Valentina Mulligan RVT 05/22/23 1548 Date Donovan Yan MD CC: Dr. Renate East MD; No Primary Care Physician Date Dictated: 05/22/23 1506 Date Transcribed: 05/22/23 1548 Technical Coordinator: Signed Normal [facility] Ankle min 3 Viewson 05-15-19 Ankle min 3 Views [facility] Imaging Services [address] [place] [address] Ankle min 3 Views MR#: [id number] Acct: [id number] Name: ROSI SINGLETON Rep #: [id number] : 1990 F 33 From: Naresh Ramsey PCP: Care Physician,No Primary Status: PRE ER Study: Ankle min 3 Views Date of Exam: 05/15/23 Exam# [id number] Ordering Dr: Provider,Ed P. [id number] EXAM: XR LEFT ANKLE COMPLETE, 3 OR MORE VIEWS CLINICAL INDICATION: PAIN AND SWELLING TECHNIQUE: Frontal, lateral and oblique views of the left ankle. COMPARISON: No relevant prior studies available. FINDINGS: BONES/JOINTS: Unremarkable. No acute fracture. No subluxation. Normal alignment. Preservation of the joint space. No sclerotic or destructive changes observed. SOFT TISSUES: Unremarkable. No soft tissue swelling or gas. No radiopaque foreign body. RAD/Ankle min 3 Views IMPRESSION: Negative left ankle x-rays. Electronically Signed: Naresh Goldstein MD at 18:56 EST Reading Location ID and State: [facility] / [place] , Service support , CC: ED PHYSICIAN PROVIDER; No Primary Care Physician Technical Coordinator: Signed Normal [facility] Emergency Department Summary on 05-15-2023 Emergency Department Summary [facility] Medical Records Department [address] [place] [address] Emergency Department Summary 05/15/23 MR#: [id number] Acct: [id number] Name: ROSI SINGLETON Rep #: [id number] : 1990 33 From: Akash Marie PCP: Care Physician,No Primary Status:DEP ER Location: ED HPI History of Present Illness Chief Complaint: Lower Extremity Injury Narrative Narrative: Patient presenting today due to pain to her left ankle that she has had since Thursday. She reports that her daughter was giving her a massage to her foot and she began to notice pain to her ankle with the massage. She reports that she was at work today and started to notice increased pain to the area and wanted to come in for an x-ray. She denies any trauma to the ankle, fevers, and chills. PFSH PFSH Medical History Anemia Syncopal episodes Home Medications tranexamic acid 650 mg tablet 1,300 mg (2 x 650 mg) PO TID 5 days #30 tabs 04/03/23 [Rx Last Taken Unknown] Allergy/AdvReac Type Severity Reaction Status Date / Time No Known Allergies Allergy Verified 05/15/23 18:32 Family History Father Pancreatic cancer Diabetes Blood clot in vein Daughter Type 1 diabetes Other Myocardial infarction Social History adopted: No household members: children housing: apartment number of children: 2 Smoking Status: Never smoker Electronic Cigarette Use: not used second hand exposure: No alcohol intake: never substance use type: does not use jaci/jain: Seventh Day Nondenominational seatbelt use: always do you feel safe at home: Yes ROS ROS ED Constitutional Constitutional ED: Denies chills or fever(s) Cardiovascular Cardiovascular: Denies chest pain Respiratory/Chest Respiratory/Chest: Denies cough or dyspnea Gastrointestinal Gastrointestinal: Denies abdominal pain, nausea or vomiting Musculoskeletal Musculoskeletal: Reports arthralgias Integumentary Denies rash Neurologic Neurologic: Denies paresthesias EXAM Physical Exam Const Vital Signs: 05/15/23 18:31 05/15/23 18:33 05/15/23 19:27 Temperature 98 F 97.3 F L Temperature Source Temporal Pulse Rate 76 88 64 Respiratory Rate 16 14 16 Blood Pressure 133/90 H 124/64 H 124/76 H Blood Pressure Mean 104 84 92 Pulse Ox 100 97 99 Oxygen Delivery Method Room Air Room Air Positive well nourished, well developed and no apparent distress General Appearance ED: well developed HEENT Reports normocephalic and head/scalp atraumatic Mouth ED: Yes moist mucous membranes normal Eyes PERRL and EOMs intact bilaterally Neck full ROM and supple Chest Wall inspection of chest normal Resp normal respiratory effort and clear to auscultation bilaterally Cardio regular rate and regular rhythm GI soft to palpation, non-tender, non-distended and no masses Back/Spine normal ROM and normal to inspection Extremity normal to inspection and full ROM Extremity Narrative: No pain to palpation to the lateral and medial malleolus, no swelling, no signs of septic joint, minimal pain to the ATFL, right DP pulse 2+, good capillary refill, sensation intact. Neuro oriented x3, CN's II-XII intact bilaterally, moves all extremities, no focal motor deficits and no sensory deficits noted Sensorium / Orientation: awake and alert Psych mental status grossly normal and thought process normal Skin no rashes or lesions noted and no wounds Physical Exam Const Vital Signs: 05/15/23 18:31 05/15/23 18:33 05/15/23 19:27 Temperature 98 F 97.3 F L Temperature Source Temporal Pulse Rate 76 88 64 Respiratory Rate 16 14 16 Blood Pressure 133/90 H 124/64 H 124/76 H Blood Pressure Mean 104 84 92 Pulse Ox 100 97 99 Oxygen Delivery Method Room Air Room Air MDM MDM MDM Narrative Medical decision making narrative: Patient presenting today with pain to her left ankle that she has had since Thursday after her daughter gave her a foot massage and put pressure on the area. No injury. She is able to ambulate without difficulty. Examination is unremarkable, she does not have any significant pain to palpation, no swelling, full range of motion to the ankle, no signs of septic joint, no cellulitis. X-ray was obtained and is negative for any acute findings. RICE instructions given, she can alternate Tylenol and ibuprofen for pain as needed. She was given an Abelardo wrap, she is to follow-up with her PCP and will be discharged home in stable condition. She is comfortable with plan. Radiography X-Ray: Read by ED Physician Diagnostic Testing: Clinical Impression(s) from Imaging St (more content not included)... Normal [facility] Oncology Visit Reporton 04-10 Oncology Visit Report [facility] [place] [address] OFFICE VISIT Date of Service: 05/04/23 1553 MR#: [id number] Acct: [id number] Name: ROSI SINGLETON Rep #: [id number] : 1990 From: Stanislav Cervantes MD Age/Sex: 32/F [place] [facility] [place]: Signed HPI Subjective Date of Service 05/04/23 Chief Complaint F/u for Leukopenia/thrombocyto penia/Anemia History of Present Illness 32-year-old woman with history of menorrhagia was found to have fluctuating WBC, platelets and low hemoglobin hence referred for further evaluation and management. She has taken iron for iron deficiency anemia but did not tolerate that so currently not taking anything. She had blood work done and comes for follow up. [facility] Medical History Anemia Syncopal episodes Family History Father Pancreatic cancer Diabetes Blood clot in vein Daughter Type 1 diabetes Other Myocardial infarction Social History adopted: No household members: children housing: apartment number of children: 2 Smoking Status: Never smoker Electronic Cigarette Use: not used second hand exposure: No alcohol intake: never substance use type: does not use jaci/jain: Seventh Day Nondenominational seatbelt use: always do you feel safe at home: Yes Female Reproductive History Menstrual Ab induced: 0 Ab spontaneous: 0 Ectopics: 0 Intake Vital Signs 04/27/23 16:04 05/04/23 15:54 05/04/23 15:57 Height 5 ft 4 in 5 ft 4 in 5 ft 4 in Weight: 60.384 kg BMI 22.8 BP 111/70 Blood Pressure Location Lt brachial Position Sitting Respiration 18 Pulse 100 Pulse Source Monitor Temp 98.9 F Temperature Source Temporal Artery Pulse Oximetry (%) 100 Oxygen Delivery Method room air Intake Is patient in pain?: No Allergies No Known Allergies Allergy (Verified 05/04/23 15:57) Medications tranexamic acid 650 mg tablet 1,300 mg (2 x 650 mg) PO TID 5 days #30 tabs 04/03/23 [Rx Confirmed 05/04/23] Central Venous Access Central Venous Access: No Laboratory Tests 04/27/23 16:50 WBC 5.2 Hgb 10.4 L Hct 32.7 L Plt Count 157 Iron 73 TIBC 329 Iron Saturation 22.2 Ferritin 6 L Exam Physical Exam Const alert, oriented x3 and no apparent distress Coding Level of Care Code Off vis,est,level 3 Exam Problem Focused Diagnoses Iron deficiency anemia, unspecified iron deficiency anemia type D50.9 Iron deficiency anemia type: unspecified iron deficiency Thrombocytopenia D69.6 Leukopenia D72.819 Assessment and Plan Assessment and Plan (1) Iron deficiency anemia: Status: Acute Qualifiers: Iron deficiency anemia type: unspecified iron deficiency Qualified Code(s): D50.9 - Iron deficiency anemia, unspecified Comment: Ferritin was 6 on 04/27/2023. On Oral iron 27mg daily Plan: To do Iron tabs 27mg tid with vitamin C, on empty stomach. RTC 3 months with iron profile. (2) Thrombocytopenia: Status: Resolved Plan: To do observation. (3) Leukopenia: Status: Resolved Comment: hematology consult Plan: To do observation Plan Details Follow Up: 3 Months 05/04/23 1626 Date Stanislav Rahman Signature: Date (if applicable) CC: Normal [facility] Celiac Disease Profileon ENDOMYSIAL IGA Negative Normal Negative [facility] Comment on above: Performed By: #### L 100.0100, B882-1 #### [facility] [address] [place], [address] IMMUNOGLOB A QN 176 mg/dL Normal 87-352 [facility] Comment on above: Result Comment: Perf ormed at: - [facility] [address] [id number] Block Sorter: Mark Anthony Ley PhD, Phone: [phone] Performed By: #### L 100.0100, B882-1 #### [facility] [address] [place], [address] tTG IGA <2 Normal 0-3 [facility] Comment on above: Result Comment: Nega tive 0 - 3 Weak Positive 4 - 10 Positive >10 Tissue Transglutaminase (tTG) has been identified as the endomysial antigen. Studies have demonstr- ated that endomysial IgA antibodies have over 99% specificity for gluten sensitive enteropathy. Performed By: #### L 100.0100, B882-1 #### [facility] [address] [place], [address] Erythropoietinon 04-29-2023 ERYTHROPOIETIN 17.9 mIU/mL Normal 2.6-18.5 [facility] Comment on above: Result Comment: Cellrox DxI 800 Immunoassay System Values obtained with different assay methods or kits cannot be used interchangeably. Results cannot be interpreted as absolute evidence of the presence or absence of malignant disease. Performed at: [address] [id number] Block Sorter: Mark Anthony Ley PhD, Phone: [phone] Performed By: #### L 503.6550, L100.0100, V624.2281 #### [facility] [address] [place], [address] Stool Occult Blood iFOBon STOB Negative Normal [facility] Comment on above: Performed By: #### L 503.6550, L100.0100, L521.8735 #### [facility] [address] [place], [address] Stool gastrointestinal hemog lobin detection by immunologic methodOrdered By: Stanislav Cervantes on 04-28-2023 Lower GI hemoglobin IA Ql (Stl) [facility] Lower GI hemoglobin IA Ql (Stl) [facility] Absolute lymphocyte countOrd ered By: Stanislav Cervantes on 04-27-2023 Lymphocytes Auto (Unsp spec) [#/Vol] 1.63 10*3/uL 0.83-4.51 [facility] Automated lymphocyte count a s percentage of total leukocytesOrdered By: Stanislav Cervantes on 04-27-2023 Lymphocytes/100 WBC Auto (Unsp spec) 31.3 % 19-41 [facility] Basophil percentageOrdered B y: Stanislav Cervantes on 04-27-2023 Basophil percentage 2.8 mg/dL 2.5-4.9 [facility] Basophils/100 WBC (Bld) 0.8 % 0-1 [facility] Bilirubin [Mass/Vol] 0.20 mg/dL 0.20-1.00 [facility] Comment on above: For patients on eltr ombopag therapy, use of Dimension [place] TBIL is not recommended. Chloride [Moles/Vol] 110 mmol/L 98-107 [facility] Eosinophils/100 WBC (Bld) 1.2 % 0-5 [facility] Glucose [Mass/Vol] 87 mg/dL 74-106 [facility] Hemoglobin (Bld) [Mass/Vol] 10.4 g/dL 12.0-15.0 [facility] LDH [Catalytic activity/Vol] 148 U/L 84-246 [facility] Monocytes/100 WBC (Bld) 9.0 % 0-10 [facility] Neutrophils (Bld) [#/Vol] 3.0 10*3/uL 2.0-7.7 [facility] Neutrophils/100 WBC (Bld) 57.3 % 47-70 [facility] Potassium [Moles/Vol] 3.8 mmol/L 3.5-5.1 [facility] Protein [Mass/Vol] 7.1 g/dL 6.4-8.2 [facility] Sodium [Moles/Vol] 138 mmol/L 136-145 [facility] WBC (Bld) [#/Vol] 5.2 10*3/uL 4.4-11.0 [facility] CBC W/Diff, Automatedon 04-09 Absolute Lymph 1.63 X10 3/uL Normal 0.83-4.51 [facility] Comment on above: Performed By: #### L 100.0100, L101.9900, L503.0105, L500.4050, L501.2300, L501.5200, L501.6710, L503.6030, L503.6550, L504.2610, L506.0250, L3410.2400 #### [facility] [address] [place], [address] Absolute Neut 3.0 X10 3/uL Normal 2.0-7.7 [facility] Comment on above: Performed By: #### L 100.0100, L101.9900, L503.0105, L500.4050, L501.2300, L501.5200, L501.6710, L503.6030, L503.6550, L504.2610, L506.0250, L3410.2400 #### [facility] [address] [place], [address] Basophils/100 WBC (Bld) 0.8 % Normal 0-1 [facility] Comment on above: Performed By: #### L 100.0100, L101.9900, L503.0105, L500.4050, L501.2300, L501.5200, L501.6710, L503.6030, L503.6550, L504.2610, L506.0250, L3410.2400 #### [facility] [address] [place], [address] Eosinophils/100 WBC (Bld) 1.2 % Normal 0-5 [facility] Comment on above: Performed By: #### L 100.0100, L101.9900, L503.0105, L500.4050, L501.2300, L501.5200, L501.6710, L503.6030, L503.6550, L504.2610, L506.0250, L3410.2400 #### [facility] [address] [place], [place], [phone] (374) Erythrocyte distribution width (RBC) [Ratio] 11.6 % Normal 11.6-14.6 [facility] Comment on above: Performed By: #### L 100.0100, L101.9900, L503.0105, L500.4050, L501.2300, L501.5200, L501.6710, L503.6030, L503.6550, L504.2610, L506.0250, L3410.2400 #### [facility] [address] [place], [address] Hematocrit (Bld) [Volume fraction] 32.7 % Low 37-47 [facility] Comment on above: Performed By: #### L 100.0100, L101.9900, L503.0105, L500.4050, L501.2300, L501.5200, L501.6710, L503.6030, L503.6550, L504.2610, L506.0250, L3410.2400 #### [facility] [address] [place], [place], [phone] (350) Hemoglobin (Bld) [Mass/Vol] 10.4 g/dL Low 12.0-15.0 [facility] Comment on above: Performed By: #### L 100.0100, L101.9900, L503.0105, L500.4050, L501.2300, L501.5200, L501.6710, L503.6030, L503.6550, L504.2610, L506.0250, L3410.2400 #### [facility] [address] [place], [address] IG% 0.400 Normal 0.0-0.9 [facility] Comment on above: Result Comment: IG% - Immature Granulocytes (promyelocytes, myelocytes and metamyelocytes) > 1% indicates that a LEFT SHIFT is Present. Performed By: #### L 100.0100, L101.9900, L503.0105, L500.4050, L501.2300, L501.5200, L501.6710, L503.6030, L503.6550, L504.2610, L506.0250, L3410.2400 #### [facility] [address] [place], [address] Lymphocytes/100 WBC (Bld) 31.3 % Normal 19-41 [facility] Comment on above: Performed By: #### L 100.0100, L101.9900, L503.0105, L500.4050, L501.2300, L501.5200, L501.6710, L503.6030, L503.6550, L504.2610, L506.0250, L3410.2400 #### [facility] [address] [facility] [place], [address] MCH (RBC) [Entitic mass] 28.8 pg Normal 27.0-32.0 [facility] Comment on above: Performed By: #### L 100.0100, L101.9900, L503.0105, L500.4050, L501.2300, L501.5200, L501.6710, L503.6030, L503.6550, L504.2610, L506.0250, L3410.2400 #### [facility] [address] [facility] [place], [address] MCHC (RBC) [Mass/Vol] 31.8 g/dL Low 32-36 [facility] Comment on above: Performed By: #### L 100.0100, L101.9900, L503.0105, L500.4050, L501.2300, L501.5200, L501.6710, L503.6030, L503.6550, L504.2610, L506.0250, L3410.2400 #### [facility] [address] [place], [address] MCV (RBC) [Entitic vol] 90.6 fL Normal 81-99 [facility] Comment on above: Performed By: #### L 100.0100, L101.9900, L503.0105, L500.4050, L501.2300, L501.5200, L501.6710, L503.6030, L503.6550, L504.2610, L506.0250, L3410.2400 #### [facility] [address] [place], [address] Monocytes/100 WBC (Bld) 9.0 % Normal 0-10 [facility] Comment on above: Performed By: #### L 100.0100, L101.9900, L503.0105, L500.4050, L501.2300, L501.5200, L501.6710, L503.6030, L503.6550, L504.2610, L506.0250, L3410.2400 #### [facility] [address] [facility] [place], [address] Neutrophils/100 WBC (Bld) 57.3 % Normal 47-70 [facility] Comment on above: Performed By: #### L 100.0100, L101.9900, L503.0105, L500.4050, L501.2300, L501.5200, L501.6710, L503.6030, L503.6550, L504.2610, L506.0250, L3410.2400 #### [facility] [address] [facility] [place], [address] Nucleated RBC (Bld) [#/Vol] 0 10*3/uL Normal 0-5 [facility] Comment on above: Performed By: #### L 100.0100, L101.9900, L503.0105, L500.4050, L501.2300, L501.5200, L501.6710, L503.6030, L503.6550, L504.2610, L506.0250, L3410.2400 #### [facility] [address] [place], [address] Platelet mean volume (Bld) [Entitic vol] 9.4 fL Normal 6.2-12.0 [facility] Comment on above: Performed By: #### L 100.0100, L101.9900, L503.0105, L500.4050, L501.2300, L501.5200, L501.6710, L503.6030, L503.6550, L504.2610, L506.0250, L3410.2400 #### [facility] [address] [place], [address] Platelets (Bld) [#/Vol] 157 10*3/uL Normal 150-450 [facility] Comment on above: Performed By: #### L 100.0100, L101.9900, L503.0105, L500.4050, L501.2300, L501.5200, L501.6710, L503.6030, L503.6550, L504.2610, L506.0250, L3410.2400 #### [facility] [address] [place], [address] RBC (Bld) [#/Vol] 3.61 10*6/uL Low 4.2-5.4 [facility] Comment on above: Performed By: #### L 100.0100, L101.9900, L503.0105, L500.4050, L501.2300, L501.5200, L501.6710, L503.6030, L503.6550, L504.2610, L506.0250, L3410.2400 #### [facility] [address] [place], [address] RDW SD 38.6 fl Normal 35.1-43.9 [facility] Comment on above: Performed By: #### L 100.0100, L101.9900, L503.0105, L500.4050, L501.2300, L501.5200, L501.6710, L503.6030, L503.6550, L504.2610, L506.0250, L3410.2400 #### [facility] [address] [place], [place], [address] WBC (Bld) [#/Vol] 5.2 10*3/uL Normal 4.4-11.0 [facility] Comment on above: Performed By: #### L 100.0100, L101.9900, L503.0105, L500.4050, L501.2300, L501.5200, L501.6710, L503.6030, L503.6550, L504.2610, L506.0250, L3410.2400 #### [facility] [address] [facility] [place], [place], [id number] CRPon 04-27-2023 C-REACTIVE PROT < 2.90 Normal 0.0-3.0 [facility] Comment on above: Order Comment: #[id number] CELIAC W REFLEX SER/RT1Y Result Comment: C-Re active Protein (CRP) provides useful information for the diagnosis, therapy and monitoring of inflammatory processes and associated diseases. For the evaluation of Relative Risk for Cardiovascular Disease, a High Sensitivity CRP (HSCRP) should be ordered. Performed By: #### L 100.0100, B882-1 #### [facility] [address] [facility] [place], [address] Comprehensive Metabolic Prof ilon 04-27-2023 Albumin [Mass/Vol] 3.5 g/dL Normal 3.2-5.0 [facility] Comment on above: Order Comment: #[id number] CELIAC W REFLEX SER/RT 1 Y Performed By: #### L 100.0100, L101.9900, L503.0105, L500.4050, L501.2300, L501.5200, L501.6710, L503.6030, L503.6550, L504.2610, L506.0250, L3410.2400 #### [facility] [address] [place], [place], [id number] Albumin/Globulin [Mass ratio] 1.0 {ratio} Normal 0.9-2.4 [facility] Comment on above: Order Comment: #[id number] CELIAC W REFLEX SER/RT 1 Y Performed By: #### L 100.0100, L101.9900, L503.0105, L500.4050, L501.2300, L501.5200, L501.6710, L503.6030, L503.6550, L504.2610, L506.0250, L3410.2400 #### [facility] [address] [place], [place], [id number] ALK P 45 U/L Normal 45-117 [facility] Comment on above: Order Comment: #16 [id number] CELIAC W REFLEX SER/RT 1 Y Performed By: #### L 100.0100, L101.9900, L503.0105, L500.4050, L501.2300, L501.5200, L501.6710, L503.6030, L503.6550, L504.2610, L506.0250, L3410.2400 #### [facility] [address] [place], [address] ALT [Catalytic activity/Vol] 30 U/L Normal 13-56 [facility] Comment on above: Order Comment: #16 [id number] CELIAC W REFLEX SER/RT 1 Y Performed By: #### L 100.0100, L101.9900, L503.0105, L500.4050, L501.2300, L501.5200, L501.6710, L503.6030, L503.6550, L504.2610, L506.0250, L3410.2400 #### [facility] [address] [place], [address] AST [Catalytic activity/Vol] 22 U/L Normal 15-37 [facility] Comment on above: Order Comment: #16 [id number] CELIAC W REFLEX SER/RT 1 Y Performed By: #### L 100.0100, L101.9900, L503.0105, L500.4050, L501.2300, L501.5200, L501.6710, L503.6030, L503.6550, L504.2610, L506.0250, L3410.2400 #### [facility] [address] [place], [place], [phone] (011) Bilirubin [Mass/Vol] 0.20 mg/dL Normal 0.20-1.00 [facility] Comment on above: Order Comment: #[id number] CELIAC W REFLEX SER/RT 1 Y Result Comment: For patients on eltrombopag therapy, use of Dimension [place] TBIL is not recommended. Performed By: #### L 100.0100, L101.9900, L503.0105, L500.4050, L501.2300, L501.5200, L501.6710, L503.6030, L503.6550, L504.2610, L506.0250, L3410.2400 #### [facility] [address] [place], [place], [phone] (951) BUN/CRE 17.9 RATIO Normal 10-20 [facility] Comment on above: Order Comment: #16 [id number] CELIAC W REFLEX SER/RT 1 Y Performed By: #### L 100.0100, L101.9900, L503.0105, L500.4050, L501.2300, L501.5200, L501.6710, L503.6030, L503.6550, L504.2610, L506.0250, L3410.2400 #### [facility] [address] [place], [place], [id number] (194) CA,Total 8.3 mg/dL Low 8.5-10.1 [facility] Comment on above: Order Comment: #16 [id number] CELIAC W REFLEX SER/RT 1 Y Performed By: #### L 100.0100, L101.9900, L503.0105, L500.4050, L501.2300, L501.5200, L501.6710, L503.6030, L503.6550, L504.2610, L506.0250, L3410.2400 #### [facility] [address] [place], [address] Chloride [Moles/Vol] 110 mmol/L High 98-107 [facility] Comment on above: Order Comment: #16 [id number] CELIAC W REFLEX SER/RT 1 Y Performed By: #### L 100.0100, L101.9900, L503.0105, L500.4050, L501.2300, L501.5200, L501.6710, L503.6030, L503.6550, L504.2610, L506.0250, L3410.2400 #### [facility] [address] [place], [place], [phone] (876) CO2 [Moles/Vol] 24.0 mmol/L Normal 21.0-32.0 [facility] Comment on above: Order Comment: #16 [id number] CELIAC W REFLEX SER/RT 1 Y Performed By: #### L 100.0100, L101.9900, L503.0105, L500.4050, L501.2300, L501.5200, L501.6710, L503.6030, L503.6550, L504.2610, L506.0250, L3410.2400 #### [facility] [address] [place], [place], [phone] (440) Creatinine [Mass/Vol] 0.73 mg/dL Normal 0.55-1.02 [facility] Comment on above: Order Comment: #16 [id number] CELIAC W REFLEX SER/RT 1 Y Result Comment: The validity of the calculated GFR GFRAA in patients over 70 years has not been determined. Clinical correlation is essential. Performed By: #### L 100.0100, L101.9900, L503.0105, L500.4050, L501.2300, L501.5200, L501.6710, L503.6030, L503.6550, L504.2610, L506.0250, L3410.2400 #### [facility] [address] [place], [place], [id number] EST GFR - AA 119 mL/min Normal >60 [facility] Comment on above: Order Comment: #[id number] CELIAC W REFLEX SER/RT 1 Y Result Comment: Afri can Tristanian GFR Calc Performed By: #### L 100.0100, L101.9900, L503.0105, L500.4050, L501.2300, L501.5200, L501.6710, L503.6030, L503.6550, L504.2610, L506.0250, L3410.2400 #### [facility] [address] [place], [place], [id number] GAP 4 Low 5-15 [facility] Comment on above: Order Comment: #[id number] CELIAC W REFLEX SER/RT 1 Y Performed By: #### L 100.0100, L101.9900, L503.0105, L500.4050, L501.2300, L501.5200, L501.6710, L503.6030, L503.6550, L504.2610, L506.0250, L3410.2400 #### [facility] [address] [place], [place], [address] GFR/1.73 sq M.predicted among non-blacks MDRD (S/P/Bld) [Vol rate/Area] 98 mL/min/{1.73_m2} Normal >60 [facility] Comment on above: Order Comment: #16 [id number] CELIAC W REFLEX SER/RT 1 Y Result Comment: Non- GFR Calc Performed By: #### L 100.0100, L101.9900, L503.0105, L500.4050, L501.2300, L501.5200, L501.6710, L503.6030, L503.6550, L504.2610, L506.0250, L3410.2400 #### [facility] [address] [facility] [place], [address] Globulin (S) [Mass/Vol] 3.6 g/dL Normal 2.2-4.2 [facility] Comment on above: Order Comment: #[id number] CELIAC W REFLEX SER/RT 1 Y Performed By: #### L 100.0100, L101.9900, L503.0105, L500.4050, L501.2300, L501.5200, L501.6710, L503.6030, L503.6550, L504.2610, L506.0250, L3410.2400 #### [facility] [address] [place], [address] Glucose [Mass/Vol] 87 mg/dL Normal 74-106 [facility] Comment on above: Order Comment: #16 [id number] CELIAC W REFLEX SER/RT 1 Y Performed By: #### L 100.0100, L101.9900, L503.0105, L500.4050, L501.2300, L501.5200, L501.6710, L503.6030, L503.6550, L504.2610, L506.0250, L3410.2400 #### [facility] [address] [facility] [place], [address] Potassium [Moles/Vol] 3.8 mmol/L Normal 3.5-5.1 [facility] Comment on above: Order Comment: #16 [id number] CELIAC W REFLEX SER/RT 1 Y Performed By: #### L 100.0100, L101.9900, L503.0105, L500.4050, L501.2300, L501.5200, L501.6710, L503.6030, L503.6550, L504.2610, L506.0250, L3410.2400 #### [facility] [address] [place], [place], [address] Sodium [Moles/Vol] 138 mmol/L Normal 136-145 [facility] Comment on above: Order Comment: #16 [id number] CELIAC W REFLEX SER/RT 1 Y Performed By: #### L 100.0100, L101.9900, L503.0105, L500.4050, L501.2300, L501.5200, L501.6710, L503.6030, L503.6550, L504.2610, L506.0250, L3410.2400 #### [facility] [address] [place], [address] T PROT 7.1 g/dL Normal 6.4-8.2 [facility] Comment on above: Order Comment: #16 [id number] CELIAC W REFLEX SER/RT 1 Y Performed By: #### L 100.0100, L101.9900, L503.0105, L500.4050, L501.2300, L501.5200, L501.6710, L503.6030, L503.6550, L504.2610, L506.0250, L3410.2400 #### [facility] [address] [place], [address] Urea nitrogen [Mass/Vol] 13 mg/dL Normal 7-18 [facility] Comment on above: Order Comment: #[id number] CELIAC W REFLEX SER/RT 1 Y Performed By: #### L 100.0100, L101.9900, L503.0105, L500.4050, L501.2300, L501.5200, L501.6710, L503.6030, L503.6550, L504.2610, L506.0250, L3410.2400 #### [facility] [address] [place], [address] Determination of erythrocyte mean corpuscular volume (MCV)Ordered By: Stanislav Cervantes on 04-27-2023 MCV (RBC) [Entitic vol] 90.6 fL 81-99 [facility] Erythrocyte Sed Rateon 04-27 SED RATE 7 mm/hr Normal 0-30 [facility] Comment on above: Performed By: #### L 100.0100, L101.9900, L503.0105, L500.4050, L501.2300, L501.5200, L501.6710, L503.6030, L503.6550, L504.2610, L506.0250, L3410.2400 #### [facility] [address] [place], [place], [address] Erythrocyte distribution wid th ratioOrdered By: Stanislav Cervantes on 04-27-2023 Erythrocyte distribution width (RBC) [Ratio] 11.6 % 11.6-14.6 [facility] Erythrocyte distribution wid th standard deviationOrdered By: Stanislav Cervantes on 04-27-2023 Erythrocyte distribution width (RBC) [Entitic vol] 38.6 fL 35.1-43.9 [facility] Erythrocyte sedimentation ra teOrdered By: Stanislav Cervantes on 04-27-2023 ESR (Bld) [Velocity] 7 mm/h 0-30 [facility] Ferritinon 04-27-2023 Ferritin [Mass/Vol] 6 ng/mL Low 8-252 [facility] Comment on above: Order Comment: #[id number] CELIAC W REFLEX SER/RT1Y Performed By: #### L 100.0100, B882-1 #### [facility] [address] [place], [place], [address] Folates, (Folic Acid)on 04-09 FOLATES 10.20 ng/mL Normal 3.1-55.4 [facility] Comment on above: Order Comment: #16 [id number] CELIAC W REFLEX SER/RT1Y Performed By: #### L 100.0100, B882-1 #### [facility] [address] [place], [address] Hematocrit Auto (Bld) [Volum e fraction]Ordered By: Stanislav Helen on 04-27-2023 Hematocrit (Bld) [Volume fraction] 32.7 % 37-47 [facility] Immature granulocytes/100 WB C Auto (Bld)Ordered By: Stanislav Helen on 04-27-2023 Immature granulocytes/100 WBC (Bld) 0.400 % 0.0-0.9 [facility] Comment on above: IG% - Immature Granu locytes (promyelocytes, myelocytes and metamyelocytes) > 1% indicates that a LEFT SHIFT is Present. Iron measurement (mass/mass) Ordered By: Stanislav Helen on 04-27-2023 Iron (Unsp spec) [Mass/Mass] 73 ug/dL 50-170 [facility] Iron+Iron Binding Capacityon 04-27-2023 Iron [Mass/Vol] 73 ug/dL Normal 50-170 [facility] Comment on above: Order Comment: #[id number] CELIAC W REFLEX SER/RT1Y Performed By: #### L 100.0100, B882-1 #### [facility] [address] [place], [address] IRON SATURATION 22.2 Normal 15.0-55.0 [facility] Comment on above: Order Comment: #[id number] CELIAC W REFLEX SER/RT1Y Performed By: #### L 100.0100, B882-1 #### [facility] [address] [place], [address] TIBC 329 ug/dL Normal 250-450 [facility] Comment on above: Order Comment: #[id number] CELIAC W REFLEX SER/RT1Y Performed By: #### L 100.0100, B882-1 #### [facility] [address] [place], [address] LDHon 04-27-2023 LDH 148 U/L Normal 84-246 [facility] Comment on above: Order Comment: #[id number] CELIAC W REFLEX SER/RT1Y Performed By: #### L 100.0100, B882-1 #### [facility] [address] [place], [place], [address] Laboratory - Chemistry and C hemistry - challengeOrdered By: Stanislav Cervantes on 04-27-2023 Albumin/Globulin [Mass ratio] 1.0 {ratio} 0.9-2.4 [facility] ALP [Catalytic activity/Vol] 45 U/L 45-117 [facility] ALT [Catalytic activity/Vol] 30 U/L 13-56 [facility] CO2 [Moles/Vol] 24.0 mmol/L 21.0-32.0 [facility] Cobalamin (Vitamin B12) [Mass/Vol] 343 pg/mL 211-911 [facility] Ferritin [Mass/Vol] 6 ng/mL 8-252 [facility] Globulin (S) [Mass/Vol] 3.6 g/dL 2.2-4.2 [facility] Magnesium [Mass/Vol] 2.1 mg/dL 1.6-2.6 [facility] Urea nitrogen/Creatinine [Mass ratio] 17.9 mg/mg 10-20 [facility] - Hematology and Cell countsOrdered By: Stanislav Cervantes on 04-27-2023 MCH (RBC) [Entitic mass] 28.8 pg 27.0-32.0 [facility] MCHC (RBC) [Mass/Vol] 31.8 g/dL 32-36 [facility] Nucleated RBC/100 WBC (Bld) [Ratio] 0 % 0-5 [facility] Platelet mean volume (Bld) [Entitic vol] 9.4 fL 6.2-12.0 [facility] Platelets (Bld) [#/Vol] 157 10*3/uL 150-450 [facility] Magnesiumon 04-27-2023 Magnesium [Mass/Vol] 2.1 mg/dL Normal 1.6-2.6 [facility] Comment on above: Order Comment: LC#[id number] CELIAC W REFLEX SER/RT1Y Performed By: #### L 100.0100, B882-1 #### [facility] [address] [place], [place], [id number] No Panel InformationOrdered By: Stanislav Cervantes on 04-27-2023 C-Reactive Protein Extended Range < 2.90 mg/L 0.0-3.0 [facility] Comment on above: C-Reactive Protein ( CRP) provides useful information for thediagnosis, therapy and monitoring of inflammatory processesand associated diseases. For the evaluation of Relative Riskfor Cardiovascular Disease, a High Sensitivity CRP (HSCRP)should be ordered. Endomysial IgA Antibody Negative Negative [facility] Estimated GFR (MDRD) Amer 119 mL/min >60 [facility] Comment on above: GFR Calc Estimated GFR (MDRD) Non-Af Amer 98 mL/min >60 [facility] Comment on above: Non- GFR Calc Folate 10.20 ng/mL 3.1-55.4 [facility] Immunoglobulin A 176 mg/dL 87-352 [facility] Comment on above: Performed at: [facility] [address] [id number] Director: Mark Anthony Ley PhD, Phone: [phone] Total Iron Binding Capacity 329 ug/dL 250-450 [facility] Oncology Visit Reporton 04-09 Oncology Visit Report [facility] [address] [id number] OFFICE VISIT Date of Service: 04/27/23 1602 MR#: [id number] Acct: [id number] Name: ROSI SINGLETON Rep #: [id number] : 1990 From: Stanislav Cervantes MD Age/Sex: 32/F [place] [facility] [place]: Signed HPI Subjective Date of Service 04/27/23 Chief Complaint Referred for Leukopenia/thrombocyto penia/Anemia History of Present Illness 32-year-old woman with history of menorrhagia was found to have fluctuating WBC, platelets and low hemoglobin hence referred for further evaluation and management. She has taken iron for iron deficiency anemia but did not tolerate that so currently not taking anything. [facility] Medical History Anemia Syncopal episodes Family History Father Pancreatic cancer Diabetes Blood clot in vein Daughter Type 1 diabetes Other Myocardial infarction Social History adopted: No household members: children housing: apartment number of children: 2 Smoking Status: Never smoker Electronic Cigarette Use: not used second hand exposure: No alcohol intake: never substance use type: does not use jaci/jain: [employer]ond[employer]ominational seatbelt use: always do you feel safe at home: Yes Female Reproductive History Menstrual Ab induced: 0 Ab spontaneous: 0 Ectopics: 0 ROS Constitutional Constitutional: Reports systems reviewed and no addt'l complaints, except as documented Eyes Eyes: Reports systems reviewed and no addt'l complaints, except as documented and floaters ENT HEENT: Reports systems reviewed and no addt'l complaints, except as documented Cardiovascular Cardiovascular: Reports systems reviewed and no addt'l complaints, except as documented Respiratory/Chest Respiratory/Chest: Reports systems reviewed and no addt'l complaints, except as documented Gastrointestinal Gastrointestinal: Reports systems reviewed and no addt'l complaints, except as documented Genitourinary Genitourinary: Reports systems reviewed and no addt'l complaints, except as documented Musculoskeletal Musculoskeletal: Reports systems reviewed and no addt'l complaints, except as documented Integumentary Integumentary: Reports systems reviewed and no addt'l complaints, except as documented Neurologic Neurologic: Reports systems reviewed and no addt'l complaints, except as documented Psychiatric Psychiatric: Reports systems reviewed and no addt'l complaints, except as documented Endocrine Endocrinology: Reports systems reviewed and no addt'l complaints, except as documented Hematologic/Lymphatic Hematologic/Lymphatic: Reports systems reviewed and no addt'l complaints, except as documented Allergic/Immunologic Allergic/Immunologic: Reports systems reviewed and no addt'l complaints, except as documented Intake Vital Signs 04/03/23 14:27 04/27/23 16:03 04/27/23 16:04 Height 5 ft 4 in 5 ft 4 in 5 ft 4 in Weight: 59.959 kg BMI 22.6 BP 116/71 Blood Pressure Location Lt brachial Position Sitting Respiration 18 Pulse 86 Pulse Source Monitor Temp 98.8 F Temperature Source Temporal Artery Pulse Oximetry (%) 100 Oxygen Delivery Method room air Intake Is patient in pain?: No Allergies No Known Allergies Allergy (Verified 02/19/24 16:02) Medications tranexamic acid 650 mg tablet 1,300 mg (2 x 650 mg) PO TID 5 days #30 tabs 04/03/23 [Rx Confirmed 04/27/23] Central Venous Access Central Venous Access: No Exam Physical Exam Const alert, oriented x3, no apparent distress and average body habitus HEENT normocephalic, external ears normal and external nose normal Eyes PERRL, conjunctivae normal and no scleral icterus Neck supple Lymph Lymphatic: no lymphadenopathy noted Resp normal respiratory effort and clear to auscultation bilaterally Cardio regular rate, regular rhythm, S1 normal heart sound, S2 normal heart sound and no murmurs GI normal to inspection, nondistended, normoactive bowel sounds no CVA tenderness Back/Spine no CVA tenderness and thoracic and lumbar spine normal to inspection Extremity normal to inspection and no clubbing, cyanosis or edema Skin no rashes or lesions noted Neuro oriented x3, CN's II-XII intact bilaterally and moves all extremities Psych mental status grossly normal Coding Level of Care Code Off vis,new,level 3 Exam Problem Focused Diagnoses Pancytopenia D61.818 Iron deficiency anemia, unspecified iron deficiency anemia type D50.9 Iron deficiency anemia type: unspecified iron deficiency Assessment and Plan Assessment and Plan (1) Pancytopenia: Status: Acute Plan: (more content not included)... Normal [facility] Phosphoruson 04-27-2023 Phosphate [Mass/Vol] 2.8 mg/dL Normal 2.5-4.9 [facility] Comment on above: Order Comment: LC#[id number] CELIAC W REFLEX SER/RT 1 Y Performed By: #### L 100.0100, L101.9900, L503.0105, L500.4050, L501.2300, L501.5200, L501.6710, L503.6030, L503.6550, L504.2610, L506.0250, L3410.2400 #### [facility] [address] [place], [address] RBC Auto (Bld) [#/Vol]Ordere d By: Stanislav Cervantes on 04-27-2023 RBC (Bld) [#/Vol] 3.61 10*6/uL 4.2-5.4 [facility] Serum or plasma calcium home urement (mass/volume)Ordered By: Stanislav Cervantes on 04-27-2023 Calcium [Mass/Vol] 8.3 mg/dL 8.5-10.1 [facility] Serum or plasma creatinine m easurement (mass/volume)Ordered By: Stanislav Cervantes on 04-27-2023 Creatinine [Mass/Vol] 0.73 mg/dL 0.55-1.02 [facility] Comment on above: The validity of the calculated GFR & GFRAA in patients over 70 years has not been determined. Clinical correlation is essential. Serum or plasma erythropoiet in (EPO) measurement (units/volume)Ordered By: Stanislav Cervantes on 04-27-2023 Erythropoietin (EPO) Qn 17.9 mIU/mL 2.6-18.5 [facility] Comment on above: [facility] DxI 800 Immunoassay SystemValues obtained with different assay methods or kits cannotbe used interchangeably. Results cannot be interpreted asabsolute evidence of the presence or absence of malignantdisease.Performed at: [facility] [id number] Director: Mark Anthony Ley PhD, Phone: [phone] Serum or plasma iron saturat ion measurement (mass fraction)Ordered By: Stanislav Cardoso on 04-27-2023 Iron saturation [Mass fraction] 22.2 % 15.0-55.0 [facility] Serum or plasma urea nitroge n measurement (mass/volume)Ordered By: Stanislav Cardoso on 04-27-2023 Urea nitrogen [Mass/Vol] 13 mg/dL 7-18 [facility] Serum tissue transglutaminas e IgA antibody assay (units/volume)Ordered By: Stanislav Cardoso on 04-27-2023 tTG IgA Qn (S) <2 U/mL 0-3 [facility] Comment on above: Negative 0 - 3 Weak Positive 4 - 10 Positive >10 Tissue Transglutaminase (tTG) has been identified as the endomysial antigen. Studies have demonstr- ated that endomysial IgA antibodies have over 99% specificity for gluten sensitive enteropathy. Thin prep Papanicolaou smear with manual screeningOrdered By: Stanislav Cervantes on 04-27-2023 Thin prep Papanicolaou smear with manual screening 3.5 g/dL 3.2-5.0 [facility] Thin prep Papanicolaou smear with manual screening 22 U/L 15-37 [facility] Thin prep Papanicolaou smear with manual screening 4 5-15 [facility] Vitamin B12on 04-27-2023 Cobalamin (Vitamin B12) [Mass/Vol] 343 pg/mL Normal 211-911 [facility] Comment on above: Performed By: #### L 100.0100, L101.9900, L503.0105, L500.4050, L501.2300, L501.5200, L501.6710, L503.6030, L503.6550, L504.2610, L506.0250, L3410.2400 #### [facility] [address] [facility] [place], [address] Transvaginal Non-on 04-24-2023 Transvaginal Non- [facility] [address] [place] [address] Transvaginal Non- MR#: [id number] Acct: [id number] Name: ROSI SINGLETON Rep #: [id number] : 1990 F 32 From: Cliff ray MD PCP: Care Physician,No Primary Status: REG CLI Study: Transvaginal Non- Date of Exam: Exam# [id number] Ordering Dr: Renate East [id number] STUDY: ULTRASOUND OF THE FEMALE PELVIS - COMPLETE REASON FOR EXAM: Female, 32 years old. Abnormal Uterine Bleeding LMP: April 03, 2023. TECHNIQUE: Transvaginal TECHNICAL QUALITY: Adequate. COMPARISON: Comparison is made with prior study dated March 19, 2023. FINDINGS: The uterus is retroflexed and is in a midline position. The uterus measures 10.1 cm x 7.7 cm x 6.4 cm. Normal uterine cervix. The endometrium measures 17 mm in thickness, and is hyperechoic. There is no demonstrated endometrial mass. There is no demonstrated myometrial mass. I.U.D. - The patient does not have an I.U.D. The right ovary is visualized. The right ovary measures 3.8 cm x 2.7 cm x 2.3 cm. There is no right ovarian cyst or ovarian mass. There is no visualized right adnexal mass or complex lesion. There is normal arterial and normal venous vascularity. The left ovary is visualized. The left ovary measures 3.9 cm x 2.1 cm x 2.7 cm. A dominant follicle is seen within it. There is no visualized left adnexal mass or complex lesion. There is normal arterial and normal venous vascularity. There is no fluid in the cul-de-sac. US/Transvaginal Non- IMPRESSION: Normal female pelvis. Dominant follicle is seen in the left ovary. Electronically Signed: Cliff Ferrera MD at 15:03 EST , CC: Dr. Renate East MD; No Primary Care Physician Technical Coordinator: Signed Normal [facility] Absolute lymphocyte countOrd ered By: Renate East on 04-03-2023 Lymphocytes Auto (Unsp spec) [#/Vol] 1.34 10*3/uL 0.83-4.51 [facility] Automated lymphocyte count a s percentage of total leukocytesOrdered By: Renate East on 04-03-2023 Lymphocytes/100 WBC Auto (Unsp spec) 28.3 % 19-41 [facility] Basophil percentageOrdered B y: Renate East on 04-03-2023 Basophils/100 WBC (Bld) 0.6 % 0-1 [facility] Eosinophils/100 WBC (Bld) 1.1 % 0-5 [facility] Hemoglobin (Bld) [Mass/Vol] 10.8 g/dL 12.0-15.0 [facility] Monocytes/100 WBC (Bld) 12.0 % 0-10 [facility] Neutrophils (Bld) [#/Vol] 2.7 10*3/uL 2.0-7.7 [facility] Neutrophils/100 WBC (Bld) 57.8 % 47-70 [facility] WBC (Bld) [#/Vol] 4.7 10*3/uL 4.4-11.0 [facility] CBC W/Diff, Automatedon 03-10 Absolute Lymph 1.34 X10 3/uL Normal 0.83-4.51 [facility] Comment on above: Performed By: #### L 503.6550, L100.0100, L503.6030 #### [facility] [address] [place], [address] Absolute Neut 2.7 X10 3/uL Normal 2.0-7.7 [facility] Comment on above: Performed By: #### L 503.6550, L100.0100, L503.6030 #### [facility] [address] [place], [address] Basophils/100 WBC (Bld) 0.6 % Normal 0-1 [facility] Comment on above: Performed By: #### L 503.6550, L100.0100, L503.6030 #### [facility] [address] [place], [address] Eosinophils/100 WBC (Bld) 1.1 % Normal 0-5 [facility] Comment on above: Performed By: #### L 503.6550, L100.0100, L503.6030 #### [facility] [address] [place], [address] Erythrocyte distribution width (RBC) [Ratio] 12.0 % Normal 11.6-14.6 [facility] Comment on above: Performed By: #### L 503.6550, L100.0100, L503.6030 #### [facility] [address] [place], [address] Hematocrit (Bld) [Volume fraction] 32.5 % Low 37-47 [facility] Comment on above: Performed By: #### L 503.6550, L100.0100, L503.6030 #### [facility] [address] [place], [address] Hemoglobin (Bld) [Mass/Vol] 10.8 g/dL Low 12.0-15.0 [facility] Comment on above: Performed By: #### L 503.6550, L100.0100, L503.6030 #### [facility] [address] [place], [address] IG% 0.200 Normal 0.0-0.9 [facility] Comment on above: Result Comment: IG% - Immature Granulocytes (promyelocytes, myelocytes and metamyelocytes) > 1% indicates that a LEFT SHIFT is Present. Performed By: #### L 503.6550, L100.0100, L503.6030 #### [facility] [address] [place], [address] Lymphocytes/100 WBC (Bld) 28.3 % Normal 19-41 [facility] Comment on above: Performed By: #### L 503.6550, L100.0100, L503.6030 #### [facility] [address] [place], [address] MCH (RBC) [Entitic mass] 29.8 pg Normal 27.0-32.0 [facility] Comment on above: Performed By: #### L 503.6550, L100.0100, L503.6030 #### [facility] [address] [place], [address] MCHC (RBC) [Mass/Vol] 33.2 g/dL Normal 32-36 [facility] Comment on above: Performed By: #### L 503.6550, L100.0100, L503.6030 #### [facility] [address] [place], [address] MCV (RBC) [Entitic vol] 89.8 fL Normal 81-99 [facility] Comment on above: Performed By: #### L 503.6550, L100.0100, L503.6030 #### [facility] [address] [place], [address] Monocytes/100 WBC (Bld) 12.0 % High 0-10 [facility] Comment on above: Performed By: #### L 503.6550, L100.0100, L503.6030 #### [facility] [address] [place], [address] Neutrophils/100 WBC (Bld) 57.8 % Normal 47-70 [facility] Comment on above: Performed By: #### L 503.6550, L100.0100, L503.6030 #### [facility] [address] [place], [address] Nucleated RBC (Bld) [#/Vol] 0 10*3/uL Normal 0-5 [facility] Comment on above: Performed By: #### L 503.6550, L100.0100, L503.6030 #### [facility] [address] [place], [address] Platelet mean volume (Bld) [Entitic vol] 9.0 fL Normal 6.2-12.0 [facility] Comment on above: Performed By: #### L 503.6550, L100.0100, L503.6030 #### [facility] [address] [place], [address] Platelets (Bld) [#/Vol] 161 10*3/uL Normal 150-450 [facility] Comment on above: Performed By: #### L 503.6550, L100.0100, L503.6030 #### [facility] [address] [place], [address] RBC (Bld) [#/Vol] 3.62 10*6/uL Low 4.2-5.4 [facility] Comment on above: Performed By: #### L 503.6550, L100.0100, L503.6030 #### [facility] [address] [place], [address] RDW SD 39.2 fl Normal 35.1-43.9 [facility] Comment on above: Performed By: #### L 503.6550, L100.0100, L503.6030 #### [facility] [address] [place], [address] WBC (Bld) [#/Vol] 4.7 10*3/uL Normal 4.4-11.0 [facility] Comment on above: Performed By: #### L 503.6550, L100.0100, L503.6030 #### [facility] [address] [place], [address] Determination of erythrocyte mean corpuscular volume (MCV)Ordered By: Renate East on 04-03-2023 MCV (RBC) [Entitic vol] 89.8 fL 81-99 [facility] Erythrocyte distribution wid th ratioOrdered By: Renate East on 04-03-2023 Erythrocyte distribution width (RBC) [Ratio] 12.0 % 11.6-14.6 [facility] Erythrocyte distribution wid th standard deviationOrdered By: Renate East on 04-03-2023 Erythrocyte distribution width (RBC) [Entitic vol] 39.2 fL 35.1-43.9 [facility] Hematocrit Auto (Bld) [Volum e fraction]Ordered By: Renate East on 04-03-2023 Hematocrit (Bld) [Volume fraction] 32.5 % 37-47 [facility] Immature granulocytes/100 WB C Auto (Bld)Ordered By: Renate East on 04-03-2023 Immature granulocytes/100 WBC (Bld) 0.200 % 0.0-0.9 [facility] Comment on above: IG% - Immature Granu locytes (promyelocytes, myelocytes and metamyelocytes) > 1% indicates that a LEFT SHIFT is Present. Laboratory - Hematology and Cell countsOrdered By: Renate East on 04-03-2023 MCH (RBC) [Entitic mass] 29.8 pg 27.0-32.0 [facility] MCHC (RBC) [Mass/Vol] 33.2 g/dL 32-36 [facility] Nucleated RBC/100 WBC (Bld) [Ratio] 0 % 0-5 [facility] Platelets (Bld) [#/Vol] 161 10*3/uL 150-450 [facility] Color Paste Mixing Supervisor Office Visit Reporton 04-03-2023 Color Paste Mixing Supervisor Office Visit Report [facility] [address] [place] [address] OFFICE VISIT Date of Service: 04/03/23 MR#: [id number] Acct: [id number] Name: ROSI SINGLETON Rep #: [id number] : 1990 Provider: Dr. Renate segura MD Age/Sex: 32/F Location: [place] Status: Signed Intake Vital Signs 03/06/23 17:55 04/03/23 14:18 04/03/23 14:27 Height 5 ft 4 in 5 ft 4 in 5 ft 4 in Weight: 129 lb BMI 22.1 BP 121/77 H Blood Pressure Location Lt brachial Position Sitting Intake Visit Reasons: New patient [facility] F/U [facility] Cost Specialist Required: No Accompanied by: Self Is patient in pain?: No Feel stressed/tense/nervous /anxious/difficulty sleeping: not at all Allergies No Known Allergies Allergy (Verified 04/03/23 14:20) Medications NK 04/03/23 [History Confirmed 04/03/23] tranexamic acid 650 mg tablet 1,300 mg (2 x 650 mg) PO TID 5 days #30 tabs 04/03/23 [Rx Confirmed 04/03/23] Is last menstrual period known: Yes Last Menstrual Period: 03/03/23 Patient : No PFSH Medical History (Updated 04/03/23 @ 15:[address] Renate East MD) Anemia Syncopal episodes Family History (Updated 04/03/23 @ 14:23 by Kathy Carrillo) Father Pancreatic cancer Diabetes Blood clot in vein Daughter Type 1 diabetes Other Myocardial infarction Social History (Updated 04/03/23 @ 14:25 by Kathy Carrillo) adopted: No household members: children housing: apartment number of children: 2 Smoking Status: Never smoker Electronic Cigarette Use: not used second hand exposure: No alcohol intake: never substance use type: does not use jaci/jain: [employer] Day Nondenominational seatbelt use: always do you feel safe at home: Yes HPI New patient [facility] Details: ROSI SINGLETON is a 32 year old who presents for heavy painful periods especially on the left side, she feels it worse on the left side, she has been having worsening heavy periods over the years, she denies any dizziness or lightheadedness. she has never seen a wardrobe stylist. she had an US that showed a thickened lining. she tried control in the pat and had persistent bleeding- didn't like it. Female Reproductive History Last Menstrual Period: 03/03/23 Cycle Length: 21-35 Bleeding Duration: 7 Associated symptoms: dysmenorrhea Questions: metorrhagia: No History 2 Elective abortions 0 Hx Para 2 Spontaneous abortions 0 Hx # Term Pregnancies 1 Ectopic pregnancies 0 Hx # Pregnancies 1 Multiple births 0 # of living children 2 ROS Const Constitutional: Denies fatigue, fever(s), headache(s), increased appetite, poor appetite, weight gain or weight loss ENT ENT: Reports system reviewed and no additional complaints, except as documented Cardio Card: Denies chest pain Resp Resp: Denies cough or dyspnea GI GI: Reports as per HPI; Denies abdominal pain, constipation, nausea or vomiting : Reports as per HPI; Denies difficulty voiding, dysuria, hematuria, nipple discharge, pelvic pain, urinary frequency, urinary incontinence, urinary hesitancy, urinary urgency, vaginal discharge, vaginal dryness, vaginal odor, vaginal pruritus or other Musc Musc: Denies arthralgias, back pain or muscle weakness Skin Skin/Breast: Denies alopecia, change in hair, dry skin, breast mass, breast pain, breast skin changes or nipple discharge Neuro Neuro: Reports system reviewed and no additional complaints, except as documented Psych Psych: Reports system reviewed and no additional complaints, except as documented Endo Endo: Denies cold intolerance, excessive sweating, heat intolerance or polydipsia Israel/Lymph Hematologic/Lymphatic: Denies easy bleeding, Denies easy bruising and Denies lymphadenopathy Exam Const General: cooperative, healthy appearing, comfortable, no acute distress and well developed Orientation: alert [facility] Head: normal to inspection and normocephalic Ears: hearing grossly normal bilaterally and external ears normal Nose: external nose normal and nares normal Face and sinus: normal facial exam Neck Neck: normal visual inspection, no lymphadenopathy and trachea midline Thyroid: thyroid normal Chest Chest palpation inspection: normal inspection of the chest Resp Effort Inspection: normal respiratory effort Auscultation: clear to auscultation bilaterally Cardio Rate: regular rate Rhythm: regular rhythm Heart Sounds: S1 normal and S2 normal GI Inspection: normal to inspection and non-distended Palpation: soft and no hepatosplenomegaly Musc Other: gross motor intact no deficits, full bilateral strength Skin General: no rashes or lesions noted Neuro General: patient alert, patient awake, moves all extremities and no focal motor def (more content not included)... Normal [facility] Platelet mean volume Surinder-Ec ker (Bld) [Entitic vol]Ordered By: Renate East on 04-03-2023 Platelet mean volume (Bld) [Entitic vol] 9.0 fL 6.2-12.0 [facility] RBC Auto (Bld) [#/Vol]Ordere d By: Renate East on 04-03-2023 RBC (Bld) [#/Vol] 3.62 10*6/uL 4.2-5.4 [facility] Pelvic w/ Transvaginalon Pelvic w/ Transvaginal [facility] [address] [place] [address] Pelvic w/ Transvaginal MR#: [id number] Acct: [id number] Name: ROSI SINGLETON Rep #: [id number] : 1990 F 32 From: Sudhakar Cuevas MD PCP: Care Physician,No Primary Status: REG CLI Study: Pelvic w/ Transvaginal Date of Exam: 03/19/23 Exam# [id number] Ordering Dr: Renate East [id number] STUDY: ULTRASOUND OF THE FEMALE PELVIS - LIMITED REASON FOR EXAM: Female, 32 years old abnormal uterine bleeding TECHNIQUE: Transabdominal and Transvaginal TECHNICAL QUALITY: Adequate. COMPARISON: None. FINDINGS: The uterus is anteverted and is in a midline position. The uterus measures 10.9 x 7.1 x 5.6 cm. Normal uterine cervix. The endometrium measures 17.1 mm in thickness, and is heterogeneous (striated). There is no demonstrated endometrial mass. There is no demonstrated myometrial mass. The right ovary measures 3.8 x 2.6 x 2.1 cm. There is a septated 2.4 cm cyst. . There is normal arterial and normal venous vascularity. The left ovary measures 2.8 x 3.3 x 1.8 cm. There is no left ovarian cyst or ovarian mass. There is no visualized left adnexal mass or complex lesion. There is normal arterial and normal venous vascularity. There is no fluid in the cul-de-sac. Bladder is sonographically normal US/Pelvic w/ Transvaginal IMPRESSION: Endometrium is heterogeneous and thickened but still within normal range for a patient of this age. An underlying polyp could be present and overlooked due to the heterogeneity of the endometrium. Recommend a 3-4 week follow-up ultrasound to see if the endometrium remains abnormally thickened or returns to more normal expected thickness, or MRI could be performed for further evaluation of the uterus and endometrium. Septated right ovarian cyst, no specific follow-up needed Sonographically normal left ovary Electronically Signed: Cory Cuevas MD at 17:31 EST , CC: Dr. Renate East MD; No Primary Care Physician Technical Coordinator: Signed Normal [facility] Absolute lymphocyte countOrd ered By: Renate East on 03-13-2023 Lymphocytes Auto (Unsp spec) [#/Vol] 1.27 10*3/uL 0.83-4.51 [facility] Basophil percentageOrdered B y: Renate East on 03-13-2023 Basophils/100 WBC (Bld) 0.8 % 0-1 [facility] Eosinophils/100 WBC (Bld) 2.0 % 0-5 [facility] Neutrophils (Bld) [#/Vol] 1.8 10*3/uL 2.0-7.7 [facility] Neutrophils/100 WBC (Bld) 50.7 % 47-70 [facility] WBC (Bld) [#/Vol] 3.5 10*3/uL 4.4-11.0 [facility] Blood erythrocytes count (nu mber/volume)Ordered By: Renate East on 03-13-2023 RBC (Bld) [#/Vol] 3.69 10*6/uL 4.2-5.4 [facility] Blood hemoglobin measurement (mass/volume)Ordered By: Renate East on 03-13-2023 Hemoglobin (Bld) [Mass/Vol] 11.0 g/dL 12.0-15.0 [facility] Blood lymphocytes/100 leukoc ytesOrdered By: Renate East on 03-13-2023 Lymphocytes/100 WBC (Bld) 36.0 % 19-41 [facility] Blood monocytes/100 leukocyt esOrdered By: Renate East on 03-13-2023 Monocytes/100 WBC (Bld) 10.2 % 0-10 [facility] Blood platelet mean volumeOr dered By: Renate East on 03-13-2023 Platelet mean volume (Bld) [Entitic vol] 9.6 fL 6.2-12.0 [facility] CBC W/Diff, Automatedon Absolute Lymph 1.27 X10 3/uL Normal 0.83-4.51 [facility] Comment on above: Performed By: #### L 503.6550, L100.0100, L503.6030 #### [facility] [address] [place], [address] Absolute Neut 1.8 X10 3/uL Low 2.0-7.7 [facility] Comment on above: Performed By: #### L 503.6550, L100.0100, L503.6030 #### [facility] [address] [place], [address] Basophils/100 WBC (Bld) 0.8 % Normal 0-1 [facility] Comment on above: Performed By: #### L 503.6550, L100.0100, L503.6030 #### [facility] [address] [place], [address] Eosinophils/100 WBC (Bld) 2.0 % Normal 0-5 [facility] Comment on above: Performed By: #### L 503.6550, L100.0100, L503.6030 #### [facility] [address] [place], [address] Erythrocyte distribution width (RBC) [Ratio] 12.2 % Normal 11.6-14.6 [facility] Comment on above: Performed By: #### L 503.6550, L100.0100, L503.6030 #### [facility] [address] [place], [address] Hematocrit (Bld) [Volume fraction] 33.6 % Low 37-47 [facility] Comment on above: Performed By: #### L 503.6550, L100.0100, L503.6030 #### [facility] [address] [place], [address] Hemoglobin (Bld) [Mass/Vol] 11.0 g/dL Low 12.0-15.0 [facility] Comment on above: Performed By: #### L 503.6550, L100.0100, L503.6030 #### [facility] [address] [place], [address] IG% 0.300 Normal 0.0-0.9 [facility] Comment on above: Result Comment: IG% - Immature Granulocytes (promyelocytes, myelocytes and metamyelocytes) > 1% indicates that a LEFT SHIFT is Present. Performed By: #### L 503.6550, L100.0100, L503.6030 #### [facility] [address] [place], [address] Lymphocytes/100 WBC (Bld) 36.0 % Normal 19-41 [facility] Comment on above: Performed By: #### L 503.6550, L100.0100, L503.6030 #### [facility] [address] [place], [address] MCH (RBC) [Entitic mass] 29.8 pg Normal 27.0-32.0 [facility] Comment on above: Performed By: #### L 503.6550, L100.0100, L503.6030 #### [facility] [address] [place], [address] MCHC (RBC) [Mass/Vol] 32.7 g/dL Normal 32-36 [facility] Comment on above: Performed By: #### L 503.6550, L100.0100, L503.6030 #### [facility] [address] [place], [address] MCV (RBC) [Entitic vol] 91.1 fL Normal 81-99 [facility] Comment on above: Performed By: #### L 503.6550, L100.0100, L503.6030 #### [facility] [address] [place], [address] Monocytes/100 WBC (Bld) 10.2 % High 0-10 [facility] Comment on above: Performed By: #### L 503.6550, L100.0100, L503.6030 #### [facility] [address] [place], [address] Neutrophils/100 WBC (Bld) 50.7 % Normal 47-70 [facility] Comment on above: Performed By: #### L 503.6550, L100.0100, L503.6030 #### [facility] [address] [place], [address] Nucleated RBC (Bld) [#/Vol] 0 10*3/uL Normal 0-5 [facility] Comment on above: Performed By: #### L 503.6550, L100.0100, L503.6030 #### [facility] [address] [place], [address] Platelet mean volume (Bld) [Entitic vol] 9.6 fL Normal 6.2-12.0 [facility] Comment on above: Performed By: #### L 503.6550, L100.0100, L503.6030 #### [facility] [address] [place], [address] Platelets (Bld) [#/Vol] 183 10*3/uL Normal 150-450 [facility] Comment on above: Performed By: #### L 503.6550, L100.0100, L503.6030 #### [facility] [address] [place], [address] RBC (Bld) [#/Vol] 3.69 10*6/uL Low 4.2-5.4 [facility] Comment on above: Performed By: #### L 503.6550, L100.0100, L503.6030 #### [facility] [address] [place], [address] RDW SD 40.5 fl Normal 35.1-43.9 [facility] Comment on above: Performed By: #### L 503.6550, L100.0100, L503.6030 #### [facility] [address] [place], [address] WBC (Bld) [#/Vol] 3.5 10*3/uL Low 4.4-11.0 [facility] Comment on above: Performed By: #### L 503.6550, L100.0100, L503.6030 #### [facility] [address] [place], [address] Determination of erythrocyte mean corpuscular volume (MCV)Ordered By: Renate East on 03-13-2023 MCV (RBC) [Entitic vol] 91.1 fL 81-99 [facility] Ferritinon 03-13-2023 Ferritin [Mass/Vol] 6 ng/mL Low 8-252 [facility] Comment on above: Performed By: #### L 503.6550, L100.0100, L503.6030 #### [facility] [address] [place], [address] Hematocrit Auto (Bld) [Volum e fraction]Ordered By: Renate East on 03-13-2023 Hematocrit (Bld) [Volume fraction] 33.6 % 37-47 [facility] Iron measurement (mass/mass) Ordered By: Renate East on 03-13-2023 Iron (Unsp spec) [Mass/Mass] 54 ug/dL 50-170 [facility] Iron+Iron Binding Capacityon 03-13-2023 Iron [Mass/Vol] 54 ug/dL Normal 50-170 [facility] Comment on above: Performed By: #### L 503.6550, L100.0100, L503.6030 #### [facility] [address] [place], [address] IRON SATURATION 14.1 Low 15.0-55.0 [facility] Comment on above: Performed By: #### L 503.6550, L100.0100, L503.6030 #### [facility] [address] [place], [place], [address] TIBC 383 ug/dL Normal 250-450 [facility] Comment on above: Performed By: #### L 503.6550, L100.0100, L503.6030 #### [facility] [address] [place] [place], [address] Laboratory - Hematology and Cell countsOrdered By: Renate East on 03-13-2023 Erythrocyte distribution width (RBC) [Entitic vol] 40.5 fL 35.1-43.9 [facility] Erythrocyte distribution width (RBC) [Ratio] 12.2 % 11.6-14.6 [facility] Immature granulocytes/100 WBC (Bld) 0.300 % 0.0-0.9 [facility] Comment on above: IG% - Immature Granu locytes (promyelocytes, myelocytes and metamyelocytes) > 1% indicates that a LEFT SHIFT is Present. MCH (RBC) [Entitic mass] 29.8 pg 27.0-32.0 [facility] Nucleated RBC/100 WBC (Bld) [Ratio] 0 % 0-5 [facility] MCHC Auto (RBC) [Mass/Vol]Or dered By: Renate East on 03-13-2023 MCHC (RBC) [Mass/Vol] 32.7 g/dL 32-36 [facility] No Panel InformationOrdered By: Renate East on 03-13-2023 Total Iron Binding Capacity 383 ug/dL 250-450 [facility] Platelets bldOrdered By: Juwan East on 03-13-2023 Platelets (Bld) [#/Vol] 183 10*3/uL 150-450 [facility] Serum or plasma ferritin leyla surement (mass/volume)Ordered By: Renate East on 03-13-2023 Ferritin [Mass/Vol] 6 ng/mL 8-252 [facility] Serum or plasma iron saturat ion measurement (mass fraction)Ordered By: Renate East on 03-13-2023 Iron saturation [Mass fraction] 14.1 % 15.0-55.0 [facility] Absolute lymphocyte countOrd ered By: Dimitri Jerez on 03-06-2023 Lymphocytes Auto (Unsp spec) [#/Vol] 1.10 10*3/uL 0.83-4.51 [facility] [id number] 03-06-2023 ABO and Rh group Nom (Bld) Blood group A Rh(D) positive Normal [facility] Comment on above: Performed By: #### L 100.0100, B882-1 #### [facility] [address] [place], [address] Basic Metabolic Profile (BMP )on 03-06-2023 BUN/CRE 13.8 RATIO Normal 10-20 [facility] Comment on above: Performed By: #### L 503.6550, L100.0100, L503.6030 #### [facility] [address] [place], [address] CA,Total 9.5 mg/dL Normal 8.5-10.1 [facility] Comment on above: Performed By: #### L 503.6550, L100.0100, L503.6030 #### [facility] [address] [place], [address] Chloride [Moles/Vol] 108 mmol/L High 98-107 [facility] Comment on above: Performed By: #### L 503.6550, L100.0100, L503.6030 #### [facility] [address] [place], [address] CO2 [Moles/Vol] 28.0 mmol/L Normal 21.0-32.0 [facility] Comment on above: Performed By: #### L 503.6550, L100.0100, L503.6030 #### [facility] [address] [place], [address] Creatinine [Mass/Vol] 0.80 mg/dL Normal 0.55-1.02 [facility] Comment on above: Result Comment: The validity of the calculated GFR GFRAA in patients over 70 years has not been determined. Clinical correlation is essential. Performed By: #### L 503.6550, L100.0100, L503.6030 #### [facility] [address] [place], [address] ECRCL 87.18 ml/min Normal [facility] Comment on above: Performed By: #### L 503.6550, L100.0100, L503.6030 #### [facility] [address] [place], [address] EST GFR - AA 106 mL/min Normal >60 [facility] Comment on above: Result Comment: Afri can Tristanian GFR Calc Performed By: #### L 503.6550, L100.0100, L503.6030 #### [facility] [address] [place], [address] GAP 4 Low 5-15 [facility] Comment on above: Performed By: #### L 503.6550, L100.0100, L503.6030 #### [facility] [address] [place], [address] GFR/1.73 sq M.predicted among non-blacks MDRD (S/P/Bld) [Vol rate/Area] 88 mL/min/{1.73_m2} Normal >60 [facility] Comment on above: Result Comment: Non- GFR Calc Performed By: #### L 503.6550, L100.0100, L503.6030 #### [facility] [address] [place], [address] Glucose [Mass/Vol] 90 mg/dL Normal 74-106 [facility] Comment on above: Performed By: #### L 503.6550, L100.0100, L503.6030 #### [facility] [address] [place], [address] Potassium [Moles/Vol] 3.8 mmol/L Normal 3.5-5.1 [facility] Comment on above: Performed By: #### L 503.6550, L100.0100, L503.6030 #### [facility] [address] [place], [address] Sodium [Moles/Vol] 140 mmol/L Normal 136-145 [facility] Comment on above: Performed By: #### L 503.6550, L100.0100, L503.6030 #### [facility] [address] [place], [address] Urea nitrogen [Mass/Vol] 11 mg/dL Normal 7-18 [facility] Comment on above: Performed By: #### L 503.6550, L100.0100, L503.6030 #### [facility] [address] [place], [address] Basophil percentageOrdered B y: Dimitri Jerez on 03-06-2023 Basophils/100 WBC (Bld) 0.5 % 0-1 [facility] Chloride [Moles/Vol] 108 mmol/L 98-107 [facility] Eosinophils/100 WBC (Bld) 0.5 % 0-5 [facility] Glucose [Mass/Vol] 90 mg/dL 74-106 [facility] Neutrophils (Bld) [#/Vol] 2.4 10*3/uL 2.0-7.7 [facility] Neutrophils/100 WBC (Bld) 64.0 % 47-70 [facility] Potassium [Moles/Vol] 3.8 mmol/L 3.5-5.1 [facility] Sodium [Moles/Vol] 140 mmol/L 136-145 [facility] WBC (Bld) [#/Vol] 3.8 10*3/uL 4.4-11.0 [facility] Bilirubin Test strip Ql (U)O rdered By: Dimitri Jerez on 03-06-2023 Bilirubin Ql (U) Negative Negative [facility] Blood erythrocytes count (nu mber/volume)Ordered By: Dimitri Jerez on 03-06-2023 RBC (Bld) [#/Vol] 3.45 10*6/uL 4.2-5.4 [facility] Blood hemoglobin measurement (mass/volume)Ordered By: Dimitri Jerez on 03-06-2023 Hemoglobin (Bld) [Mass/Vol] 10.7 g/dL 12.0-15.0 [facility] Blood lymphocytes/100 leukoc ytesOrdered By: Dimitri Jerez on 03-06-2023 Lymphocytes/100 WBC (Bld) 28.9 % 19-41 [facility] Blood monocytes/100 leukocyt esOrdered By: Dimitri Jerez on 03-06-2023 Monocytes/100 WBC (Bld) 5.8 % 0-10 [facility] Blood platelet mean volumeOr dered By: Dimitri Jerez on 03-06-2023 Platelet mean volume (Bld) [Entitic vol] 8.9 fL 6.2-12.0 [facility] CBC W/Diff, Automatedon 02-07 Absolute Lymph 1.10 X10 3/uL Normal 0.83-4.51 [facility] Comment on above: Performed By: #### L 100.0100, B882-1 #### [facility] [address] [place], [address] Absolute Neut 2.4 X10 3/uL Normal 2.0-7.7 [facility] Comment on above: Performed By: #### L 100.0100, B882-1 #### [facility] [address] [place], [address] Basophils/100 WBC (Bld) 0.5 % Normal 0-1 [facility] Comment on above: Performed By: #### L 100.0100, B882-1 #### [facility] [address] [place], [address] Eosinophils/100 WBC (Bld) 0.5 % Normal 0-5 [facility] Comment on above: Performed By: #### L 100.0100, B882-1 #### [facility] [address] [place], [address] Erythrocyte distribution width (RBC) [Ratio] 12.6 % Normal 11.6-14.6 [facility] Comment on above: Performed By: #### L 100.0100, B882-1 #### [facility] [address] [place], [address] Hematocrit (Bld) [Volume fraction] 30.9 % Low 37-47 [facility] Comment on above: Performed By: #### L 100.0100, B882-1 #### [facility] [address] [place], [address] Hemoglobin (Bld) [Mass/Vol] 10.7 g/dL Low 12.0-15.0 [facility] Comment on above: Performed By: #### L 100.0100, B882-1 #### [facility] [address] [place], [address] IG% 0.300 Normal 0.0-0.9 [facility] Comment on above: Result Comment: IG% - Immature Granulocytes (promyelocytes, myelocytes and metamyelocytes) > 1% indicates that a LEFT SHIFT is Present. Performed By: #### L 100.0100, B882-1 #### [facility] [address] [place], [address] Lymphocytes/100 WBC (Bld) 28.9 % Normal 19-41 [facility] Comment on above: Performed By: #### L 100.0100, B882-1 #### [facility] [address] [place], [address] MCH (RBC) [Entitic mass] 31.0 pg Normal 27.0-32.0 [facility] Comment on above: Performed By: #### L 100.0100, B882-1 #### [facility] [address] [place], [address] MCHC (RBC) [Mass/Vol] 34.6 g/dL Normal 32-36 [facility] Comment on above: Performed By: #### L 100.0100, B882-1 #### [facility] [address] [place], [address] MCV (RBC) [Entitic vol] 89.6 fL Normal 81-99 [facility] Comment on above: Performed By: #### L 100.0100, B882-1 #### [facility] [address] [place], [address] Monocytes/100 WBC (Bld) 5.8 % Normal 0-10 [facility] Comment on above: Performed By: #### L 100.0100, B882-1 #### [facility] [address] [place], [address] Neutrophils/100 WBC (Bld) 64.0 % Normal 47-70 [facility] Comment on above: Performed By: #### L 100.0100, B882-1 #### [facility] [address] [place], [address] Nucleated RBC (Bld) [#/Vol] 0 10*3/uL Normal 0-5 [facility] Comment on above: Performed By: #### L 100.0100, B882-1 #### [facility] [address] [place], [address] Platelet mean volume (Bld) [Entitic vol] 8.9 fL Normal 6.2-12.0 [facility] Comment on above: Performed By: #### L 100.0100, B882-1 #### [facility] [address] [place], [address] Platelets (Bld) [#/Vol] 141 10*3/uL Low 150-450 [facility] Comment on above: Performed By: #### L 100.0100, B882-1 #### [facility] [address] [place], [address] RBC (Bld) [#/Vol] 3.45 10*6/uL Low 4.2-5.4 [facility] Comment on above: Performed By: #### L 100.0100, B882-1 #### [facility] [address] [place], [address] RDW SD 40.8 fl Normal 35.1-43.9 [facility] Comment on above: Performed By: #### L 100.0100, B882-1 #### [facility] [address] [place], [address] WBC (Bld) [#/Vol] 3.8 10*3/uL Low 4.4-11.0 [facility] Comment on above: Performed By: #### L 100.0100, B882-1 #### [facility] [address] [place], [address] Determination of erythrocyte mean corpuscular volume (MCV)Ordered By: Dimitri Jerez on 03-06-2023 MCV (RBC) [Entitic vol] 89.6 fL 81-99 [facility] Summary on 03-06-2023 Emergency Department Summary [facility] Medical Records Department [address] [place] [address] Emergency Department Summary 03/06/23 MR#: [id number] Acct: [id number] Name: ROSI SINGLETON Rep #: [id number] : 1990 32 From: Dimitri Jerez DO PCP: Care Physician,No Primary Status:DEP ER Location: ED HPI HPI - Female History of Present Illness Chief Complaint: Vag Bleeding PFSH PFSH Medical History (Updated 03/06/23 @ 18:21 by Dayana Olivares) Anemia Syncopal episodes Home Medications metoclopramide HCl 10 mg tablet 10 mg PO 4X/DAY PRN Headache #20 tabs 10/06/19 [Rx Last Taken Unknown] norethindrone acetate 1 mg-ethinyl estradiol 20 mcg tablet 1 tab PO DAILY 10/06/19 [History Last Taken Unknown] Allergy/AdvReac Type Severity Reaction Status Date / Time No Known Allergies Allergy Verified 03/06/23 17:54 Social History Smoking Status: Never smoker EXAM Physical Exam Const Vital Signs: 03/06/23 17:55 03/06/23 20:23 Temperature 97.2 F L Temperature Source Temporal Pulse Rate 98 82 Respiratory Rate 14 16 Blood Pressure 116/72 129/88 H Blood Pressure Mean 86 101 Pulse Ox 100 97 Oxygen Delivery Method Room Air [facility] MDM MDM Narrative Medical decision making narrative: HISTORY OF PRESENT ILLNESS: 32-year-old female presents with vaginal bleeding. Notes she think she is on her period. Started menstrual cycle on Thursday. Notes things were normal. Then she developed heavier bleeding today soaking through 2 sets of pads prior to arrival. Denies any chest pain, shortness of breath, syncope, fatigue. Denies any abdominal pain. Denies blood thinners REVIEW OF SYSTEMS: Pertinent positives: Vaginal bleeding Pertinent negatives: Pain, chest pain, shortness breath, fatigue, lightheadedness, syncope PHYSICAL EXAM: Nursing triage notes reviewed, Vital signs reviewed Constitutional: please see mdm HENT: MMM Eyes: Pupils equal round and reactive to light, Extraocular muscles intact Neck: No stridor, no JVD, full neck ROM Lungs: Clear to auscultation, No wheezing or rales. No increased work of breathing, no conversational dyspnea, no accessory muscle use, no nasal flaring. No respiratory distress noted Heart: Regular rate and rhythm, No murmurs, No rubs and No gallops, 2+ distal pulses (radial, femoral, posterior tibial) in all extremities Abdomen: Soft, there is no tenderness, rigidity, rebound or guarding, no obvious peritoneal signs, no palpable pulsatile abdominal masses, no auscultated abdominal bruit : No CVAT Extremities: No edema Neuro: No focal neurological deficits, cranial nerves II through XII intact, 5/5 strength in all extremities. Intact sensation to light touch in all extremities, 2+ reflexes bilateral patella tendons. Normal gait. No ataxia. Skin: No rash or lesions noted MEDICAL DECISION MAKING: Chief Complaint: Vaginal bleeding External records reviewed: Prior labs reviewed: Baseline hemoglobin 1.7 from 2020 Factors affecting care: none, no blood thinners Social determinants of health: none History obtained from others: none Consults: none MDM Narrative: 32-year-old female presents with heavy vaginal bleeding. Abdominal exam is benign I considered the following differential diagnosis: Anemia, , ectopic , abnormal uterine bleeding I obtained a broad lab workup to further elucidate the etiology of the patient's complaints ALL IMAGES (IF OBTAINED) HAVE BEEN PERSONALLY REVIEWED AND INTERPRETED BY MYSELF. CBC shows no leukocytosis, mild stable anemia, noted mild thrombocytopenia similar to prior BMP without evidence of significant electrolyte abnormalities, no anion gap, no acute kidney injury. Urinalysis shows no evidence of urinary inflammation suggestive of UTI Urine test is negative The synthesis of the patient's history, physical exam labs suggest no life-threatening etiology likely abnormal uterine bleeding. Indication for transfusion or further ED evaluation or admission at this time. Patient is appropriate discharge home with close OB follow-up. The patient and/or family, caregivers express understanding. The patient and/or family, caregivers agrees with the plan. Shared decision making: I will have a discussion with the patient and or visitors regarding risk/benefits of further testing or admission. They will be made aware of of the risk/benefits inherent in this decision they will be given the opportunity to voice understanding. Total critical care time today provided was at least 0 minutes. This excludes separately billable procedures. Critical care time (if documented) is secondary to the patient having high probability of clinically significant/life threatening deterioration in the patient's condition which required (more content not included)... Normal [facility] Hematocrit Auto (Bld) [Volum e fraction]Ordered By: Dimitri Jerez on 03-06-2023 Hematocrit (Bld) [Volume fraction] 30.9 % 37-47 [facility] Ketones Test strip Ql (U)Ord ered By: Dimitri Jerez on 03-06-2023 Ketones Ql (U) Negative Negative [facility] - Chemistry and C hemistry - challengeOrdered By: Dimitri Jerez on 03-06-2023 HCG ( test) Ql (U) Negative [facility] Comment on above: Very dilute urine sp ecimens, as indicated by a low specificgravity, may not contain automotive sales representative levels of hCG. If is still suspected, a first morning urinespecimen should be collected 48 hours later and tested. CO2 [Moles/Vol] 28.0 mmol/L 21.0-32.0 [facility] Urea nitrogen/Creatinine [Mass ratio] 13.8 mg/mg 10-20 [facility] - Hematology and Cell countsOrdered By: Dimitri Jerez on 03-06-2023 Erythrocyte distribution width (RBC) [Entitic vol] 40.8 fL 35.1-43.9 [facility] Erythrocyte distribution width (RBC) [Ratio] 12.6 % 11.6-14.6 [facility] Immature granulocytes/100 WBC (Bld) 0.300 % 0.0-0.9 [facility] Comment on above: IG% - Immature Granu locytes (promyelocytes, myelocytes and metamyelocytes) > 1% indicates that a LEFT SHIFT is Present. MCH (RBC) [Entitic mass] 31.0 pg 27.0-32.0 [facility] Nucleated RBC/100 WBC (Bld) [Ratio] 0 % 0-5 [facility] MCHC Auto (RBC) [Mass/Vol]Or dered By: Dimitri Jerez on 03-06-2023 MCHC (RBC) [Mass/Vol] 34.6 g/dL 32-36 [facility] Nitrite Test strip Ql (U)Ord ered By: Dimitri Jerez on 03-06-2023 Nitrite Ql (U) Negative Negative [facility] No Panel InformationOrdered By: Dimitri Jerez on 03-06-2023 Estimated Creatinine Clearance Calc 87.18 ml/min [facility] Estimated GFR (MDRD) Amer 106 mL/min >60 [facility] Comment on above: GFR Calc Estimated GFR (MDRD) Non-Af Amer 88 mL/min >60 [facility] Comment on above: Non- GFR Calc Platelets bldOrdered By: Yakov Jerez on 03-06-2023 Platelets (Bld) [#/Vol] 141 10*3/uL 150-450 [facility] ,Urineon 03-06-2023 Beta HCG ( test) Ql (U) Negative Normal [facility] Comment on above: Order Comment: CLEAN CATCH Result Comment: Very dilute urine specimens, as indicated by a low specific gravity, may not contain automotive sales representative levels of hCG. If is still suspected, a first morning urine specimen should be collected 48 hours later and tested. Performed By: #### L 503.6550, L100.0100, L503.6030 #### [facility] [address] [place], [place], [address] Protein Test strip Ql (U)Ord ered By: Dimitri Jerez on 03-06-2023 Protein Ql (U) 100 mg/dl Negative [facility] Serum or plasma calcium home urement (mass/volume)Ordered By: Dimitri Jerez on 03-06-2023 Calcium [Mass/Vol] 9.5 mg/dL 8.5-10.1 [facility] Serum or plasma creatinine m easurement (mass/volume)Ordered By: Dimitri Jerez on 03-06-2023 Creatinine [Mass/Vol] 0.80 mg/dL 0.55-1.02 [facility] Comment on above: The validity of the calculated GFR & GFRAA in patients over 70 years has not been determined. Clinical correlation is essential. Serum or plasma urea nitroge n measurement (mass/volume)Ordered By: Dimitri Jerez on 03-06-2023 Urea nitrogen [Mass/Vol] 11 mg/dL 7-18 [facility] Thin prep Papanicolaou smear with manual screeningOrdered By: Dimitri Jerez on 03-06-2023 Thin prep Papanicolaou smear with manual screening 4 5-15 [facility] Urinalysis, Routine (Dipstic k)on 03-06-2023 Color (U) SEE COMMENT BELOW Normal Yellow [facility] Comment on above: Order Comment: CLEAN CATCH Result Comment: Visu al Urine Color: PINK Performed By: #### L 503.6550, L100.0100, L503.6030 #### [facility] [address] [place], [address] BILIRUBIN URINE Negative Normal Negative [facility] Comment on above: Order Comment: CLEAN CATCH Performed By: #### L 503.6550, L100.0100, L503.6030 #### [facility] [address] [place], [address] Clarity (U) Cloudy Normal Clear [facility] Comment on above: Order Comment: CLEAN CATCH Performed By: #### L 503.6550, L100.0100, L503.6030 #### [facility] [address] [place], [address] GLUCOSE, UR Normal Normal Normal [facility] Comment on above: Order Comment: CLEAN CATCH Performed By: #### L 503.6550, L100.0100, L503.6030 #### [facility] [address] [place], [address] KETONE UR Negative Normal Negative [facility] Comment on above: Order Comment: CLEAN CATCH Performed By: #### L 503.6550, L100.0100, L503.6030 #### [facility] [address] [place], [address] LEUK ESTERASE 25 /ul Abnormal Negative [facility] Comment on above: Order Comment: CLEAN CATCH Performed By: #### L 503.6550, L100.0100, L503.6030 #### [facility] [address] [place], [address] Nitrite Ql (U) Negative Normal Negative [facility] Comment on above: Order Comment: CLEAN CATCH Performed By: #### L 503.6550, L100.0100, L503.6030 #### [facility] [address] [place], [address] OCCULT BLOOD-UR 250 /ul Abnormal Negative [facility] Comment on above: Order Comment: CLEAN CATCH Performed By: #### L 503.6550, L100.0100, L503.6030 #### [facility] [address] [place], [address] pH UR 7.0 Normal 5.0 - 8.0 [facility] Comment on above: Order Comment: CLEAN CATCH Performed By: #### L 503.6550, L100.0100, L503.6030 #### [facility] [address] [place], [address] PROT DIPSTX 100 mg/dl Abnormal Negative [facility] Comment on above: Order Comment: CLEAN CATCH Performed By: #### L 503.6550, L100.0100, L503.6030 #### [facility] [address] [place], [address] SP.GR. DIPSTX 1.010 Normal 1.002-1.030 [facility] Comment on above: Order Comment: CLEAN CATCH Performed By: #### L 503.6550, L100.0100, L503.6030 #### [facility] [address] [place], [address] UROBILI Normal Normal Normal [facility] Comment on above: Order Comment: CLEAN CATCH Performed By: #### L 503.6550, L100.0100, L503.6030 #### [facility] [address] [place], [address] Urine blood detectionOrdered By: Dimitri Jerez on 03-06-2023 RBC Ql (U) 250 /ul Negative [facility] Urine clarityOrdered By: Yakov Jerez on 03-06-2023 Clarity (U) Cloudy Clear [facility] Urine color determinationOrd ered By: Dimitri Jerez on 03-06-2023 Color (U) SEE COMMENT BELOW Yellow [facility] Comment on above: Visual Urine Color: PINK Urine glucose detectionOrder ed By: Dimitri Jerez on 03-06-2023 Glucose Ql (U) Normal mg/dl Normal [facility] Urine leukocyte esterase det ection by dipstickOrdered By: Dimitri Jerez on 03-06-2023 Leukocyte esterase Test strip Ql (U) 25 /ul Negative [facility] Urine pHOrdered By: Dimitri looney on 03-06-2023 pH (U) 7.0 [pH] 5.0 - 8.0 [facility] Urine specific gravity measu rementOrdered By: Dimitri Jerez on 03-06-2023 Specific gravity (U) [Rel density] 1.010 1.002-1.030 [facility] Urobilinogen Auto test strip Ql (U)Ordered By: Dimitri Jerez on 03-06-2023 Urobilinogen Ql (U) Normal mg/dl Normal [facility] STREP A MOLECULAR (POC)on Procedural Control Valid [facility] Strep A (POCT) Negative Negative [facility] STREP A MOLECULAR (POC)on Procedural Control Valid [facility] Strep A (POCT) Negative Negative [facility] Vital Signs Date Time Vital Sign Value Performing Clinician Facility 03-26-2024 12:13-0500 Body mass index (BMI) [Ratio] 21.95 kg/m2 Dixie Mari APRN.[employer] Work Phone: [facility] 03-26-2024 12:13-0500 Body temperature 98.91 [degF] Dixie Mari APRN.[employer] Work Phone: [facility] 03-26-2024 12:13-0500 Body weight 58 kg Dixie Mari DIE [employer]ELDER[employer] Work Phone: [facility] 03-26-2024 12:13-0500 Diastolic blood pressure 75 mm[Hg] Dixie Mari D[employer]ELDER[employer] Work Phone: [facility] 03-26-2024 12:13-0500 Heart rate 82 /min Dixie Mari [employer] Work Phone: [facility] 03-26-2024 12:13-0500 Respiratory rate 18 /min Dixie Mari D[employer] Work Phone: [facility] 03-26-2024 12:13-0500 SaO2% (BldA) [Mass fraction] 99 % Dixie Mari APRN.CNP Work Phone: [facility] 03-26-2024 12:13-0500 Systolic blood pressure 121 mm[Hg] Dixie aMri APRN.CNP Work Phone: [facility] 05-22-2023 11:17-0400 Body height 162.56 cm No Primary Care Physician [facility] 05-22-2023 11:12-0400 Body mass index (BMI) [Ratio] 22.5 kg/m2 No Primary Care Physician [facility] 05-22-2023 11:12-0400 Body weight 59.53 kg No Primary Care Physician [facility] 05-22-2023 11:12-0400 Diastolic blood pressure 74 mm[Hg] No Primary Care Physician [facility] 05-22-2023 11:12-0400 Systolic blood pressure 110 mm[Hg] No Primary Care Physician [facility] 05-15-2023 19:27-0500 Body temperature 97.3 [degF] No Primary Care Physician [facility] 05-15-2023 19:27-0500 Diastolic blood pressure 76 mm[Hg] No Primary Care Physician [facility] 05-15-2023 19:27-0500 Heart rate 64 /min No Primary Care Physician [facility] 05-15-2023 19:27-0500 Respiratory rate 16 /min No Primary Care Physician [facility] 05-15-2023 19:27-0500 SaO2% (BldA) [Mass fraction] 99 % No Primary Care Physician [facility] 05-15-2023 19:27-0500 Systolic blood pressure 124 mm[Hg] No Primary Care Physician [facility] 05-15-2023 18:31-0500 Body height 162.56 cm No Primary Care Physician [facility] 05-15-2023 18:31-0500 Body mass index (BMI) [Ratio] 23.1 kg/m2 No Primary Care Physician [facility] 05-15-2023 18:31-0500 Body weight 60.97 kg No Primary Care Physician [facility] 05-04-2023 15:57-0500 Body mass index (BMI) [Ratio] 22.8 kg/m2 No Primary Care Physician [facility] 05-04-2023 15:57-0500 Body temperature 98.9 [degF] No Primary Care Physician [facility] 05-04-2023 15:57-0500 Body weight 60.38 kg No Primary Care Physician [facility] 05-04-2023 15:57-0500 Diastolic blood pressure 70 mm[Hg] No Primary Care Physician [facility] 05-04-2023 15:57-0500 Heart rate 100 /min No Primary Care Physician [facility] 05-04-2023 15:57-0500 Respiratory rate 18 /min No Primary Care Physician [facility] 05-04-2023 15:57-0500 SaO2% (BldA) [Mass fraction] 100 % No Primary Care Physician [facility] 05-04-2023 15:57-0500 Systolic blood pressure 111 mm[Hg] No Primary Care Physician [facility] 04-27-2023 16:04-0500 Body height 162.56 cm No Primary Care Physician [facility] 04-27-2023 16:03-0500 Body mass index (BMI) [Ratio] 22.6 kg/m2 No Primary Care Physician [facility] 04-27-2023 16:03-0500 Body temperature 98.8 [degF] No Primary Care Physician [facility] 04-27-2023 16:03-0500 Body weight 59.95 kg No Primary Care Physician [facility] 04-27-2023 16:03-0500 Diastolic blood pressure 71 mm[Hg] No Primary Care Physician [facility] 04-27-2023 16:03-0500 Heart rate 86 /min No Primary Care Physician [facility] 04-27-2023 16:03-0500 Respiratory rate 18 /min No Primary Care Physician [facility] 04-27-2023 16:03-0500 SaO2% (BldA) [Mass fraction] 100 % No Primary Care Physician [facility] 04-27-2023 16:03-0500 Systolic blood pressure 116 mm[Hg] No Primary Care Physician [facility] 04-03-2023 14:27-0500 Body height 162.56 cm No Primary Care Physician [facility] 04-03-2023 14:18-0500 Body mass index (BMI) [Ratio] 22.1 kg/m2 No Primary Care Physician [facility] 04-03-2023 14:18-0500 Body weight 58.51 kg No Primary Care Physician [facility] 04-03-2023 14:18-0500 Diastolic blood pressure 77 mm[Hg] No Primary Care Physician [facility] 04-03-2023 14:18-0500 Systolic blood pressure 121 mm[Hg] No Primary Care Physician [facility] 03-06-2023 20:23-0500 Diastolic blood pressure 88 mm[Hg] [facility] 03-06-2023 20:23-0500 Heart rate 82 /min [facility] 03-06-2023 20:23-0500 Respiratory rate 16 /min [facility] 03-06-2023 20:23-0500 SaO2% (BldA) [Mass fraction] 97 % [facility] 03-06-2023 20:23-0500 Systolic blood pressure 129 mm[Hg] [facility] 03-06-2023 17:55-0500 Body height 162.56 cm [facility] 03-06-2023 17:55-0500 Body mass index (BMI) [Ratio] 22.9 kg/m2 [facility] 03-06-2023 17:55-0500 Body temperature 97.2 [degF] [facility] 03-06-2023 17:55-0500 Body weight 60.7 kg [facility] 01-13-2023 19:11-0500 Body temperature 97.59 [degF] Domenic Guo [employer] Work Phone: [facility] 01-13-2023 19:11-0500 Body weight 59.33 kg Domenic Brant [employer] Work Phone: [facility] 01-13-2023 19:11-0500 Diastolic blood pressure 74 mm[Hg] Domenic Brant [employer] Work Phone: [facility] 01-13-2023 19:11-0500 Heart rate 82 /min Domenic Brant [employer] Work Phone: [facility] 01-13-2023 19:11-0500 Respiratory rate 18 /min Domenic Brant [employer] Work Phone: [facility] 01-13-2023 19:11-0500 SaO2% (BldA) [Mass fraction] 99 % Domenic Guo [employer] Work Phone: [facility] 01-13-2023 19:11-0500 Systolic blood pressure 110 mm[Hg] Domenic Guo [employer] Work Phone: [facility] 01-03-2023 09:37-0400 Body temperature 97.7 [degF] Thao Dash [employer] Work Phone: [facility] 01-03-2023 09:37-0400 Body weight 59.42 kg Thao Billings [employer] Work Phone: [facility] 01-03-2023 09:37-0400 Diastolic blood pressure 66 mm[Hg] Thao Dash [employer] Work Phone: [facility] 01-03-2023 09:37-0400 Heart rate 97 /min Thao Billings [employer] Work Phone: [facility] 01-03-2023 09:37-0400 Respiratory rate 16 /min Thao Dash [employer] Work Phone: [facility] 01-03-2023 09:37-0400 SaO2% (BldA) [Mass fraction] 98 % Thao Dash [employer] Work Phone: [facility] 01-03-2023 09:37-0400 Systolic blood pressure 110 mm[Hg] Thao Dash [employer] Work Phone: [facility] 06-14-2022 10:58-0400 Body temperature 96.49 [degF] Rabia Dumont PA-C Work Phone: [facility] 06-14-2022 10:58-0400 Body weight 60.06 kg Rabia Dumont PA-C Work Phone: [facility] 06-14-2022 10:58-0400 Diastolic blood pressure 62 mm[Hg] Rabia Athy PA-C Work Phone: [facility] 06-14-2022 10:58-0400 Heart rate 81 /min Rabia Athy PA-C Work Phone: [facility] 06-14-2022 10:58-0400 Respiratory rate 18 /min Rabia Athy PA-C Work Phone: [facility] 06-14-2022 10:58-0400 SaO2% (BldA) [Mass fraction] 98 % Rabia Athy PA-C Work Phone: [facility] 06-14-2022 10:58-0400 Systolic blood pressure 110 mm[Hg] Rabia Athy PA-C Work Phone: [facility] 12-14-2021 12:13-0400 Body temperature 99.1 [degF] Dixie Mari [employer] Work Phone: [facility] 12-14-2021 12:13-0400 Body weight 58.51 kg Dixie Mari [employer] Work Phone: [facility] 12-14-2021 12:13-0400 Diastolic blood pressure 80 mm[Hg] Dixie Mari [employer] Work Phone: [facility] 12-14-2021 12:13-0400 Heart rate 97 /min Dixie Mari [employer] Work Phone: [facility] 12-14-2021 12:13-0400 Respiratory rate 16 /min Dixie Mari [employer] Work Phone: [facility] 12-14-2021 12:13-0400 SaO2% (BldA) [Mass fraction] 99 % Dixie Mari [employer] Work Phone: [facility] 12-14-2021 12:13-0400 Systolic blood pressure 128 mm[Hg] Dixie Mari D[employer] Work Phone: [facility] 10-30-2021 11:24-0400 Body height 162.6 cm Ursula Older DIE WELDER.[employer] Work Phone: [facility] 10-30-2021 11:240400 Body weight 57.15 kg Ursula Older DIE WELDER.[employer] Work Phone: [facility] 10-30-2021 11:24-0400 Diastolic blood pressure 72 mm[Hg] Ursula Older DIE WELDER.[employer] Work Phone: [facility] 10-30-2021 11:24-0400 Heart rate 102 /min Ursula Older DIE WELDER.[employer] Work Phone: [facility] 10-30-2021 11:24-0400 Respiratory rate 16 /min Ursula Older DIE WELDER.[employer] Work Phone: [facility] 10-30-2021 11:24-0400 Systolic blood pressure 122 mm[Hg] Ursula Older DIE WELDER.[employer] Work Phone: [facility] Encounters Encounter Date Encounter Type Care Provider Facility Start: 10-10-2024 End: 10-10-2024 Patient encounter procedure Emmanuel Serra OD Work Phone: Ophthalmology Comment on above: Vitreous floaters of both eyes (Primary Dx); Myopia, bilateral Start: 10-10-2024 End: 10-10-2024 ambulatory EMMANUEL SERRA Facility:[facility] Start: 03-26-2024 End: 03-26-2024 ambulatory EMMANUEL SERRA Facility:[facility] Start: 03-26-2024 End: 03-26-2024 Patient encounter procedure Dixie Mari DIE WELDER.[employer] Work Phone: [facility] Comment on above: Acute otitis media, right (Primary Dx); URI, acute Start: 02-03-2024 End: 02-03-2024 ambulatory No Primary Care Physician Facility:[facility] Start: 12-29-2023 End: 12-29-2023 ambulatory No Primary Care Physician [facility] Start: 11-27-2023 Encounter for gynecological examination (general) (routine) with abnormal findings Renate [facility] Start: 11-27-2023 End: 11-27-2023 ambulatory No Primary Care Physician Facility[facility] Start: 11-27-2023 End: 11-27-2023 ambulatory No Primary Care Physician Facility:[facility] Start: 07-27-2023 End: 07-27-2023 ambulatory No Primary Care Physician Facility[facility] Start: 05-22-2023 Non-patient / Non-visit No Loreta cornell Care Physician [facility] Start: 05-22-2023 End: 05-22-2023 ambulatory No Primary Care Physician [facility] Work Phone: Start: 05-22-2023 End: 05-22-2023 Patient encounter procedure No Primary Care Physician [facility]Cardi[facility] Work Phone: Start: 05-22-2023 End: 05-22-2023 Patient encounter procedure No Primary Care Physician [facility] Work Phone: Start: 05-22-2023 End: 05-22-2023 ambulatory No Primary Care Physician Facility[facility] Start: 05-22-2023 End: 05-22-2023 [facility] Start: 05-15-2023 End: 05-15-2023 Emergency department patient visit No Primary Care Physician [facility] Work Phone: Start: 05-15-2023 End: 05-15-2023 Patient encounter procedure Gio ROBERTS Work Phone: [facility] Comment on above: Procedure not scott d out (Primary Dx) Start: 05-04-2023 End: 05-04-2023 Patient encounter procedure No Primary Care Physician [facility] Work Phone: Start: 05-04-2023 End: 05-04-2023 ambulatory No Primary Care Physician Facility[facility] Start: 04-28-2023 Registered Recurring No Primar y Care Physician [facility] Start: 04-27-2023 End: 04-27-2023 Patient encounter procedure No Primary Care Physician [facility] Work Phone: Start: 04-27-2023 End: 04-27-2023 ambulatory No Primary Care Physician Facility:[facility] Start: 04-24-2023 End: 04-24-2023 ambulatory No Primary Care Physician [facility] Work Phone: Start: 04-24-2023 End: 04-24-2023 Patient encounter procedure No Primary Care Physician [facility]Ul[facility]ound, [facility] Work Phone: Start: 04-24-2023 End: 04-24-2023 ambulatory No Primary Care Physician Facility:[facility] Start: 04-03-2023 End: 04-03-2023 ambulatory No Primary Care Physician [facility] Work Phone: Start: 04-03-2023 End: 04-03-2023 Patient encounter procedure No Primary Care Physician [facility]Laboratory Work Phone: Start: 04-03-2023 End: 04-03-2023 Patient encounter procedure No Primary Care Physician [facility] Work Phone: Start: 04-03-2023 End: 04-03-2023 ambulatory No Primary Care Physician Facility[facility] Start: 04-03-2023 End: 04-03-2023 ambulatory No Primary Care Physician Facility:[facility] Start: 03-19-2023 End: 03-19-2023 ambulatory [facility] Work Phone: Start: 03-19-2023 End: 03-19-2023 Patient encounter procedure [facility], [facility] Work Phone: Start: 03-19-2023 End: 03-19-2023 ambulatory No Primary Care Physician Facility:[facility] Start: 03-13-2023 End: 03-13-2023 ambulatory [facility] Work Phone: Start: 03-13-2023 End: 03-13-2023 Patient encounter procedure [facility] Work Phone: Start: 03-13-2023 End: 03-13-2023 ambulatory No Primary Care Physician Facility:[facility] Start: 03-06-2023 End: 03-06-2023 Emergency department patient visit [facility] Work Phone: Start: 01-13-2023 End: 01-13-2023 Patient encounter procedure Domenic King JUNIEN.TIAGO Work Phone: [facility] Comment on above: URI, acute (Primary Dx) Start: 01-03-2023 End: 01-03-2023 Patient encounter procedure Thao Bowling DIE WELDER.[employer] Work Phone: [facility] Comment on above: Sore throat (Primary Dx) Start: 06-14-2022 End: 06-14-2022 Patient encounter procedure Rabia Dumont PA-C Work Phone: [facility] Comment on above: Acute otitis externa of left ear, unspecified type (Primary Dx); Post-nasal drip Start: 12-14-2021 End: 12-14-2021 Patient encounter procedure Dixie Mari APRN.[employer] Work Phone: [facility] Comment on above: Pharyngitis, unspeci fied etiology (Primary Dx) Start: 10-30-2021 End: 10-30-2021 Patient encounter procedure Ursuladana Britton DIE WELDER.[employer]NER Work Phone: [facility] Comment on above: Palpitations (Primar y Dx); Vitreous floaters, unspecified laterality; Tachycardia; Encounter for physical examination related to employment Procedures Date Procedure Procedure Detail Performing Clinician Start: 05-15-2023 Radiography of ankle No Primary Care Physician Start: 04-28-2023 Measurement of occul t blood in stool specimen using immunoassay No Primary Care Physician Start: 04-24-2023 Transvaginal echography No Primary Care Physician Start: 03-19-2023 Pelvic echography Start: 01-03-2023 STREP A MOLECULAR (POC) [facility] Provider Start: 12-14-2021 STREP A MOLECULAR (POC) Dixie Mari APRN.[employer] Work Phone: Start: 10-30-2021 Ecg routine ecg w/le ast 12 lds w/i&r [facility] Provider Start: 10-28-2021 Adult depression scr eening assessment Ursula Older DIE WELDER.[employer] Work Phone: Plan of Treatment Date Care Activity Detail Author Start: 10-24-2026 Urine microalbumin profile [facility] Start: 10-13-2025 End: 10-13-2025 Patient encounter procedure 10/13/2025 9:30 AM EDT Office Visit [facility] [address] [place] [address] Emmanuel Serra, OD [address] [place] [address] Diagnostics[facility] [address] [place] [address] for complete eye exam. Ophthalmology Comment on above: for complete eye exam. Start: 11-07-2024 Influenza vaccination Influenza Vaccine (#1) [facility] Start: 04-15-2024 PAP TESTING PAP TESTING [facility] Start: 04-15-2024 Screening for malignant neoplasm of cervix Pap Testing [facility] Start: 11-08-2023 Covid-19 Vaccine ( season) Covid-19 Vaccine ( season) [facility] Start: 11-08-2023 Influenza vaccination Influenza Vaccine (#1) [facility] Start: 05-15-2023 [facility] Start: 04-03-2023 Patient referral [facility] Work Phone: Start: 03-09-2023 Depression Assessment Depression Assessment [facility] Start: 03-06-2023 [facility] Start: 11-07-2022 Influenza vaccination [facility] Start: 10-30-2022 COVID-19 VACCINE (#1) COVID-19 VACCINE (#1) [facility] Comment on above: Postponed from 1990 (Declined at t his time) Start: 10-30-2022 HEPATITIS B (1 of 3 - 3-dose series) HEPATITIS B (1 of 3 - 3-dose series) [facility] Comment on above: Postponed from 1990 (Declined at t his time) Start: 10-28-2022 Adult depression screening assessment DEPRESSION SCREENING [facility] Start: 04-15-2022 Screening for malignant neoplasm of cervix Cervical Cancer Screening [facility] Start: 03-09-2022 DEPRESSION ASSESSMENT DEPRESSION ASSESSMENT [facility] Start: 11-07-2021 Influenza vaccination INFLUENZA (#1) [facility] Start: 10-30-2021 End: 12-30-2021 CBC W Auto Differential panel - Blood [facility] Work Phone: Comment on above: Expected: 10/30/2021, Expires: 2 Start: 10-30-2021 End: 12-30-2021 Comprehensive metabolic 2000 panel - Serum or Plasma [facility] Work Phone: Comment on above: Expected: 10/30/2021, Expires: 2 Start: 10-30-2021 End: 12-30-2021 Thyrotropin [Units/volume] in Serum or Plasma [facility] Work Phone: Comment on above: Expected: 10/30/2021, Expires: 2 Start: 03-09-2021 DEPRESSION ASSESSMENT DEPRESSION ASSESSMENT [facility] Start: 2020 HPV TESTING HPV TESTING [facility] Start: 2020 Screening for malignant neoplasm of cervix HPV Testing [facility] Start: 2008 Anxiety Screening Anxiety Screening [facility] Start: 2008 Depression Screening Depression Screening [facility] Start: 1990 Covid-19 Vaccine (#1) Covid-19 Vaccine (#1) [facility] ALERE STREP A TEST (AG) ALERE ST REP A TEST (AG) Lab Routine Sore throat Ordered: 01/03/2023 [facility] Work Phone: Comment on above: Ordered: 01/03/2023 C reactive protein [Mass/volume] in Serum or Plasma [facility] CBC W Auto Different ial panel - Blood [facility] End: 10-30-2022 ECG COMPLETE ECG COMPLETE ECG Routine Palpitations Tachycardia 1 Occurrences starting 10/30/2021 until 10/30/2022 [facility] Work Phone: Comment on above: 1 Occurrences starting 10/30/2021 until 10/30/2022 ECG COMPLETE ECG COMPLETE ECG 10/30/2021 11:41 AM EDT [facility] End: 10-30-2022 Echocardiography ECHO Cardiology Routine Palpitations Tachycardia 1 Occurrences starting 10/30/2021 until 10/30/2022 [facility] Work Phone: Comment on above: 1 Occurrences starting 10/30/2021 until 10/30/2022 Erythrocyte sediment ation rate [facility] Ferritin [Mass/volum e] in Serum or Plasma [facility] Iron and Iron bindin g capacity panel - Serum or Plasma [facility] Lactate dehydrogenas e measurement [facility] Magnesium [Mass/volu me] in Serum or Plasma [facility] OUTSIDE VENDOR CARDI AC OUTPATIENT EXTENDED RHYTHM RECORDING (WITHOUT TELEMETRY) OUTSIDE VENDOR CARDIAC OUTPATIENT EXTENDED RHYTHM RECORDING (WITHOUT TELEMETRY) Holter Routine Palpitations Tachycardia Ordered: 10/30/2021 [facility] Work Phone: Comment on above: Ordered: 10/30/2021 Patient Education [facility] Work Phone: Patient referral [facility] Work Phone: Reticulocyte count [facility] Serum inorganic phos phate measurement [facility] US Pelvis [facility] US Pelvis transvaginal [facility] Vitamin B12 measurement [facility] Immunizations Immunization Date Immunization Notes Care Provider Fa cility 04-01-2019 influenza, injectabl e, quadrivalent, contains preservative Ursula Older DIE WELDER.[employer] Work Phone: [facility] 04-01-2019 influenza virus vaccine, unspecified formulation Thao Billings DIE WELDER.[employer] Work Phone: [facility] 10-24-2016 tetanus toxoid, redu noemy diphtheria toxoid, and acellular pertussis vaccine, adsorbed Ursula Older DIE WELDER.[employer] Work Phone: [facility] 12-19-2013 influenza, seasonal, injectable Ursula Older DIE WELDER.[employer] Work Phone: [facility] Work Phone: 01-02-2011 influenza virus vaccine, unspecified formulation Ursula Older DIE WELDER.[employer] Work Phone: [facility] Payers Date Payer Category Payer Self-pay [id number] 2014 Unknown [id number] 2012 Medicaid [id number] Unknown [id number] 2.16.8 [id number] Unknown [id number] 2.16.8 [id number] Unknown [id number] 2.16.8 [id number] Unknown [id number] 2.16.8 [id number] Unknown [id number] 2.16.8 [id number] Unknown [id number] 2.16.8 [id number] Unknown [id number] 2.16.8 [id number] Unknown [id number] 2.16.8 [id number] Unknown [id number] 2.16.8 [id number] Unknown [id number] 2.16.8 [id number] Unknown [id number] 2.16.8 [id number] Unknown [id number] 2.16.8 [id number] Unknown [id number] 2.16.8 [id number] Unknown [id number] 2.16.8 [id number] Unknown [id number] 2.16.8 [id number] Unknown [id number] 2.16.8 [id number] Unknown [id number] 2.16.8 [id number] Unknown [id number] 2.16.8 [id number] Social History Date Type Detail Facility Start: 10-30-2021 Tobacco smoking stat us NVIS Never smoked tobacco [facility] Start: 10-30-2021 Tobacco use and exposure Smokeless tobacco non-user [facility] Start: 10-30-2021 End: 10-10-2024 Alcohol intake Current non-drinker of alcohol (finding) [facility] Start: 10-29-2021 History SDOH Alcohol Frequency 2 [facility] Start: 10-29-2021 History SDOH Alcohol Std Drinks 1 [facility] Start: 10-29-2021 History SDOH Social Connections Phone 5 [facility] Start: 10-29-2021 History SDOH Social Connections [facility] Start: 10-29-2021 History SDOH Social Connections Living 7 [facility] Start: 10-29-2021 History SDOH Physica l Activity MPS 98 [facility] Start: 10-29-2021 History SDOH Financial 4 [facility] Start: 1990 Sex Assigned At Not on file C [facility] Start: 10-12-2021 End: 10-22-2021 Exposure to SARS-CoV-2 (event) Not sure [facility] Work Phone: Start: 10-28-2021 End: 10-10-2024 History of Social function [facility] Start: 10-28-2021 End: 10-10-2024 Social connection and isolation panel [facility] Do you belong to any clubs or organizations such as christianity groups, unions, fraternal or athletic groups, or school groups? No [facility] Are you now , , , , never or living with a partner? Never [facility] How often to you hav e a drink containing alcohol? Monthly or less [facility] How many standard drinks containing alcohol do you have on a typical day? 1 or 2 [facility] How often do you hav e 6 or more drinks on 1 occasion? Never [facility] How hard is it for y ou to pay for the very basics like food, housing, medical care, and heating Not very hard [facility] Adult Depression Screening Assessment 0 [facility] Do you feel stress - tense, restless, nervous, or anxious, or unable to sleep at night because your mind is troubled all the time - these days [OSQ] Not at all [facility] (I/We) worried whejuancarlos er (my/our) food would run out before (I/we) got money to buy more. Never true [facility] Start: 04-01-2019 Gender identity Identifies as female gender (finding) [facility] Work Phone: Start: 04-01-2019 Sexual orientation Heterosexual (ramona zurita) [facility] Work Phone: Start: 03-06-2023 End: 05-22-2023 Tobacco smoking status NHIS Unknown if ever smoked [facility] Start: 03-06-2023 None [facility] Start: 1990 Sex Assigned At Female [facility] NEGATED: Highlighted row [facility] Functional Status Date Assessment Result Facility 07-14-2014 Are you deaf, or do you have serious difficulty hearing No 07/14/2014 9:49 AM Maki Mendoza LPN No [facility] 07-14-2014 Are you blind, or do you have serious difficulty seeing, even when wearing glasses No 07/14/2014 9:49 AM Maki Mendoza LPN No [facility] 07-14-2014 Do you have serious difficulty walking or climbing stairs No 07/14/2014 9:49 AM Maki Mendoza LPN No [facility] 07-14-2014 Do you have difficul ty dressing or bathing No 07/14/2014 9:49 AM Maki Mendoza LPN No [facility] 07-14-2014 Because of a physica l, mental, or emotional condition, do you have difficulty doing errands alone such as visiting a physician's office or shopping No 07/14/2014 9:49 AM EDT Maki Monroy LPN No [facility] Mental Status Date Assessment Result Facility 07-14-2014 Because of a physica l, mental, or emotional condition, do you have serious difficulty concentrating, remembering, or making decisions No 07/14/2014 9:49 AM EDT Maki Monroy LPN No [facility] Clinical Notes 05-01-2011 to 10-10-2024 Emmanuel Serra, TONG - 10/10/2024 2:14 PM Dixie Turcios APRN.[employer] - 03/26/2024 12:15 PM Gio Bansal PA - 05/15/2023 6:20 PM Domenic Clements APRN.[employer] - 01/13/2023 7:16 PM EST Note Date & Type Note Facility 10-10-2024 History of Present illness Narrative 1. Vitreous floaters of both eyes (Primary) Stable vitreous floaters No holes/tears/RDs upon dilated, posterior and peripheral examination Educated pt Warned patient about signs/symptoms of retinal pathology and to call immediately with any sudden increase in flashes/floaters or curtain/veil over vision 2. Myopia, bilateral Continue with current glasses- patient possibly interested in contact lenses- planning on contacting in network provider for contacts/glasses exam Follow-up in 1 year or sooner as needed I have confirmed and edited as necessary the relevant HPI, ophthalmic history, ROS, and the neuro exam findings as obtained by others. I have seen and examined Rosi Lopez Areli. I have discussed the case and the management of this patient's care with the Resident/Fellow, if applicable. I also have reviewed and agree with the assessment and plan as stated above and agree with all of its relevant components. Emmanuel Serra OD October 10, 2024 2:14 PM documented in this encounter [facility] 10-10-2024 Note HNO ID: [id number] Author: EMMANUEL SERRA OD Service: ? Author Type: CONCR[employer]E [employer]ODU[employer] MACHINE OPERATOR Type: Progress Notes Filed: 10/10/2024 14:15 Note Text: 1. Vitreous floaters of both eyes (Primary) Stable vitreous floaters No holes/tears/RDs upon dilated, posterior and peripheral examination Educated pt Warned patient about signs/symptoms of retinal pathology and to call immediately with any sudden increase in flashes/floaters or curtain/veil over vision 2. Myopia, bilateral Continue with current glasses- patient possibly interested in contact lenses- planning on contacting in network provider for contacts/glasses exam Follow-up in 1 year or sooner as needed I have confirmed and edited as necessary the relevant HPI, ophthalmic history, ROS, and the neuro exam findings as obtained by others. I have seen and examined Rosi Singleton. I have discussed the case and the management of this patient's care with the Resident/Fellow, if applicable. I also have reviewed and agree with the assessment and plan as stated above and agree with all of its relevant components. Emmanuel Serra, OD October 10, 2024 2:14 PM [facility] 03-26-2024 Note HNO ID: [id number] Author: DIXIE MARI APRN.[employer] Service: ? Author Type: Nurse Practitioner Type: Progress Notes Filed: 03/26/2024 12:28 Note Text: This note was created using NoteWriter. Subjective Rosi Singleton is a 33 year old female. 33 year old female with PMH anemia presetns for illness Acute onset one week ago +scrathcy throat +hoarse voice +cough +non productive Increased feelings of feeling winded and short of breath +post nasal drainage Yesterday developed +right ear pain Denies tobacco usage Mucinex OTC Cough drops Denies relief + ill contacts The history is provided by the patient. No typesetting supervisor was used. Sinus Problem This is a new problem. The current episode started 1 to 4 weeks ago. The problem occurs constantly. The problem has been gradually worsening. Associated symptoms include chills, congestion, coughing, fatigue, headaches and a sore throat. Pertinent negatives include no abdominal pain, anorexia, arthralgias, change in bowel habit, chest pain, diaphoresis, fever, joint swelling, myalgias, nausea, neck pain, numbness, rash, swollen glands, urinary symptoms, vertigo, visual change, vomiting or weakness. Nothing aggravates the symptoms. Treatments tried: see HPI. Ear Pain This is a new problem. The current episode started in the past 7 days. The problem occurs constantly. The problem has been unchanged. Associated symptoms include chills, congestion, coughing, fatigue, headaches and a sore throat. Pertinent negatives include no abdominal pain, anorexia, arthralgias, change in bowel habit, chest pain, diaphoresis, fever, joint swelling, myalgias, nausea, neck pain, numbness, rash, swollen glands, urinary symptoms, vertigo, visual change, vomiting or weakness. Nothing aggravates the symptoms. The treatment provided no relief. PAST MEDICAL HISTORY Diagnosis Date Anemia Fractured bone RIGHT WRIST Gestational thrombocytopenia (HCC) 05/01/2011 Ovarian cyst 2019 PAST SURGICAL HISTORY Procedure Laterality Date NONE ALLERGIES Patient has no known allergies. MEDICATIONS ferrous bis-glycinate chelate (IRON BISGLYCINATE CHELATE) 28 mg iron cap Take 28 mg by mouth once daily. amoxicillin-clavulanate potassium (AUGMENTIN) 875-125 mg per tablet Take 1 tablet by mouth two times a day for 7 days. predniSONE (DELTASONE) 10 mg tablet Take 4 tabs daily for 3 days, then 2 tabs daily for 3 days, then 1 tab daily for 3 days with food. (Patient not taking: Reported on 03/26/2024) fluticasone (FLONASE) 50 mcg/actuation nasal spray Use [...] Never Smokeless tobacco: Never Vaping Use Vaping status: Never Used Substance Use Topics Alcohol use: No Drug use: No Review of Systems Constitutional: Positive for chills and fatigue. Negative for diaphoresis and fever. HENT: Positive for congestion and sore throat. Eyes: Negative for photophobia, pain, discharge, redness, itching and visual disturbance. Respiratory: Positive for cough. Negative for apnea, choking and chest tightness. Cardiovascular: Negative for chest pain. Gastrointestinal: Negative for abdominal pain, anorexia, change in bowel habit, nausea and vomiting. Musculoskeletal: Negative for arthralgias, joint swelling, myalgias and neck pain. Skin: Negative for rash. Allergic/Immunologic: Negative for environmental allergies, food allergies and immunocompromised state. Neurological: Positive for headaches. Negative for dizziness, vertigo, facial asymmetry, weakness and numbness. Hematological: Negative for adenopathy. Does not bruise/bleed easily. Psychiatric/Behavioral: Negative for agitation and behavioral problems. Objective BP 121/75 Pulse 82 Temp 37.2 ?C (98.9 ?F) Resp 18 Wt 58 kg (127 lb 13.9 oz) LMP 03/02/2024 (Exact Date) SpO2 99% BMI 21.95 kg/m? Physical Exam Vitals and nursing note reviewed. Constitutional: General: She is not in acute distress. Appearance: Normal appearance. She is normal weight. She is not ill-appearing, toxic-appearing or diaphoretic. HENT: Head: Normocephalic and atraumatic. Right Ear: Ear canal and external ear normal. Left Ear: Ear canal and external ear normal. Ears: Comments: Right TM erythematous and bulging Nose: Congestion present. No rhinorrhea. Mouth/Throat: Mouth: Mucous membranes are moist. Pharynx: Posterior oropharyngeal erythema present. No oropharyngeal exudate. Eyes: General: Right eye: No discharge. Left eye: No di (more content not included)... [facility] 03-26-2024 History of Present illness Narrative This note was created using [employer]. Subjective Rosi Singleton is a 33 year old female. 33 year old female with PMH anemia presetns for illness Acute onset one week ago +scrathcy throat +hoarse voice +cough +non productive Increased feelings of feeling winded and short of breath +post nasal drainage Yesterday developed +right ear pain Denies tobacco usage Mucinex OTC Cough drops Denies relief + ill contacts The history is provided by the patient. No typesetting supervisor was used. Sinus Problem This is a new problem. The current episode started 1 to 4 weeks ago. The problem occurs constantly. The problem has been gradually worsening. Associated symptoms include chills, congestion, coughing, fatigue, headaches and a sore throat. Pertinent negatives include no abdominal pain, anorexia, arthralgias, change in bowel habit, chest pain, diaphoresis, fever, joint swelling, myalgias, nausea, neck pain, numbness, rash, swollen glands, urinary symptoms, vertigo, visual change, vomiting or weakness. Nothing aggravates the symptoms. Treatments tried: see HPI. Ear Pain This is a new problem. The current episode started in the past 7 days. The problem occurs constantly. The problem has been unchanged. Associated symptoms include chills, congestion, coughing, fatigue, headaches and a sore throat. Pertinent negatives include no abdominal pain, anorexia, arthralgias, change in bowel habit, chest pain, diaphoresis, fever, joint swelling, myalgias, nausea, neck pain, numbness, rash, swollen glands, urinary symptoms, vertigo, visual change, vomiting or weakness. Nothing aggravates the symptoms. The treatment provided no relief. PAST MEDICAL HISTORY Diagnosis Date Anemia Fractured bone RIGHT WRIST Gestational thrombocytopenia (HCC) 05/01/2011 Ovarian cyst 2019 PAST SURGICAL HISTORY Procedure Laterality Date NONE ALLERGIES Patient has no known allergies. MEDICATIONS ferrous bis-glycinate chelate (IRON BISGLYCINATE CHELATE) 28 mg iron cap Take 28 mg by mouth once daily. amoxicillin-clavulanate potassium (AUGMENTIN) 875-125 mg per tablet Take 1 tablet by mouth two times a day for 7 days. predniSONE (DELTASONE) 10 mg tablet Take 4 tabs daily for 3 days, then 2 tabs daily for 3 days, then 1 tab daily for 3 days with food. (Patient not taking: Reported on 03/26/2024) fluticasone (FLONASE) 50 mcg/actuation nasal spray Use [...] Never Smokeless tobacco: Never Vaping Use Vaping status: Never Used Substance Use Topics Alcohol use: No Drug use: No Review of Systems Constitutional: Positive for chills and fatigue. Negative for diaphoresis and fever. HENT: Positive for congestion and sore throat. Eyes: Negative for photophobia, pain, discharge, redness, itching and visual disturbance. Respiratory: Positive for cough. Negative for apnea, choking and chest tightness. Cardiovascular: Negative for chest pain. Gastrointestinal: Negative for abdominal pain, anorexia, change in bowel habit, nausea and vomiting. Musculoskeletal: Negative for arthralgias, joint swelling, myalgias and neck pain. Skin: Negative for rash. Allergic/Immunologic: Negative for environmental allergies, food allergies and immunocompromised state. Neurological: Positive for headaches. Negative for dizziness, vertigo, facial asymmetry, weakness and numbness. Hematological: Negative for adenopathy. Does not bruise/bleed easily. Psychiatric/Behavioral: Negative for agitation and behavioral problems. Objective BP 121/75 Pulse 82 Temp 37.2 C (98.9 F) Resp 18 Wt 58 kg (127 lb 13.9 oz) LMP 03/02/2024 (Exact Date) SpO2 99% BMI 21.95 kg/m Physical Exam Vitals and nursing note reviewed. Constitutional: General: She is not in acute distress. Appearance: Normal appearance. She is normal weight. She is not ill-appearing, toxic-appearing or diaphoretic. HENT: Head: Normocephalic and atraumatic. Right Ear: Ear canal and external ear normal. Left Ear: Ear canal and external ear normal. Ears: Comments: Right TM erythematous and bulging Nose: Congestion present. No rhinorrhea. Mouth/Throat: Mouth: Mucous membranes are moist. Pharynx: Posterior oropharyngeal erythema present. No oropharyngeal exudate. Eyes: General: Right [...] Left lower leg: No edema. Lymphadenopathy: Cervical: Cervical adenopathy present. Skin: General: Skin is warm and dry. [...] Judgment normal. Assessment and Plan ASSESSMENT/PLAN: 1. Acute otitis media, right - ICD9: 382.9, ICD10: H66.91 (primary diagnosis) - Will begin treatment with as per antibiotic as written, see orders - The patient should also be given OTC cough and cold meds as needed, warm salt water gargles, throat lozenges and/or OTC throat spray as needed, and nasal saline gtts and suction prn for the first 5-7 days of treatment. - Supportive care with plenty of fluids, rest, and analgesia prn. - Follow up in 3-5 days if symptoms persist or worsen. 2. URI, acute - ICD9: 465.9, ICD10: J06.9 - Symptomatic treatment with prn analgesia - Supportive care with fluids and rest - The patient may also use OTC cough and cold meds as needed, warm salt water gargles, throat lozenges and/or OTC throat spray as needed, and nasal saline gtts and suction prn. - Follow up in 3-5 days if symptoms persist or sooner if worsening of symptoms Dixie Mari APRN.[employer]INNER documented in this encounter [facility] 05-15-2023 History of Present illness Narrative 33-year-old female presents for left ankle pain for about 1 week. Patient states that she has not had a fall or injury. She has been having left anterior ankle pain for the past week. She states when she runs she occasionally gets some pain in her ankles, but the pain is worse than normal. She denies any posterior ankle pain, calf pain or swelling. She has been taking Tylenol with minimal improvement. No XR available at time of examination. I did offer aircast, for patient to return tomorrow for XR, and orthopedic referral. Low suspicion for fracture as she has not had injury. However, patient has kids and states that it would be difficult for her to return tomorrow, so she prefers to go to the emergency room and have XR completed tonight. Appointment canceled as patient wants to go to ER. documented in this encounter [facility] 03-06-2023 Hospital Discharge instructions Additional Instructions Thank you for trusting us with your care today! Your hemoglobin level (the blood test we used to determine if you are anemic or have low blood counts) was 10.7 today. Downtrending slightly from prior hemoglobin in 2019 of 11.7. It is not at the significant level of 7. Did not require blood transfusion. You are okay to be discharged. You should follow-up with [facility] the next available appointment. Please return if you develop chest pain, shortness of breath, if you lose consciousness, you develop lightheadedness, excessive fatigue or pallor of your skin. Please take Tylenol (2 pills, 650 mg), ibuprofen (2 pills, 400 mg) every 6 hours as needed for pain and fever control. Please return to the emergency department if your symptoms change or worsen. Please follow with your primary care physician for further outpatient evaluation and management. [facility] Work Phone: 01-13-2023 History of Present illness Narrative Subjective [...] - PREDNISONE 20 MG TABLET Domenic Guo APRN.[employer]NER documented in this encounter [facility] 01-03-2023 History of Present illness Narrative This note was created using [employer]. Subjective Rosi Singleton is a 32 year [...] 3 - Low documented in this encounter [facility] 06-14-2022 History of Present illness Narrative This note was created using [employer]. Subjective Rosi Singleton is a 32 year old female. HPI Presents with postnasal drip, congestion in the back of the throat over the past month. Her ear started bothering her the past 2 days. The left worse than the right. She put some [id number] drops in the left ear but they [...] injection (DEFINITY) INTRAVENOUS DIRECTED PRN Ursula Older, DIE WELDERPORTILLO sodium chloride 0.9 % (flush) 10 mL (BD POSIFLUSH) 10 mL INTRAVENOUS DIRECTED PRN Ursula Britton DIE WELDERLoraineCALF SKINNER PAST SURGICAL HISTORY Procedure Laterality Date NONE [...] Rabia Dumont PA-C documented in this encounter [facility] 12-14-2021 Instructions Dixie Mari APRN.TIAGO - 12/14/2021 12:57 PM EDT [facility] [...] (eg, ice cream, popsicles). Alternative therapies -- Health food stores, vitamin outlets, and Internet Web [...] contaminate your hand documented in this encounter [facility] 12-14-2021 History of Present illness Narrative This note was created using [employer]. Subjective Rosi Singleton is a 31 year [...] history is provided by the patient. No typesetting supervisor was used. Sore Throat This is a [...] A MOLECULAR (POC) Declines COVID testing Dixie Mari APRN.[employer]NER documented in this encounter [facility] 10-30-2021 Nurse Note EVENT MONITOR DISPOSABLE PATCH INSTRUCTIONS Patient Name: Rosi Singleton Clinic Number: [id number] Skin prepped and cleansed with alcohol Patch secured to prepped area Monitor Activated Serial #: [id number] Patient Instructed: Prescribed order timeframe Bathing guidelines Usage of event button and diary documentation Return of monitor at the end of prescribed order Call with problems [phone] or [phone]. [phone] Patient expresses a good understanding of instructions Dylan Umanzor Ma documented in this encounter [facility] 10-30-2021 History of Present illness Narrative CC: Patient presents with: Physical: Form for work HPI Rosi Singleton is a 31 year old female who presents today for above. She needs form filled out for [employer] clearing her to work [...] no known allergies. MEDICATIONS Norethindrone Acet-Ethinyl Est (JUNE,) 1-20 mg-mcg per tablet Take 1 tablet [...] 102 Resp 16 Ht 162.6 cm (5' 4) Wt 57.2 kg (126 lb) LMP 03/21/2019 [...] Ursula Britton APRN.CNP documented in this encounter [facility] 05-01-2011 History of Past i llness Narrative Problem Noted Date Resolved Date Gestational thrombocytopenia 05/01/201112/2011 Anemia during 05/01/2011 06/17/19 12 Unspecified high-risk 05/01/2011 06/17/2011 documented as of this encounter (statuses as of 10/30/2021) [facility] History of Past illness Narrative* Problem Noted Date Resolved Date Gestational thrombocytopenia 05/01/201112/2011 Anemia during 05/01/2011 06/17/19 12 Unspecified high-risk 05/01/2011 06/17/2011 documented as of this encounter (statuses as of 12/14/2021) [facility] History of Past illness Narrative* Problem Noted Date Resolved Date Gestational thrombocytopenia 05/01/201112/2011 Anemia during 05/01/2011 06/17/19 12 Unspecified high-risk 05/01/2011 06/17/2011 documented as of this encounter (statuses as of 06/14/2022) [facility] History of Past illness Narrative* Problem Noted Date Diagnosed Date Resolved Date Gestational thrombocytopenia 05/01/2011 06/17/2011 Anemia during 05/01/201106/07 Unspecified high-risk 05/01/2011 06/17/2011 documented as of this encounter (statuses as of 01/03/2023) [facility] History of Past illness Narrative* Problem Noted Date Diagnosed Date Resolved Date Gestational thrombocytopenia 05/01/2011 06/17/2011 Anemia during 05/01/201106/07 Unspecified high-risk 05/01/2011 06/17/2011 documented as of this encounter (statuses as of 01/14/2023) [facility] History of Past illness Narrative* Problem Noted Date Diagnosed Date Resolved Date Gestational thrombocytopenia 05/01/2011 06/17/2011 Anemia during 05/01/201106/07 Unspecified high-risk 05/01/2011 06/17/2011 documented as of this encounter (statuses as of 05/15/2023) [facility] note* Diagnosis Palpitations- Primary Vitreous floaters, unspecified laterality Tachycardia Tachycardia, unspecified Encounter for physical examination related to employment documented in this encounter [facility] note* Diagnosis Pharyngitis, unspecified etiology- Primary documented in this encounter [facility] note* Diagnosis Acute otitis externa of left ear, unspecified type- Primary Post-nasal drip Postnasal drip documented in this encounter [facility] note* Diagnosis Sore throat- Primary Acute pharyngitis documented in this encounter [facility] note* Diagnosis URI, acute- Primary Acute upper respiratory infections of unspecified site documented in this encounter [facility] noteNo assessment information availableWMercy Health Work Phone: Evaluation note* Diagnosis Onset Date Resolution Status Abnormal uterine bleeding ac ho-chunk Anemia acute Leukopenia acute Thrombocytopenia acute [facility] Work Phone: Evaluation note* Diagnosis Onset Date Resolution Status Abnormal uterine bleeding ac ho-chunk Anemia acute Leukopenia acute Thrombocytopenia acute Iron deficiency anemia acute Pancytopenia acute [facility] Work Phone: Evaluation note* Diagnosis Onset Date Resolution Status Abnormal uterine bleeding ac ho-chunk Anemia acute Leukopenia resolved Thrombocytopenia resolved Iron deficiency anemia acute Pancytopenia acute Iron deficiency anemia acute Leukopenia resolved Thrombocytopenia resolved [facility] Work Phone: Evaluation note* Diagnosis Procedure not carried out- Primary Procedure not carried out for other reasons documented in this encounter [facility] note* Diagnosis Onset Date Resolution Status Abnormal uterine bleeding ac ho-chunk Anemia acute Leukopenia resolved Thrombocytopenia resolved Iron deficiency anemia acute Pancytopenia acute Iron deficiency anemia acute Leukopenia resolved Thrombocytopenia resolved Abnormal uterine bleeding ac ho-chunk Iron deficiency anemia acute Leg edema, left acute [facility] Work Phone: Evaluation note* Diagnosis Acute otitis media, right- Primary Unspecified otitis media URI, acute Acute upper respiratory infections of unspecified site [facility] Diagnosis Vitreous floaters of both eyes- Primary Myopia, bilateral Myopia documented [facility] Discharge instructions Additional Instructions Alternate Tylenol and ibuprofen as needed for your pain. Follow-up with PCP in 1 week if no improvement.[facility] Work Phone: Reason for referral (narrative)* Outpatient Procedure (Routine) - Authorized Specialty Diagnoses / Procedures Referred By Yamileth t [facility] Diagnoses Palpitations Tachycardia Procedures ECHO ECHO TTHRC R-T 2D W/WOM-MODE COMPL SPEC&COLR D Ursula Britton APRN.[employer]INNER [address] [place] [address] [facility] [place] [id number] Referral ID Status Reason Start Date Expiration Date Visits Requested Visits Authorized [id number] Authorized Auto-Generat ed Referral 10/30/2021 10/30/2022 1 1 * Outpatient Procedure (Routine) - Closed Specialty Diagnoses / Procedures Referred By Yamileth mejias Referred To Contact [facility] [place] Diagnoses Palpitations Tachycardia Procedures ECG COMPLETE ECG ROUTINE ECG W/LEAST 12 LDS W/I&R Ursula Britton APRN.[employer]F SKINNER [address] [place] [address] [facility] [place] [address] Referral ID Status Reason Start Date Expiration Date V isits Requested Visits Authorized [id number] Closed Auto-Generate d Referral 10/30/2021 10/30/2022 1 1 * Consult, Test, Treat (Routine) - Authorized Specialty Diagnoses / Procedures Referred By Contac t Referred To Contact Ophthalmology Diagnoses Vitreous floaters, unspecified laterality Procedures CONSULT TO OPHTHALMOLOGY OFFICE/OUTPATIENT NEW HIGH MDM 60-74 MINUTES Ursula Britton APRN.[employer]F SKINNER [address] [place] [address] Referral ID Status Reason Start Date Expiration Date Visits Requested Visits Authorized [id number] Authorized PCP Requested Referral 10/30/2021 10/30/2022 1 1 [facility] Chief Complaint and Reason for Visit Chief Complaint BLEEDING Chief Complaint BLEEDING INT LABS Chief Complaint BLEEDING INT LABS ABN UTERINE BLEEDING, ANEMIA Chief Complaint BLEEDING INT LABS ABN UTERINE BLEEDING, ANEMIA New patient [facility] F/U AUB E-ORDER Reason for Visit Abnormal uterine ble eding Anemia Leukopenia Thrombocytopenia Chief Complaint BLEEDING INT LABS ABN UTERINE BLEEDING, ANEMIA New patient [facility] F/U AUB E-ORDER AUB NEW PT - ANEMIA MED ONC/ EORDER LABS Reason for Visit Abnormal uterine ble eding Anemia Leukopenia Thrombocytopenia Iron deficiency anemia Pancytopenia Chief Complaint BLEEDING INT LABS ABN UTERINE BLEEDING, ANEMIA New patient [facility] F/U AUB E-ORDER AUB NEW PT - ANEMIA MED ONC/ EORDER LABS 1WK LABS PRIOR ANKLE PAIN Reason for Visit Abnormal uterine ble eding Anemia Leukopenia Thrombocytopenia Iron deficiency anemia Pancytopenia Iron deficiency anemia Leukopenia Thrombocytopenia Chief Complaint BLEEDING INT LABS ABN UTERINE BLEEDING, ANEMIA New patient [facility] F/U AUB E-ORDER AUB NEW PT - ANEMIA MED ONC/ EORDER LABS 1WK LABS PRIOR ANKLE PAIN 6 wk FU LLE EDEMA Reason for Visit Abnormal uterine ble eding Anemia Leukopenia Thrombocytopenia Iron deficiency anemia Pancytopenia Iron deficiency anemia Leukopenia Thrombocytopenia Abnormal uterine bleeding Iron deficiency anemia Leg edema, left Advance Directives No Advanced Directives Records Found Advance Directive Response Recorded Date/ Time Living Will No March 06 023 6:21pm Power of Straddle Carrier Operator No March 06, 2023 6:21pm Advance Directive Response Recorded Date/ Time Living Will No May 15, 2023 6:33pm Power of Straddle Carrier Operator No May 14 6:33pm Advance Directive Response Recorded Date/ Time Living Will No May 15, 2023 7:33pm Power of Straddle Carrier Operator No May 14 7:33pm Family History No Family History Records Found Relationship Condition Age at Onset Recorded Date/T patrick Not Specified Myocardial infarction Unknown father Malignant neoplasm of pancreas Unknown Diabetes mellitus Unknown Venous thrombosis Unknown daughter Type 1 diabetes mellitus Unknown Summary Purpose Additional Source Comments Source Comments (unrecognize d section and content) In the event this informatio n is protected by the Federal Confidentiality of Alcohol and Drug Abuse Patient Records regulations: The Federal rules restrict any use of the information to criminally investigate or prosecute any alcohol or drug abuse patient.[facility] event this information is protected by the Federal Confidentiality of Alcohol and Drug Abuse Patient Records regulations: The Federal rules restrict any use of the information to criminally investigate or prosecute any alcohol or drug abuse patient.[facility] the event this information is protected by the Federal Confidentiality of Alcohol and Drug Abuse Patient Records regulations: The Federal rules restrict any use of the information to criminally investigate or prosecute any alcohol or drug abuse patient.[facility] the event this information is protected by the Federal Confidentiality of Alcohol and Drug Abuse Patient Records regulations: The Federal rules restrict any use of the information to criminally investigate or prosecute any alcohol or drug abuse patient.[facility] the event this information is protected by the Federal Confidentiality of Alcohol and Drug Abuse Patient Records regulations: The Federal rules restrict any use of the information to criminally investigate or prosecute any alcohol or drug abuse patient.[facility] the event this information is protected by the Federal Confidentiality of Alcohol and Drug Abuse Patient Records regulations: The Federal rules restrict any use of the information to criminally investigate or prosecute any alcohol or drug abuse patient.[facility] the event this information is protected by the Federal Confidentiality of Alcohol and Drug Abuse Patient Records regulations: The Federal rules restrict any use of the information to criminally investigate or prosecute any alcohol or drug abuse patient.[facility] the event this information is protected by the Federal Confidentiality of Alcohol and Drug Abuse Patient Records regulations: The Federal rules restrict any use of the information to criminally investigate or prosecute any alcohol or drug abuse patient.[facility] Reason for Visit (unrecogniz ed section and content) Reason Comments Physical Form for work Reason Comments scratcy and swollen throat X 1 day Reason Comments Ear Pain Bilateral ear pain x 2 days, congestion and drainage x1 month Reason Comments Pain Right side of neck d own right arm, discomfort more than pain. Throat feels like its burning. 1 day Reason Comments drainage and loss of voice X 5 days Reason Comments Sinus Problem Lots of drainage it throat, feels like she can't catch her breath x 1 week Ear Pain R ear pain x 1 day Reason Comments Floaters Both Eyes Lines and dots Care Teams (unrecognized sec tion and content) Team Status: Active Member Role Status Dates No Primary Care Physician Family Provider Active No Primary Care Physician Primary Care Provider Active Team Status: Inactive Member Role Status Dates No Primary Care Physician Primary Care Provider Active Dr. Dimitri Jerez DO Emergency Provider Active Team Status: Inactive Member Role Status Dates No Primary Care Physician Primary Care Provider Active Dr. Dimitri Jerez DO Attending Provider, Emergency P jose Active Team Status: Inactive Member Role Status Dates No Primary Care Physician Primary Care Provider Active Dr. Renate East MD Attending Provider, Referr ing Provider Active Team Status: Inactive Member Role Status Dates No Primary Care Physician Primary Care Provider, Refer ring Provider Active Dr. Renate East MD Attending Provider Active Team Status: Inactive Member Role Status Dates No Primary Care Physician Primary Care Provider, Refer ring Provider Active Dr. Stanislav Cervantes MD Attending Provider Active Team Status: Active Member Role Status Dates No Primary Care Physician Primary Care Provider Active Dr. Stanislav Cervantes MD Attending Provider, Referring Pro vider Active Team Status: Inactive Member Role Status Dates No Primary Care Physician Primary Care Provider Active Dr. Stanislav Cervantes MD Attending Provider Active Dr. Renate East MD Referring Provider Active Team Status: Inactive Member Role Status Dates No Primary Care Physician Primary Care Provider Active Dr. Akash Simpson DO Emergency Provider Active Team Status: Active Member Role Status Dates No Primary Care Physician Primary Care Provider Active Dr. Dnoovan Yan MD Attending Provider Active Dr. Renate East MD Referring Provider Active Team Status: Inactive Member Role Status Dates No Primary Care Physician Primary Care Provider Active Dr. Akash Simpson DO Attending Provider, Emergency Provide r Active Goals (unrecognized section and content) Goals may be documented in a n alternate sectionGoals may be documented in an alternate sectionGoals may be documented in an alternate sectionGoals may be documented in an alternate sectionGoals may be documented in an alternate sectionGoals may be documented in an alternate sectionGoals may be documented in an alternate section INFORMATION SOURCE (unrecogn ized section and content) DATE CREATED AUTHOR 02/11/2024 [facility] DATE CREATED AUTHOR AUTHOR'S BREANN COTTO 10/12/2024 [facility] FOR RECORDS PERTAINING TO PATIENTS WHO ARE [...] BE BASED ON THE PRIMARY CLINICAL RECORDS. [employer] [facility]. provides no warranty or guarantee of the accuracy or completeness of information in this document.
[2024-10-18 04:43] LABS: AST(SGOT) 19 U/L (<=31); Alanine Aminotransfer ALT/SGPT 14 U/L (<=34); Albumin, Serum 4.3 g/dL (3.5-5.0); Alkaline Phosphatase 42 U/L (35-104); Anion Gap 15 (5-15); BUN 11 mg/dL (4-19); BUN/Creat Ratio 13.5 RATIO (10-20); Bilirubin, Direct 0.10 mg/dL (0.00-0.30); Calcium,Total 9.0 mg/dL (7.6-11.0); Carbon Dioxide 18.4 mmol/L (21.0-32.0); Chloride 105 mmol/L (98-108); Estimated Creatinine Clearance 84.51 ml/min (50-250); Globulin 2.9 g/dL (2.2-4.2); Glucose 79 mg/dL (70-99); Lipase 65 U/L (13-75); Potassium 3.5 mmol/L (3.3-5.1)
--- NOTE | 2024-10-18 04:55 | CT_ITS ---
PROCEDURE: ABDOMEN/PELVIS W IV CONT ONLY 10/18/2024 REASON FOR EXAM: ABD PAIN TECHNIQUE: ABDOMEN/PELVIS W IV CONT ONLY Coronal and Sagittal reconstruction series were provided. CONTRAST: Isovue 370 VOLUME: 97 mL One or more dose reduction techniques were used (e.g., Automated exposure control, adjustment of the mA and/or kV according to patient size, use of iterative reconstruction technique. RADIATION DOSE SUMMARY: CTDlvol: 21 mGy DLP: 399 mGycm COMPARISON: No FINDINGS: Clear lung bases. Normal heart size. Normal liver, pancreas, spleen, adrenal glands, kidneys. Hydronephrosis. Normal bladder. Normal uterus and right ovary. Involuting left ovarian cyst. Pelvic free fluid. No retroperitoneal or pelvic adenopathy. No free air. Nondistended bowel. Normal appendix. No acute large bowel findings. No acute abdominal wall findings. CT/Abdomen/Pelvis W IV Cont ONLY IMPRESSION: Recent left ovarian cyst rupture with pelvic fluid, this can be a cause of pain . Reading Location: [place] [id number]
[2024-10-18 05:00] VITALS: BP 116/75; PULSE 73; RESP 16; O2SAT 100
[2024-10-18 05:03] LABS: Red Blood Cells-Urine 0-5 SEEN /hpf (0-5); Squamous Epithelial Cells - UA 5-10 SEEN /hpf (5-10)
[2024-10-18 05:10] LABS: Internal QC Validated? YES +Cl - CLEAR BKGD; Pregnancy, Urine Negative Negative
[2024-10-18 05:11] LABS: Record Kit Lot#,Urine Preg 0000947241
[2024-10-18 05:25] VITALS: BP 109/70; PULSE 70; RESP 16; TEMP 36.6; O2SAT 99
== END 2024-10-18 05:30 | disposition home or self-care (01) ==
PROVIDERS: Emergency Provider Emergency Medicine; Visit Provider Emergency Medicine
DX: N83.202 Unspecified ovarian cyst, left side (principal); D50.9 Iron deficiency anemia, unspecified
CPT/HCPCS: 74177; 80048; 80076; 81001; 81025; 83690; 85025; 96361; 96374; 96375; 99283; Q9967; A4216; J2405

== ENCOUNTER → 2025-01-23 | Outpatient (CLI) | payer MEDICAID, SELFPAY ==
[2025-01-23 11:02] LABS: Hematocrit 35.5 % (37-47); Hemoglobin 12.3 g/dL (12.0-15.0); Immature Granulocytes Count 0.020 X10^3/uL (0.0-0.0); Mean Corp Hgb Conc 34.6 g/dL (32-36); Mean Corpuscular Volume 90.6 fL (81-99); Mean Platelet Vol. 9.3 fl (6.2-12.0); NRBC Flagged by Analyzer 0 % (0-5); Platelet Count 164 K/mm3 (150-450); RBC Distribution Width CV 11.8 % (11.6-14.6); RBC Distribution Width SD 38.7 fl (35.1-43.9); Red Blood Count 3.92 M/mm3 (4.2-5.4); White Blood Count 3.8 K/mm3 (4.4-11.0)
[2025-01-23 11:55] LABS: AST(SGOT) 23 U/L (<=31); Alanine Aminotransfer ALT/SGPT 18 U/L (<=34); Albumin, Serum 4.6 g/dL (3.5-5.0); Alkaline Phosphatase 47 U/L (35-104); Anion Gap 10 (5-15); BUN 16 mg/dL (4-19); BUN/Creat Ratio 23.6 RATIO (10-20); Calcium,Total 9.8 mg/dL (7.6-11.0); Carbon Dioxide 24.4 mmol/L (21.0-32.0); Chloride 105 mmol/L (98-108); Globulin 3.2 g/dL (2.2-4.2); Glucose 85 mg/dL (70-99); Iron 182 ug/dL (50-170); Iron Binding Capacity,Total 323 ug/dL (250-450); Iron Binding Capacity,Unsat 141 ug/dL (228-428); Potassium 4.0 mmol/L (3.3-5.1); Vitamin B12 450 pg/mL (180-914)
[2025-01-23 12:27] LABS: Ferritin 17 ng/mL (22-378)
== END | disposition home or self-care (01) ==
LOC: LAB 09:29
PROVIDERS: Referring Provider Internal Medicine Medical Oncology; Visit Provider Internal Medicine Medical Oncology
DX: D50.9 Iron deficiency anemia, unspecified (principal)
CPT/HCPCS: 36415; 80053; 82607; 82728; 83540; 83550; 85025